=== PATIENT | male | born 1945 | race Caucasian/White ===

== ENCOUNTER 2016-04-10 15:57 | Outpatient (RCR) | payer MEDICARE | END 2016-07-09 | disposition home or self-care (01) | LOC: ONC 15:57 | PROVIDERS: ATTEND Radiology Radiation Oncology | DX: C61 Malignant neoplasm of prostate (principal) | CPT/HCPCS: 36415; 84153 ==

== ENCOUNTER → 2016-04-10 | Outpatient (CLI) | payer MEDICARE ==
[~2016-04-10] MED LIST: ASP81CT PO; ASPI-9 PO; ATEN100T88 PO; ATEN50TA PO; CLOP75TA PO; CYCL5TAB PO; DOXA2TAB2 PO; HYDR1TAB PO; LISI20TA PO; LOVA20TA2 PO; MTF500T PO; MULT1CAP27 PO; NIFE60TA74 PO; OMEG-11 PO; OMG1KC PO; QUET200T28 PO; QUET50TA21 PO; TRM50T PO
== END ==
LOC: ONC 08:24
PROVIDERS: ATTEND Radiology Radiation Oncology
DX: C61 Malignant neoplasm of prostate (principal)

== ENCOUNTER → 2016-10-09 | Outpatient (CLI) | payer MEDICARE | LOC: EDSTATUS 07-10 14:23 → ONC 14:15 | PROVIDERS: ATTEND Radiology Radiation Oncology | DX: C61 Malignant neoplasm of prostate (principal) | CPT/HCPCS: 36415; 84153 ==

== ENCOUNTER 2017-04-16 06:30 | Outpatient (CLI) | payer MEDICARE ==
[~2017-04-16] VITALS: Ht 170.2 cm; Wt 95.3 kg
[2017-04-16] MEDS ORDERED: OMEG-179 PO (10:30)
[2017-04-16] MEDS ORDERED: ATEN50TA PO (10:30)
[2017-04-16] MEDS ORDERED: DOXA2TAB2 PO (10:30)
[2017-04-16] MEDS ORDERED: METF500T4 PO (10:30)
[2017-04-16] MEDS ORDERED: NIFE60TA64 PO (10:30)
[2017-04-16] MEDS ORDERED: QUET200T57 PO (10:30)
[2017-04-16] MEDS ORDERED: MULT1TAB69 PO (10:30)
[2017-04-16] MEDS ORDERED: CLOP75TA28 PO (10:30)
[2017-04-16] MEDS ORDERED: ASPI-586 PO (10:30)
[2017-04-16] MEDS ORDERED: LOVA20TA2 PO (10:30)
[2017-04-18] MEDS ORDERED: ACHD5005 PO (12:46)
== END 2017-04-16 10:48 ==
LOC: PREOP 06:30
PROVIDERS: ATTEND Surgery
DX: Z01.818 Encounter for other preprocedural examination (principal); L72.3 Sebaceous cyst

== ENCOUNTER → 2017-06-07 | Outpatient (CLI) | payer MEDICARE ==
[~2017-06-07] MED LIST changes: +ACHD5005 PO; +ASPI-586 PO; +CATHETER FLUSH 10 ML SYR IV PRN; +CLOP75TA28 PO; +GADOBUTROL 10 MMOL/10 ML (GADAVIST) VIAL IV ONE; +METF500T5 PO; +MULT1TAB69 PO; +NIFE60TA64 PO; +OMEG-179 PO; +QUET200T57 PO
--- NOTE | 2017-06-07 16:10 | Diagnostic Imaging Report ---
INDICATION: Prostate carcinoma. TECHNIQUE: The patient was administered 26.9 mCi of technetium 99M MDP intravenously and whole-body imaging was performed after a 3 hour delay. COMPARISON: No prior studies are available for comparison. FINDINGS: There is normal uptake of activity by the axial and appendicular skeleton. There is uptake by both kidneys with excretion into the urinary bladder. No abnormal foci of tracer accumulation is seen to suggest osseous metastatic disease. There are degenerative changes of the bilateral knees. IMPRESSION: No scintigraphic evidence of osseous metastatic disease. Dictated by: Dictated on workstation # [id number]
--- NOTE | 2017-06-07 17:35 | Diagnostic Imaging Report ---
PROCEDURE: MRI pelvis with and without contrast. TECHNIQUE: Multiplanar, multisequence MRI of the pelvis was performed with and without contrast. INDICATION: Prostate cancer. There are no previous MRI pelvis examinations available for comparison. FINDINGS: The nuclear medicine bone scan performed earlier today in conjunction with this study failed to show any sign of metastatic disease. On this exam, there is no abnormal signal arising from the osseous structures to suggest a marrow replacement process such as metastatic disease. There is no sign of a fracture either. On the T1 sagittal images, there is a vague area of slightly diminished signal within the vertebral body of S2. There is no corresponding abnormality seen on the other sequences, however. There is no abnormal uptake in this region on the bone scan either. Consequently, this finding is unlikely related to a significant abnormality. There is only moderate degenerative disease of the hip joints. There is no evidence for avascular necrosis of either hip joint. There is a fairly well circumscribed 1 cm area of diminished density in the right ilium. This is of uncertain etiology although most likely a benign process. There is no pelvic mass or free fluid collection noted. IMPRESSION: There is no evidence for an acute bony abnormality and there is no sign of metastatic disease. Dictated by: Dictated on workstation # [id number]
== END ==
LOC: CARD 11:32
PROVIDERS: ATTEND Radiology Radiation Oncology
DX: C61 Malignant neoplasm of prostate (principal)
CPT/HCPCS: 72197; 78306

== ENCOUNTER 2017-06-20 14:32 | Outpatient (RCR) | payer MEDICARE ==
[2017-06-07 11:50] LABS: CREATININE SERUM 0.82 MG/DL (0.60-1.30)
[~2017-06-20 14:32] MED LIST changes: -CATHETER FLUSH 10 ML SYR IV PRN; -GADOBUTROL 10 MMOL/10 ML (GADAVIST) VIAL IV ONE
== END 2017-07-10 | disposition home or self-care (01) ==
LOC: ONC 14:32
PROVIDERS: ATTEND Radiology Radiation Oncology
DX: C61 Malignant neoplasm of prostate (principal)
CPT/HCPCS: 36415; 76873; 82565; 84153; 84520; 99212; 99213

== ENCOUNTER → 2017-07-13 | Outpatient (CLI) | payer MEDICARE ==
[~2017-07-13] VITALS: Ht 170.2 cm; Wt 97.1 kg
[~2017-07-13] MED LIST changes: +CATHETER FLUSH 10 ML SYR IV PRN; +REGADENOSON 0.4 MG/5 ML SYR (LEXISCAN) IV ONE
[2017-07-13 09:30] VITALS: BP 153/70
[2017-07-13 09:32] VITALS: BP 136/71
--- NOTE | 2017-07-20 09:54 | STRESS TEST ---
DATE OF SERVICE: 07/13/2017 RESTING AND POST REGADENOSON TECHNETIUM-99M TETROFOSMIN SPECT CT IMAGING CLINICAL DIAGNOSIS: Coronary artery disease. ORDERING PHYSICIAN: DINORAH Lucio. PRIMARY PHYSICIAN: Ross Rai DO. Baseline images were carried out after injection of 11 mCi of technetium-99m tetrofosmin. This was followed by 0.4 mg regadenoson and 29.5 mCi of technetium-99m tetrofosmin for stress imaging. The electrocardiogram showed sinus rhythm at baseline. It did not change significantly with the regadenoson infusion. There was a right bundle branch block that persisted throughout the study. 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 Review of images at rest and following stress indicates diminished count uptake in the inferior wall both at rest and following regadenoson infusion. This is likely diaphragmatic attenuation. Gated images show normal global left ventricular systolic function with normal regional wall motion, including the inferior wall. Left ventricular ejection fraction is calculated to be 58%. Left ventricular end diastolic volume is 97 mL. TID is absent (1.17). CONCLUSIONS: 1. No evidence of any significant myocardial ischemia or infarction on this study. 2. Normal regional wall motion. 3. Normal global left ventricular systolic function with a calculated ejection fraction of 58%. Job ID: [id number] DocumentID: [id number] Dictated Date: 07/20/2017 07:04:47 Plate Finisher Date: 07/20/2017 09:53:53 Dictated By: DUSTY GARCIA MD, MA, FACP, FACC,
== END ==
LOC: CARD 07:24
PROVIDERS: ATTEND Nurse Practitioner Family
DX: I25.10 Atherosclerotic heart disease of native coronary artery without angina pectoris (principal); I10 Essential (primary) hypertension; E78.5 Hyperlipidemia, unspecified; E11.9 Type 2 diabetes mellitus without complications; E66.8 Other obesity
CPT/HCPCS: 78452; 93017

== ENCOUNTER → 2017-07-26 | Outpatient (CLI) | payer MEDICARE ==
[~2017-07-26] MED LIST changes: -CATHETER FLUSH 10 ML SYR IV PRN; -REGADENOSON 0.4 MG/5 ML SYR (LEXISCAN) IV ONE
== END ==
LOC: CARD 13:25
PROVIDERS: ATTEND Nurse Practitioner Family
DX: I25.10 Atherosclerotic heart disease of native coronary artery without angina pectoris (principal); I10 Essential (primary) hypertension; E78.5 Hyperlipidemia, unspecified; E11.9 Type 2 diabetes mellitus without complications; E66.8 Other obesity; I77.89 Other specified disorders of arteries and arterioles
CPT/HCPCS: 93306

== ENCOUNTER 2017-09-12 12:04 | Outpatient (RCR) | payer MEDICARE ==
[~2017-09-12 12:04] MED LIST changes: +METF-397 PO; -METF500T5 PO
== END 2017-10-12 | disposition home or self-care (01) ==
LOC: ONC 12:04
PROVIDERS: ATTEND Radiology Radiation Oncology
DX: C61 Malignant neoplasm of prostate (principal)
CPT/HCPCS: 84153

== ENCOUNTER 2018-02-22 05:31 | Outpatient (CLI) | payer MEDICARE ==
[~2018-02-22] VITALS: Ht 170.2 cm; Wt 97.1 kg
== END 2018-02-22 11:29 | disposition home or self-care (01) ==
LOC: PREOP 05:31
PROVIDERS: ATTEND Surgery
DX: Z01.818 Encounter for other preprocedural examination (principal)

== ENCOUNTER 2018-02-27 09:33 | Day surgery (SDC) | payer MEDICARE ==
[~2018-02-27] VITALS: Ht 170.2 cm; Wt 97.1 kg
[2018-02-27 09:40] VITALS: BP 164/71
[2018-02-27] MEDS ORDERED: ceFAZolin 2 GM IV Premixed 50 ML IV ONE (09:45)
[2018-02-27] MEDS: LACTATED RINGERS 1,000 ML IV PRN ×2 (10:12→12:50)
--- NOTE | 2018-02-27 10:34 | Progress Note-Pre Operative ---
Pre-Operative Progress Note H&P Reviewed The H&P was reviewed, patient examined and no changes noted. Date Seen by Provider: Feb 13, 2018 Time Seen by Provider: 11:00 Date H&P Reviewed: Feb 27, 2018 Time H&P Reviewed: 10:33 Pre-Operative Diagnosis: Skin lesion LARRY NO MD Feb 27, 2018 10:34
[2018-02-27] MEDS ORDERED: fentaNYL INJECTION 100 MCG/2 ML AMP ONE (10:35)
[2018-02-27] MEDS ORDERED: proPOfol 200 MG/20 ML (DIPRIVAN) VIAL IV ONE (10:35)
[2018-02-27] MEDS ORDERED: ONDANSETRON 4 MG/2 ML (SDV) Z0FRAN ONE (10:35)
[2018-02-27] MEDS ORDERED: LIDOCAINE PF 2% 5 ML (XYLOCAINE) VIAL ONE (10:35)
[2018-02-27] MEDS ORDERED: SEVOFLURANE (ULTANE) 15 ML INHAL SOLN ONE ×4 (10:36→12:54)
[2018-02-27] MEDS ORDERED: MIDAZOLAM 2 MG/2 ML (VERSED) VIAL ONE (10:36)
[2018-02-27] MEDS ORDERED: BUP/EPI 0.5% 1:200,000 (SENSORCAINE) 30 ML VIAL ONE (10:54)
[2018-02-27] MEDS ORDERED: TRAM50TA2 PO (12:31)
--- NOTE | 2018-02-27 12:33 | Discharge Inst-Simple/Standard ---
Discharge Inst-Standard Discharge Medications New, Converted or Re-Newed RX: RX on Chart Patient Instructions/Follow Up Plan of Care/Instructions/FU: Band aid off in 48 hours. F/U with my nurse in 10 days for suture removal Activity as Tolerated: Yes Discharge Diet: No Restrictions LARRY NO MD Feb 27, 2018 12:33
--- NOTE | 2018-02-27 12:41 | Operative Report ---
Operative Report Date of Procedure/Surgery Feb 27, 2018 Surgeon (s) LARRY NO MD Staff Nuclear Medicine Technologist (s): N/A Post-Operative Diagnosis same Procedure Performed excision Description of Procedure Anesthesia Type: General Estimated blood loss (mL): minimal Specimen(s) collected/removed skin lesion Description of the Procedure Indication for the procedure: This gentleman presented with an ulcerated lesion with everted edges involving the left side of his neck, requiring histologic confirmation. He was therefore offered excision with frozen section to achieve this and ensure negative margins, should carcinoma be discovered. Informed consent was obtained after reviewing the operative details and complications of hematoma and wound infection. Description of the procedure: He was placed supine on the operative table and general anesthesia induced. A gram of Ancef was administered intravenously as prophylaxis against wound infection. Sequential compression devices were placed around his legs, to minimize the risk of venous thrombosis. His neck was prepared and draped in the usual sterile manner. Preemptive analgesia was established using 0.5 percent Marcaine with epinephrine. An elliptical incision about 4 cm in length by 2 cm in width was made and the lesion excised down to the subcutaneous tissue. It was oriented with silk sutures and then sent for histological examination. Hemostasis was achieved using cautery and the incision closed using a deeper layer of 3-0 Vicryl and 6-0 nylon for skin, in an interrupted fashion. A nonadherent dressing was then applied. He tolerated the procedure well, was extubated in the operating room and taken to the recovery room in a stable condition. Findings of the Procedure See op report Allergies and Home Medications Allergies Coded Allergies: No Known Drug Allergies (Unverified , 02/22/18) Home Medications Aspirin 81 Mg Tablet.dr, 81 MG PO DAILY, (Reported) Atenolol 50 Mg Tablet, 100 MG PO BID, (Reported) TAKE 2 (50MG) TABS Clopidogrel Bisulfate 75 Mg Tablet, 75 MG PO DAILY, (Reported) Doxazosin Mesylate 2 Mg Tablet, 2 MG PO HS, (Reported) Lisinopril 20 Mg Tablet, 20 MG PO BID, (Reported) Lovastatin 20 Mg Tablet, 20 MG PO HS, (Reported) Metformin HCl 500 Mg Tablet, 500 MG PO BID WITH MEALS, (Reported) Multivitamin 1 Each Tablet, 1 EACH PO DAILY, (Reported) Nifedipine 60 Mg Tab.er.24, 60 MG PO DAILY, (Reported) [place]-3S/Dha/Epa/Fish Oil 1 Each Capsule, 1,200 MG PO BID, (Reported) Quetiapine Fumarate 200 Mg Tablet, 200 MG PO HS, (Reported) Tramadol HCl 50 Mg Tablet, 50 MG PO Q12H PRN for PAIN-MILD TO MODERATE Prescribed by: LARRY NO on 02/27/18 1231 Patient Home Medication List Home Medication List Reviewed: Yes LARRY NO MD Feb 27, 2018 12:41
[2018-02-27] MEDS ORDERED: PHENYLEPHRINE 100 MCG/ML 10 ML (ANESTHESIA) SYR ONE (12:55)
[2018-02-27] MEDS ORDERED: GLYCOPYRROLATE 0.2 MG/ML (ROBINUL) 2 ML VIAL ONE (12:55)
[2018-02-27] MEDS ORDERED: ONDANSETRON 4 MG/2 ML (SDV) Z0FRAN IVP PRN (13:00)
[2018-02-27] MEDS ORDERED: HYDROmorphone 2 MG/ML VIAL (DILAUDID) IV ONE (13:00)
[2018-02-27 13:25] VITALS: BP 137/71
[2018-02-27 14:00] VITALS: BP 142/65
--- NOTE | 2018-02-27 14:23 | Anesthesia-General Post-Op ---
General Patient Condition Mental Status/LOC: Same as Preop Cardiovascular: Satisfactory Nausea/Vomiting: Absent Respiratory: Satisfactory Pain: Controlled Complications: Absent Post Op Complications Complications None Follow Up Care/Instructions Patient Instructions None needed. Anesthesia/Patient Condition Patient Condition Patient is doing well, no complaints, stable vital signs, no apparent adverse anesthesia problems. TESHA MCLAUGHLIN DO Feb 27, 2018 14:23
[2018-02-27 14:30] VITALS: BP 155/72
[2018-02-27 14:50] VITALS: BP 155/72
--- NOTE | 2018-02-27 14:50 | NUR ---
ALERT, CHEERFUL, DENIES COMPLAINTS THROUGHOUT RECOVERY. BANDAIDS REMAIN D/I TO LEFT NECK SURGICAL SITE. TAKING PO FLUIDS WELL. REQUESTING DISMISSAL.
== END 2018-02-27 14:50 | disposition home or self-care (01) ==
LOC: SDC 09:33
PROVIDERS: ATTEND Surgery
DX: L85.9 Epidermal thickening, unspecified (principal); Z11.2 Encounter for screening for other bacterial diseases; I25.10 Atherosclerotic heart disease of native coronary artery without angina pectoris; I77.9 Disorder of arteries and arterioles, unspecified; E11.9 Type 2 diabetes mellitus without complications; E78.5 Hyperlipidemia, unspecified; I10 Essential (primary) hypertension; Z79.84 Long term (current) use of oral hypoglycemic drugs; Z79.899 Other long term (current) drug therapy; Z87.891 Personal history of nicotine dependence; Z95.5 Presence of coronary angioplasty implant and graft; E66.9 Obesity, unspecified; Z79.82 Long term (current) use of aspirin; Z85.46 Personal history of malignant neoplasm of prostate; Z85.828 Personal history of other malignant neoplasm of skin; Z92.3 Personal history of irradiation; Z68.33 Body mass index [BMI] 33.0-33.9, adult
CPT/HCPCS: 82962; 87081

== ENCOUNTER 2018-04-05 12:21 | Outpatient (RCR) | payer MEDICARE ==
[~2018-04-05 12:21] MED LIST changes: +TRAM50TA2 PO
== END 2018-07-04 | disposition home or self-care (01) ==
LOC: ONC 12:21
PROVIDERS: ATTEND Radiology Radiation Oncology
DX: C61 Malignant neoplasm of prostate (principal)
CPT/HCPCS: 36415; 84153

== ENCOUNTER → 2018-09-06 | Outpatient (CLI) | payer MEDICARE ==
--- NOTE | 2018-09-06 17:00 | Diagnostic Imaging Report ---
INDICATION: Thyroid nodules, follow-up. TECHNIQUE: Grayscale sonographic images of the thyroid gland. CORRELATION STUDY: 12/30/2013. FINDINGS: RIGHT LOBE: 4.8 x 2.4 x 2.0 cm. In the mid inferior aspect is a slightly hypoechoic, solid-appearing mass measuring approximately 2.2 x 1.9 x 1.3 cm, previously 2.3 x 2.1 x 2.0 cm, generally stable. There do appear to be a few echogenic calcifications. No appreciable internal vascular blood flow. Slightly more superiorly, but immediately adjacent there is additional nodule currently 17 x 12 x 11 mm, previously 13 x 13 x 12 mm, perhaps slightly increased in size. This is iso-to slightly hyperechoic with internal vascularity and a few microcalcifications suggested. LEFT LOBE: 4.2 x 2.4 x 2.4 cm. A mixed solid and cystic mass in the central aspect measures 3.2 x 2.0 x 2.0 cm, previously 2.9 x 2.1 x 1.9 cm, generally stable. Minimal internal vascularity. Isthmus appears unremarkable. IMPRESSION: Bilateral thyroid masses again demonstrated. There has been slight interval increase in size of the smallest lesion of the right lobe. This has the most atypical features. Either very short-term follow-up imaging or perhaps fine-needle aspiration/biopsy would be recommended. (Normal gland size: 4-5 x 2 x 2 cm) Dictated by: Dictated on workstation # [id number]
== END ==
LOC: RAD 10:33
PROVIDERS: ATTEND Family Medicine
DX: E04.2 Nontoxic multinodular goiter (principal)
CPT/HCPCS: 76536

== ENCOUNTER → 2018-09-19 | Outpatient (CLI) | payer MEDICARE ==
[~2018-09-19] VITALS: Ht 172.7 cm; Wt 99.8 kg
[~2018-09-19] MED LIST changes: +LIDOCAINE 1% INJ 20 ML 20 ML VIAL INJ ONE
--- NOTE | 2018-09-19 14:36 | Diagnostic Imaging Report ---
Indication: Right thyroid nodule. Patient presents for ultrasound-guided biopsy. Correlation made with prior thyroid ultrasound from 09/06/2018. Patient was brought to the procedure room and placed on the table in the supine position. Ultrasound imaging over the right neck was performed, evaluated appropriate injury site. Right neck was prepped and draped in the usual sterile fashion. Small amount of 1% lidocaine was utilized for local anesthesia. A total of 3 passes were made into the slightly hyperechoic nodule in the right lobe of the thyroid utilizing a 25-gauge needle. Procedure was technically challenging due to the deep nature of the nodule as well as significant movement of the nodule with each each respiration. This made needle visualization extremely difficult. Fine-needle aspiration technique was utilized. Hemostasis was obtained using manual compression. Patient tolerated the procedure well. Impression: Ultrasound-guided fine-needle aspiration of the right lobe of the thyroid nodule. Procedure was significantly challenging for reasons cited above. If cytology results are inconclusive or indeterminate, a followup thyroid ultrasound in 6 months is recommended to confirm stability of the nodule in question in the right lobe. Dictated by: Dictated on workstation # [id number]
== END ==
LOC: RAD 09:20
PROVIDERS: ATTEND Family Medicine
DX: E04.1 Nontoxic single thyroid nodule (principal)

== ENCOUNTER → 2018-10-03 | Outpatient (CLI) | payer MEDICARE ==
[~2018-10-03] MED LIST changes: -LIDOCAINE 1% INJ 20 ML 20 ML VIAL INJ ONE
== END ==
LOC: LAB 08:15
PROVIDERS: ATTEND Radiology Radiation Oncology
DX: C61 Malignant neoplasm of prostate (principal)
CPT/HCPCS: 36415; 84153

== ENCOUNTER 2018-10-23 14:25 | Outpatient (RCR) | payer MEDICARE | END 2018-10-30 09:28 | disposition home or self-care (01) | LOC: ONC 14:25 | PROVIDERS: ATTEND Radiology Radiation Oncology | DX: C61 Malignant neoplasm of prostate (principal) | CPT/HCPCS: 99213 ==

== ENCOUNTER → 2018-10-31 | Outpatient (CLI) | payer MEDICARE ==
--- NOTE | 2018-10-31 16:57 | Diagnostic Imaging Report ---
INDICATION: Prostate carcinoma. TECHNIQUE: Patient was administered 26 mCi technetium 99m MDP intravenously and whole body imaging was performed after three-hour delay. COMPARISON: Correlation is made with prior whole body bone scan from 06/07/2017. FINDINGS: Normal uptake within the axial and appendicular skeleton is noted. There is uptake by the kidneys with excretion into the urinary bladder. Degenerative uptake in bilateral knees is again noted, particularly in the medial compartment of the right knee. There is some mild uptake in the upper and midlumbar spine, similar to prior exam and may be degenerative. Small foci in the [id number] thoracic spine are also seen which may be degenerative. There is mild uptake involving the left posterior rib, approximately the left eighth rib. This is similar to prior exam. No new foci are seen. IMPRESSION: Overall, stable whole body bone scan when compared with prior examination from 06/07/2017. There are some degenerative changes, as described. Left posterior approximately eighth rib uptake is similar to prior exam. Continued followup could be obtained. Dictated by: Dictated on workstation # [id number]
== END ==
LOC: CARD 11:28
PROVIDERS: ATTEND Radiology Radiation Oncology
DX: M17.0 Bilateral primary osteoarthritis of knee (principal); C61 Malignant neoplasm of prostate
CPT/HCPCS: 78306

== ENCOUNTER 2018-12-19 09:07 | Outpatient (RCR) | payer MEDICARE ==
[2018-11-28 14:46] LABS: BASOPHILS % (AUTO) 0 % (0-10); EOSINOPHILS # (AUTO) 0.2 10^3/uL (0.0-0.3); EOSINOPHILS % (AUTO) 3 % (0-10); HEMATOCRIT 37 % (40-54); HEMOGLOBIN 12.1 G/DL (13.3-17.7); LYMPHOCYTES # (AUTO) 1.4 X 10^3 (1.0-4.0); LYMPHOCYTES % (AUTO) 27 % (12-44); MEAN CORPUSCULAR HEMOGLOBIN 29 PG (25-34); MEAN CORPUSCULAR HGB CONC 33 G/DL (32-36); MEAN CORPUSCULAR VOLUME 87 FL (80-99); MEAN PLATELET VOLUME 10.6 FL (7.4-10.4); MONOCYTES # (AUTO) 0.3 X 10^3 (0.0-1.0); MONOCYTES % (AUTO) 5 % (0-12); NEUTROPHILS # (AUTO) 3.4 X 10^3 (1.8-7.8); NEUTROPHILS % (AUTO) 65 % (42-75); PLATELET COUNT 212 10^3/uL (130-400); RED CELL DISTRIBUTION WIDTH 14.2 % (10.0-14.5); WHITE BLOOD COUNT 5.3 10^3/uL (4.3-11.0)
[2018-11-28 15:05] LABS: ALANINE AMINOTRANSFERASE 21 U/L (0-55); ALBUMIN 4.2 GM/DL (3.2-4.5); ALKALINE PHOSPHATASE 68 U/L (40-136); BILIRUBIN,TOTAL 0.4 MG/DL (0.1-1.0); BUN/CREATININE RATIO 11; CALCIUM 9.1 MG/DL (8.5-10.1); CARBON DIOXIDE 28 MMOL/L (21-32); CHLORIDE 105 MMOL/L (98-107); CREATININE SERUM 1.17 MG/DL (0.60-1.30); GFR ESTIMATED > 60; GLUCOSE 204 MG/DL (70-105); SODIUM 141 MMOL/L (135-145)
== END 2019-02-13 | disposition home or self-care (01) ==
LOC: ONC 09:07
PROVIDERS: ATTEND Internal Medicine Hematology & Oncology
DX: C61 Malignant neoplasm of prostate (principal)
CPT/HCPCS: 36415; 80053; 84153; 85025; 99213; 99214

== ENCOUNTER 2019-05-20 08:26 | Emergency (ER) | payer MEDICARE ==
[~2019-05-20] VITALS: Ht 172.7 cm; Wt 113.6 kg
[~2019-05-20 08:26] MED LIST changes: +NIFE-24 PO; -NIFE60TA64 PO; +QUET200T29 PO; -QUET200T57 PO; -TRAM50TA2 PO
[2019-05-20] MEDS ORDERED: LIDOCAINE UROJET 2% GEL 10 ML PKG ONE (08:31)
[2019-05-20] MEDS ORDERED: LIDOCAINE UROJET 2% GEL 10 ML PKG TOP ONE (08:45)
[2019-05-20 08:49] LABS: CLARITY,URINE SL CLOUDY; COLOR,URINE RED; GLUCOSE, URINE (UA) TRACE (NEGATIVE); KETONES,URINE 1+ (NEGATIVE); LEUKOCYTE ESTERASE ,URINE 2+ (NEGATIVE); NITRITE,URINE POSITIVE (NEGATIVE); PH,URINE 6.5 (5-9); PROTEIN,URINE 3+ (NEGATIVE)
[2019-05-20 09:07] LABS: BASOPHILS % (AUTO) 0 % (0-10); EOSINOPHILS # (AUTO) 0.1 10^3/uL (0.0-0.3); EOSINOPHILS % (AUTO) 1 % (0-10); HEMATOCRIT 27 % (40-54); HEMOGLOBIN 8.8 G/DL (13.3-17.7); LYMPHOCYTES # (AUTO) 1.3 X 10^3 (1.0-4.0); LYMPHOCYTES % (AUTO) 14 % (12-44); MEAN CORPUSCULAR HEMOGLOBIN 28 PG (25-34); MEAN CORPUSCULAR HGB CONC 32 G/DL (32-36); MEAN CORPUSCULAR VOLUME 86 FL (80-99); MEAN PLATELET VOLUME 10.2 FL (7.4-10.4); MONOCYTES # (AUTO) 0.8 X 10^3 (0.0-1.0); MONOCYTES % (AUTO) 8 % (0-12); NEUTROPHILS # (AUTO) 7.2 X 10^3 (1.8-7.8); NEUTROPHILS % (AUTO) 76 % (42-75); PLATELET COUNT 249 10^3/uL (130-400); RED CELL DISTRIBUTION WIDTH 13.7 % (10.0-14.5); WHITE BLOOD COUNT 9.4 10^3/uL (4.3-11.0)
[2019-05-20 09:12] LABS: POTASSIUM 3.8 MMOL/L (3.6-5.0)
[2019-05-20 09:13] LABS: BACTERIA,URINE TRACE /HPF; BILIRUBIN,URINE 3+ (NEGATIVE); RBC,URINE TNTC /HPF
[2019-05-20 09:14] LABS: CALCIUM 8.9 MG/DL (8.5-10.1)
[2019-05-20 09:15] LABS: TOTAL PROTEIN 6.8 GM/DL (6.4-8.2)
[2019-05-20 09:17] LABS: BILIRUBIN,TOTAL 0.5 MG/DL (0.1-1.0)
[2019-05-20 09:18] LABS: CREATININE SERUM 1.42 MG/DL (0.60-1.30)
--- NOTE | 2019-05-20 10:15 | NUR ---
NAJERA CATH CON'T TO DRAIN URINE BLOOD WITH BLOOD.
[2019-05-20] MEDS ORDERED: cefTRIAXone FOR IV USE 1,000 MG in WATER (STERILE) FOR INJECTION 10 ML IV ONE (10:45)
[2019-05-20] MEDS ORDERED: CEFD300C3 PO (10:47)
--- NOTE | 2019-05-20 10:47 | ED GU-Female ---
General Chief Complaint: - Urinary Stated Complaint: TROUBLE URINATING Nursing Triage Note: AMB TO ED PMH OF PROSTATE CA HAS HAD TROUBLE URINATING SINCE SUNDAY Nursing Sepsis Screen: No Definite Risk Source: patient Exam Limitations: no limitations History of Present Illness Date Seen by Provider: May 20, 2019 Time Seen by Provider: 10:43 Initial Comments ER with difficulty urinating for a few days. History of prostate cancer with prostatectomy at . Timing/Duration: getting worse Severity/Quality: moderate Location: suprapubic Activities at Onset: none Prior Genitourinary Problems: none Allergies and Home Medications Allergies Coded Allergies: No Known Drug Allergies (Unverified , 02/22/18) Home Medications Aspirin 81 Mg Tablet.dr, 81 MG PO DAILY, (Reported) Atenolol 50 Mg Tablet, 100 MG PO BID, (Reported) TAKE 2 (50MG) TABS Clopidogrel Bisulfate 75 Mg Tablet, 75 MG PO DAILY, (Reported) Doxazosin Mesylate 2 Mg Tablet, 2 MG PO HS, (Reported) Lisinopril 20 Mg Tablet, 20 MG PO BID, (Reported) Lovastatin 20 Mg Tablet, 20 MG PO HS, (Reported) Metformin HCl 500 Mg Tablet, 500 MG PO BID WITH MEALS, (Reported) Multivitamin 1 Each Tablet, 1 EACH PO DAILY, (Reported) Nifedipine 60 Mg Tab.er.24, 60 MG PO DAILY, (Reported) [place]-3S/Dha/Epa/Fish Oil 1 Each Capsule, 1,200 MG PO BID, (Reported) Quetiapine Fumarate 200 Mg Tablet, 200 MG PO HS, (Reported) Tramadol HCl 50 Mg Tablet, 50 MG PO Q12H PRN for PAIN-MILD TO MODERATE Prescribed by: LARRY NO on 02/27/18 1231 Patient Home Medication List Home Medication List Reviewed: Yes Review of Systems Review of Systems Constitutional: see HPI EENTM: see HPI Respiratory: no symptoms reported Cardiovascular: no symptoms reported Genitourinary: see HPI Musculoskeletal: no symptoms reported Skin: no symptoms reported Psychiatric/Neurological: No Symptoms Reported Endocrine: No Symptoms Reported Past Ennxlcv-Fdqvzq-Rtyvhj Hx Patient Social History Alcohol Use: Denies Use Recreational Drug Use: No Smoking Status: Never a Smoker Former Smoker, Quit: Apr 16, 1976 Recent Foreign Travel: No Contact w/Someone Who Travel: No Recent Infectious Disease Expo: No Recent Hopitalizations: No Immunizations Up To Date Tetanus Booster (TDap): More than 5yrs Date of Pneumonia Vaccine: Apr 16, 2012 Date of Influenza Vaccine: Nov 19, 2017 Seasonal Allergies Seasonal Allergies: No Past Medical History Surgeries: Yes ( tongue surgery, cyst on spine tailbone, SKIN CA) Thyroidectomy Respiratory: No Cardiac: Yes (STENTS X4, LAST ONE 2013, "ABOUT 8" HEART ATTACKS PRIOR TO STENTS ) Heart Attack, High Cholesterol, Hypertension Neurological: No Sexually Transmitted Disease: No HIV/AIDS: No Genitourinary: No Gastrointestinal: No Musculoskeletal: Yes Arthritis Endocrine: Yes Diabetes, Non-Insulin dep HEENT: Yes (GLASSES) Loss of Vision: Bilateral Hearing Impairment: Denies Cancer: Yes (TONGUE) Prostate, Skin Did You Recieve Any Treatments: Yes What Type of Treatment Did You: Radiation, Surgical Intervention Psychosocial: No Sleep Difficulties Integumentary: No Blood Disorders: No Adverse Reaction/Blood Tranf: No (N/A) Physical Exam Vital Signs Vital Signs - First Documented 05/20/19 08:26 Temp 36.3 Pulse 77 Resp 18 B/P (MAP) 135/73 (93) Pulse Ox 97 O2 Delivery Room Air Capillary Refill : Less Than 3 Seconds Height, Weight, BMI Height: 5'8.00" Weight: 220lbs. 0.0oz. [id number]; 38.00 BMI Method:Stated General Appearance: WD/WN, no apparent distress HEENT: PERRL/EOMI, normal ENT inspection Neck: non-tender, full range of motion Cardiovascular: normal peripheral pulses Respiratory: no respiratory distress, no accessory muscle use Gastrointestinal: non tender, soft Neurologic/Psychiatric: alert, normal mood/affect, oriented x 3 Skin: normal color, warm/dry Progress/Results/Core Measures Suspected Sepsis Recent Fever Within 48 Hours: No Infection Criteria Present: None New/Unexplained Altered Menta: No Sepsis Screen: No Definite Risk SIRS Temperature: Pulse: 77 Respiratory Rate: 18 Laboratory Tests 05/20/19 08:56: White Blood Count 9.4 Blood Pressure 135 /73 Mean: 93 Laboratory Tests 05/20/19 08:56: Creatinine 1.42H, Platelet Count 249, Total Bilirubin 0.5 Results/Orders Lab Results Laboratory Tests Test 05/20/19 08:43 05/20/19 08:56 Range/Units Urine Color RED H Urine Clarity SL CLOUDY Urine pH 6.5 5-9 Urine Specific [place] 1.020 1.016-1.022 Urine Protein 3+ H NEGATIVE Urine Glucose (UA) TRACE H NEGATIVE Urine Ketones 1+ H NEGATIVE Urine Nitrite POSITIVE H NEGATIVE Urine Bilirubin 3+ H NEGATIVE Urine Urobilinogen >=8.0 < = 1.0 MG/DL Urine Leukocyte Esterase 2+ H NEGATIVE Urine RBC (Auto) 3+ H NEGATIVE Urine RBC TNTC H /HPF Urine WBC 10-25 H /HPF Urine Squamous Epithelial Cells NONE /HPF Urine Crystals NONE /LPF Urine Bacteria TRACE /HPF Urine Casts NONE /LPF Urine Mucus NEGATIVE /LPF Urine Culture Indicated YES White Blood Count 9.4 4.3-11.0 10^3/uL Red Blood Count 3.16 L 4.35-5.85 10^6/uL Hemoglobin 8.8 L 13.3-17.7 G/DL Hematocrit 27 L 40-54 % Mean Corpuscular Volume 86 80-99 FL Mean Corpuscular Hemoglobin 28 25-34 PG Mean Corpuscular Hemoglobin Concent 32 32-36 G/DL Red Cell Distribution Width 13.7 10.0-14.5 % Platelet Count 249 130-400 10^3/uL Mean Platelet Volume 10.2 7.4-10.4 FL Neutrophils (%) (Auto) 76 H 42-75 % Lymphocytes (%) (Auto) 14 12-44 % Monocytes (%) (Auto) 8 0-12 % Eosinophils (%) (Auto) 1 0-10 % Basophils (%) (Auto) 0 0-10 % Neutrophils # (Auto) 7.2 1.8-7.8 X 10^3 Lymphocytes # (Auto) 1.3 1.0-4.0 X 10^3 Monocytes # (Auto) 0.8 0.0-1.0 X 10^3 Eosinophils # (Auto) 0.1 0.0-0.3 10^3/uL Basophils # (Auto) 0.0 0.0-0.1 10^3/uL Sodium Level 134 L 135-145 MMOL/L Potassium Level 3.8 3.6-5.0 MMOL/L Chloride Level 100 98-107 MMOL/L Carbon Dioxide Level 22 21-32 MMOL/L Anion Gap 12 5-14 MMOL/L Blood Urea Nitrogen 28 H 7-18 MG/DL Creatinine 1.42 H 0.60-1.30 MG/DL Estimat Glomerular Filtration Rate 49 BUN/Creatinine Ratio 20 Glucose Level 142 H 70-105 MG/DL Calcium Level 8.9 8.5-10.1 MG/DL Corrected Calcium 8.9 8.5-10.1 MG/DL Total Bilirubin 0.5 0.1-1.0 MG/DL Aspartate Amino Transf (AST/SGOT) 12 5-34 U/L Alanine Aminotransferase (ALT/SGPT) 12 0-55 U/L Alkaline Phosphatase 51 40-136 U/L Total Protein 6.8 6.4-8.2 GM/DL Albumin 4.0 3.2-4.5 GM/DL My Orders Orders - THUAN CARDENAS APRN Ceftriaxone For Iv Use (Rocephin For I (05/20/19 10:45) Medications Given in ED Current Medications Medications Dose Ordered Sig/Michelle Route Start Time Stop Time Status Last Admin Dose Admin Lidocaine HCl 10 ml ONCE ONCE TOP 05/20/19 08:45 05/20/19 08:46 DC 05/20/19 08:43 10 ML Vital Signs/I&O 05/20/19 08:26 Temp 36.3 Pulse 77 Resp 18 B/P (MAP) 135/73 (93) Pulse Ox 97 O2 Delivery Room Air Capillary Refill : Less Than 3 Seconds Blood Pressure Mean: 93 Departure Communication (Admissions) Moncada catheter inserted, 800 cc of urine drained, dark red but without any clot. Discussed with the patient we should leave this in place for about a week. I'll give him Rocephin here and discharged home on Omnicef. Impression Primary Impression: Complicated UTI (urinary tract infection) Additional Impression: Urinary retention Disposition: 01 HOME, SELF-CARE Condition: Stable Departure-Patient Inst. Decision time for Depature: 10:45 Referrals: DINO BROWN DO (PCP) Primary Care Physician KATHERIN ESTES MD Patient Instructions: Urinary Retention (DC) Add. Discharge Instructions: 1. Antibiotics as directed 2. Call either Dr. Estes, urologist here in [place] or your own urologist. Ideally they would see you in about a week and remove the Moncada catheter in their office. If you're unable to get in with either of them in about 5-7 days then you can return to the emergency room to have the Moncada catheter removed. All discharge instructions reviewed with patient and/or family. Voiced understanding. Scripts Cefdinir (Cefdinir) 300 Mg Capsule 300 MG PO BID, #14 CAP Prov: THUAN CARDENAS APRN 05/20/19 THUAN CARDENAS APRN May 20, 2019 10:47
--- NOTE | 2019-05-20 11:01 | NUR ---
ON DISCHARGE PATIENT REPORTS THAT HE HAS LEG BAG'S AT HOME WILL TAKE NAJERA BAG AND CHANGE WHEN HE GET'S HOME APX 1500 URINE OUTPUT ON DISCHARGE URINE DARK BLOOD NO CLOTS
[2019-05-20 11:04] VITALS: BP 130/53
== END 2019-05-20 11:02 | disposition home or self-care (01) ==
LOC: EDUNIT# 08:26 → ER 08:28
DX: N39.0 Urinary tract infection, site not specified (principal); I10 Essential (primary) hypertension; E11.9 Type 2 diabetes mellitus without complications; I25.2 Old myocardial infarction; E78.00 Pure hypercholesterolemia, unspecified; Z85.46 Personal history of malignant neoplasm of prostate; Z79.82 Long term (current) use of aspirin; Z79.02 Long term (current) use of antithrombotics/antiplatelets; Z79.84 Long term (current) use of oral hypoglycemic drugs; Z87.891 Personal history of nicotine dependence; Z95.5 Presence of coronary angioplasty implant and graft; Z85.828 Personal history of other malignant neoplasm of skin
CPT/HCPCS: 36415; 51702; 80053; 81000; 85025; 87088; 96374

== ENCOUNTER 2019-05-22 09:00 | Emergency (ER) | payer MEDICARE ==
[~2019-05-22] VITALS: Ht 177 cm; Wt 113.6 kg
[~2019-05-22 09:00] MED LIST changes: +CEFD300C3 PO
[2019-05-22] MEDS ORDERED: LIDOCAINE UROJET 2% GEL 10 ML PKG ONE (09:10)
--- NOTE | 2019-05-22 09:27 | ED GU-Male ---
General Stated Complaint: TROUBLE URINATING History of Present Illness Date Seen by Provider: May 22, 2019 Time Seen by Provider: 09:15 Initial Comments 73 year old male, was here 2 days ago for inability to urinate. Ramirez catheter placed (16F), Rocephin given and Omnicef started. Prostatecomy at on April 16. He last drained the ramirez bag at 0100. This morning he has noted less urine output and suprapubic pain, no fever. Taking Omnicef as ordered. Timing/Duration: this morning Severity/Quality: mild Location: suprapubic Associated Symptoms: abdominal pain (suprapubic), dysuria; No fever/chills, No lower back pain, No nausea/vomiting Allergies and Home Medications Allergies Coded Allergies: No Known Drug Allergies (Unverified , 02/22/18) Home Medications Aspirin 81 Mg Tablet.dr, 81 MG PO DAILY, (Reported) Atenolol 50 Mg Tablet, 100 MG PO BID, (Reported) TAKE 2 (50MG) TABS Cefdinir 300 Mg Capsule, 300 MG PO BID Prescribed by: THUAN CARDENAS on 05/20/19 1047 Clopidogrel Bisulfate 75 Mg Tablet, 75 MG PO DAILY, (Reported) Doxazosin Mesylate 2 Mg Tablet, 2 MG PO HS, (Reported) Lisinopril 20 Mg Tablet, 20 MG PO BID, (Reported) Lovastatin 20 Mg Tablet, 20 MG PO HS, (Reported) Metformin HCl 500 Mg Tablet, 500 MG PO BID WITH MEALS, (Reported) Multivitamin 1 Each Tablet, 1 EACH PO DAILY, (Reported) Nifedipine 60 Mg Tab.er.24, 60 MG PO DAILY, (Reported) [place]-3S/Dha/Epa/Fish Oil 1 Each Capsule, 1,200 MG PO BID, (Reported) Quetiapine Fumarate 200 Mg Tablet, 200 MG PO HS, (Reported) Tramadol HCl 50 Mg Tablet, 50 MG PO Q12H PRN for PAIN-MILD TO MODERATE Prescribed by: LARRY NO on 02/27/18 1231 Patient Home Medication List Home Medication List Reviewed: Yes Review of Systems Review of Systems Constitutional: no symptoms reported, see HPI Genitourinary: see HPI; denies flank pain; hematuria, pain All Other Systemes Reviewed Negative Unless Noted: Yes Past Vkykaxa-Zcsnas-Amoqgj Hx Past Med/Social Hx: Reviewed Nursing Past Med/Soc Hx Patient Social History Former Smoker, Quit: Apr 16, 1976 Recent Foreign Travel: No Contact w/Someone Who Travel: No Recent Hopitalizations: No Immunizations Up To Date Tetanus Booster (TDap): More than 5yrs Date of Pneumonia Vaccine: Apr 16, 2012 Date of Influenza Vaccine: Nov 19, 2017 Seasonal Allergies Seasonal Allergies: No Past Medical History Surgeries: Yes ( tongue surgery, cyst on spine tailbone, SKIN CA) Thyroidectomy Respiratory: No Cardiac: Yes (STENTS X4, LAST ONE 2013, "ABOUT 8" HEART ATTACKS PRIOR TO STENTS ) Heart Attack, High Cholesterol, Hypertension Neurological: No Sexually Transmitted Disease: No HIV/AIDS: No Genitourinary: No Gastrointestinal: No Musculoskeletal: Yes Arthritis Endocrine: Yes Diabetes, Non-Insulin dep HEENT: Yes (GLASSES) Loss of Vision: Bilateral Hearing Impairment: Denies Cancer: Yes (TONGUE) Prostate, Skin Did You Recieve Any Treatments: Yes What Type of Treatment Did You: Radiation, Surgical Intervention Psychosocial: No Sleep Difficulties Integumentary: No Blood Disorders: No Adverse Reaction/Blood Tranf: No (N/A) Physical Exam Vital Signs Vital Signs - First Documented 05/22/19 09:05 Temp 36.6 Pulse 81 Resp 18 B/P (MAP) 148/77 (100) Pulse Ox 98 Capillary Refill : Height, Weight, BMI Height: 5'8.00" Weight: 220lbs. 0.0oz. 99.152182hs; 38.00 BMI Method:Stated General Appearance: WD/WN, no apparent distress Cardiovascular: normal peripheral pulses, regular rate, rhythm Respiratory: chest non-tender, lungs clear, normal breath sounds Gastrointestinal: normal bowel sounds, soft, other (bladder distended and tender to palpation) Neurologic/Psychiatric: no motor/sensory deficits, alert, normal mood/affect, oriented x 3 Progress/Results/Core Measures Suspected Sepsis SIRS Temperature: Pulse: Respiratory Rate: Blood Pressure / Mean: Results/Orders My Orders Orders - MEG BREAUX Lidocaine 2% (Urojet) (Xylocaine Urojet) (05/22/19 09:10) Phenazopyridine Tablet (Pyridium Tablet) (05/22/19 09:59) Medications Given in ED Current Medications Medications Dose Ordered Sig/Michelle Route Start Time Stop Time Status Last Admin Dose Admin Lidocaine HCl 10 ml STK-MED ONCE .ROUTE 05/22/19 09:10 05/22/19 09:16 DC 05/22/19 09:45 10 ML Vital Signs/I&O 05/22/19 09:05 Temp 36.6 Pulse 81 Resp 18 B/P (MAP) 148/77 (100) Pulse Ox 98 Capillary Refill : Progress Note : Time: 09:15 Progress Note patient seen and evaluated, ramirez removed, approximately 200 ml urine returned, tea colored. 22F catheter placed, bladder irrigated, small dark brown clots returned. When balloon inflated, no urine output, when balloon deflated, stream of urine continues. 22F removed and 20F inserted, with no resistance, balloon inflated and urine stream noted. Bladder no longer distended or tender. Patient reports relief of symptoms. Will give Pyridium. 1000 Continued urine output, no bladder distention, patient denies lower abdominal pain. 1015 Patient continues to have no problems, ramirez working. Discharge instructions and return precautions reviewed, offered Pyridium Rx, patient declined, will call PCP if needed. Departure Impression Primary Impression: Urinary retention Additional Impression: Ramirez catheter problem Qualified Codes: T83.9XXA - Unspecified complication of genitourinary prosthetic device, implant and graft, initial encounter Disposition: HOME, SELF-CARE Condition: Improved Departure-Patient Inst. Decision time for Depature: 10:00 Referrals: DINO BROWN DO (PCP/Family) Primary Care Physician Patient Instructions: How to Care for Your Ramirez Catheter, Male, Urinary Retention (DC) Add. Discharge Instructions: Continue to leave Ramirez in place, empty every 4-6 hours. Take antibiotics as prescribed. Follow up with Dr. De Paz, if complications with ramirez or further problems. Return to the Emergency Dept for new, urgent health care problems. Copy Copies To 1: DINO BROWN AMY ARNP May 22, 2019 09:27
[2019-05-22] MEDS ORDERED: PHENAZOPYRIDINE 100 MG (PYRIDIUM) TABLET PO STA (09:59)
[2019-05-22 10:11] VITALS: BP 148/77
== END 2019-05-22 10:11 | disposition home or self-care (01) ==
LOC: EDUNIT# 09:00 → ER 09:02
DX: T83.9XXA Unspecified complication of genitourinary prosthetic device, implant and graft, initial encounter (principal); R33.9 Retention of urine, unspecified; I25.2 Old myocardial infarction; E78.00 Pure hypercholesterolemia, unspecified; I10 Essential (primary) hypertension; E11.9 Type 2 diabetes mellitus without complications; Z79.84 Long term (current) use of oral hypoglycemic drugs
CPT/HCPCS: 51702

== ENCOUNTER 2019-05-22 11:56 | Emergency (ER) | payer MEDICARE ==
[~2019-05-22] VITALS: Ht 172.7 cm; Wt 97.7 kg
[2019-05-22] MEDS ORDERED: LIDOCAINE UROJET 2% GEL 10 ML PKG ONE (13:28)
--- NOTE | 2019-05-22 13:52 | ED GU-Male ---
General Chief Complaint: - Urinary Stated Complaint: TROUBLE URINATING Nursing Triage Note: Pt amb to room #6 with c/o catheter issues. Pt reports he was seen in this ED on this day, where a 20Fr ramirez catheter was placed after experiencing urinary retention. Pt reports upon returning home, urine began to leak around catheter. Pt reports he has had multiple indwelling urinary catheters placed since 05/20/19. Pt arrives with approx 200ml bloody urinary output in ramirez catheter. Pt denies penile pain or discomfort. Pt denies fever or cough. A&OX4. Source: patient Exam Limitations: no limitations History of Present Illness Date Seen by Provider: May 22, 2019 Time Seen by Provider: 12:20 Initial Comments Here with report of catheter issues. He was seen earlier this morning for the same and there was difficulty in placing that catheter to get continuous flow. They were able to achieve it finally with a 20 Italian catheter. After getting h ome he noted that when he stood up. Have urine leaking around the catheter. Denies pain. Does have history of TURP procedure last month. He is prescribed antibiotics. Severity/Quality: moderate Location: urethral Radiation: none Prior Genitourinary Problems: similar symptoms Associated Symptoms: abdominal pain (feels maybe slight suprapubic pressure); No dysuria, No fever/chills, No lower back pain, No nausea/vomiting Allergies and Home Medications Allergies Coded Allergies: No Known Drug Allergies (Unverified , 02/22/18) Home Medications Aspirin 81 Mg Tablet.dr, 81 MG PO DAILY, (Reported) Atenolol 50 Mg Tablet, 100 MG PO BID, (Reported) TAKE 2 (50MG) TABS Cefdinir 300 Mg Capsule, 300 MG PO BID Prescribed by: THUAN CARDENAS on 05/20/19 1047 Clopidogrel Bisulfate 75 Mg Tablet, 75 MG PO DAILY, (Reported) Doxazosin Mesylate 2 Mg Tablet, 2 MG PO HS, (Reported) Lisinopril 20 Mg Tablet, 20 MG PO BID, (Reported) Lovastatin 20 Mg Tablet, 20 MG PO HS, (Reported) Metformin HCl 500 Mg Tablet, 500 MG PO BID WITH MEALS, (Reported) Multivitamin 1 Each Tablet, 1 EACH PO DAILY, (Reported) Nifedipine 60 Mg Tab.er.24, 60 MG PO DAILY, (Reported) [place]-3S/Dha/Epa/Fish Oil 1 Each Capsule, 1,200 MG PO BID, (Reported) Quetiapine Fumarate 200 Mg Tablet, 200 MG PO HS, (Reported) Tramadol HCl 50 Mg Tablet, 50 MG PO Q12H PRN for PAIN-MILD TO MODERATE Prescribed by: LARRY NO on 02/27/18 1231 Patient Home Medication List Home Medication List Reviewed: Yes Review of Systems Review of Systems Constitutional: no symptoms reported Respiratory: no symptoms reported Cardiovascular: no symptoms reported Gastrointestinal: see HPI Genitourinary: see HPI Skin: no symptoms reported Past Xnnlffp-Dqajvz-Ncsngr Hx Past Med/Social Hx: Reviewed Nursing Past Med/Soc Hx Patient Social History Alcohol Use: Denies Use Recreational Drug Use: No Smoking Status: Never a Smoker Former Smoker, Quit: Apr 16, 1976 2nd Hand Smoke Exposure: No Recent Foreign Travel: No Contact w/Someone Who Travel: No Recent Infectious Disease Expo: No Recent Hopitalizations: No Immunizations Up To Date Tetanus Booster (TDap): More than 5yrs Date of Pneumonia Vaccine: Apr 16, 2012 Date of Influenza Vaccine: Nov 19, 2017 Seasonal Allergies Seasonal Allergies: No Past Medical History Surgeries: Yes ( tongue surgery, cyst on spine tailbone, SKIN CA) Thyroidectomy Respiratory: No Cardiac: Yes (STENTS X4, LAST ONE 2013, "ABOUT 8" HEART ATTACKS PRIOR TO STENTS ) Heart Attack, High Cholesterol, Hypertension Neurological: No Sexually Transmitted Disease: No HIV/AIDS: No Genitourinary: No Gastrointestinal: No Musculoskeletal: Yes Arthritis Endocrine: Yes Diabetes, Non-Insulin dep HEENT: Yes (GLASSES) Loss of Vision: Bilateral Hearing Impairment: Denies Cancer: Yes (TONGUE) Prostate, Skin Did You Recieve Any Treatments: Yes What Type of Treatment Did You: Radiation, Surgical Intervention Psychosocial: No Sleep Difficulties Integumentary: No Blood Disorders: No Adverse Reaction/Blood Tranf: No (N/A) Family Medical History Reviewed Nursing Family Hx Physical Exam Vital Signs Vital Signs - First Documented 05/22/19 12:08 Temp 36.4 Pulse 83 Resp 17 B/P (MAP) 162/80 (107) Pulse Ox 99 O2 Delivery Room Air Capillary Refill : Less Than 3 Seconds Height, Weight, BMI Height: 5'8.00" Weight: 220lbs. 0.0oz. 99.785000gh; 32.00 BMI Method:Stated General Appearance: WD/WN, no apparent distress Cardiovascular: regular rate, rhythm, no murmur Respiratory: lungs clear, normal breath sounds Gastrointestinal: non tender, soft, no organomegaly, no pulsatile mass Genital/Rectal: other (poorly draining urinary catheter with occasional clots. Unable to flush and during.) Neurologic/Psychiatric: alert, oriented x 3 Progress/Results/Core Measures Suspected Sepsis Recent Fever Within 48 Hours: No Infection Criteria Present: None New/Unexplained Altered Menta: No Sepsis Screen: No Definite Risk SIRS Temperature: Pulse: 83 Respiratory Rate: 17 Blood Pressure 162 /80 Mean: 107 Results/Orders My Orders Orders - JENNIFER HALL MD Catheter(Urinary) Insert & Ass 03,15 (05/22/19 13:22) Lidocaine 2% (Urojet) (Xylocaine Urojet) (05/22/19 13:28) Vital Signs/I&O 05/22/19 12:08 Temp 36.4 Pulse 83 Resp 17 B/P (MAP) 162/80 (107) Pulse Ox 99 O2 Delivery Room Air Capillary Refill : Less Than 3 Seconds Blood Pressure Mean: 107 Progress Note : Progress Note Seen and evaluated. Nurse attempted to flush catheter to clear clots. She is able to flush but unable to draw back. Multiple attempts at this for done and failed. Ultimately we decided to replace the catheter. We were trying for something bigger than a 20 but are unable to obtain one. We did replace the Ramirez catheter with a 20 Italian done by me. There was noted to have clot at the tip. Several clots passed. These are old. Urine is not bloody. New 20 Italian catheter placed we are able to get that flowing but does seem to be a bit positional and that may be related to previous TURP procedure. Ultimately we were able to get 350 mL of urine drainage with placement. Patient feels better. He is on antibiotics we will continue that. Discharged home with return precautions. Patient verbalize understanding instructions and agreement with plan. Departure Impression Primary Impression: Urinary retention Disposition: 01 HOME, SELF-CARE Condition: Stable Departure-Patient Inst. Decision time for Depature: 13:51 Referrals: DINO BROWN DO (PCP/Family) Primary Care Physician Patient Instructions: Ramirez Catheter, Male, Urinary Retention (DC) Add. Discharge Instructions: All discharge instructions reviewed with patient and/or family. Voiced understanding. Continue to drink an adequate amount of fluids and take medications as directed. Follow-up with your urologist for recheck and further evaluation. Keep Ramirez catheter in place. Return for worse pain, swelling, lower abdominal pain, fever, nausea, vomiting or other concerns as needed. JENNIFER HALL MD May 22, 2019 13:52
[2019-05-22 14:04] VITALS: BP 154/64
== END 2019-05-22 14:04 | disposition home or self-care (01) ==
LOC: EDUNIT# 11:56 → ER 11:58
DX: T83.83XA Hemorrhage due to genitourinary prosthetic devices, implants and grafts, initial encounter (principal); R33.9 Retention of urine, unspecified; I25.2 Old myocardial infarction; E78.00 Pure hypercholesterolemia, unspecified; I10 Essential (primary) hypertension; E11.9 Type 2 diabetes mellitus without complications; Z79.84 Long term (current) use of oral hypoglycemic drugs
CPT/HCPCS: 51702

== ENCOUNTER 2019-05-24 11:02 | Emergency (ER) | payer MEDICARE ==
[~2019-05-24] VITALS: Ht 172.7 cm; Wt 97.7 kg
[2019-05-24] MEDS ORDERED: LIDOCAINE UROJET 2% GEL 10 ML PKG ONE (11:29)
[2019-05-24] MEDS ORDERED: PHEN-639 PO (12:06)
--- NOTE | 2019-05-24 12:06 | ED GU-Male ---
General Chief Complaint: - Urinary Stated Complaint: CATH PROBLEMS Nursing Triage Note: AMB TO ED WITH NAJERA IN PLACE REPORTS STUNNER ANIMAL WAS SITTING IN CHAIR WENT TO GET UP AND URINE LEAKED AROUND SITE. URINE NOTED IN NAJERA BAG History of Present Illness Date Seen by Provider: May 24, 2019 Time Seen by Provider: 11:10 Initial Comments 73 year old male with recurrent catheter problems since TURP at . He is on Plavix. Reports catheter was draining, with no leakage through the night. He sat in his chair this morning for 1-2 hours, when he stood up, he got leakage from around the catheter. Since then, he hasn't noted any urine in bag. No abdominal pain or bladder distention. Timing/Duration: this morning Associated Symptoms: denies symptoms Allergies and Home Medications Allergies Coded Allergies: No Known Drug Allergies (Unverified , 02/22/18) Home Medications Aspirin 81 Mg Tablet.dr, 81 MG PO DAILY, (Reported) Atenolol 50 Mg Tablet, 100 MG PO BID, (Reported) TAKE 2 (50MG) TABS Cefdinir 300 Mg Capsule, 300 MG PO BID Prescribed by: THUAN CARDENAS on 05/20/19 1047 Clopidogrel Bisulfate 75 Mg Tablet, 75 MG PO DAILY, (Reported) Doxazosin Mesylate 2 Mg Tablet, 2 MG PO HS, (Reported) Lisinopril 20 Mg Tablet, 20 MG PO BID, (Reported) Lovastatin 20 Mg Tablet, 20 MG PO HS, (Reported) Metformin HCl 500 Mg Tablet, 500 MG PO BID WITH MEALS, (Reported) Multivitamin 1 Each Tablet, 1 EACH PO DAILY, (Reported) Nifedipine 60 Mg Tab.er.24, 60 MG PO DAILY, (Reported) [place]-3S/Dha/Epa/Fish Oil 1 Each Capsule, 1,200 MG PO BID, (Reported) Phenazopyridine HCl 100 Mg Tablet, 100 MG PO Q8H PRN for SPASMS Prescribed by: MEG BREAUX on 05/24/19 1206 Quetiapine Fumarate 200 Mg Tablet, 200 MG PO HS, (Reported) Tramadol HCl 50 Mg Tablet, 50 MG PO Q12H PRN for PAIN-MILD TO MODERATE Prescribed by: LARRY NO on 02/27/18 1231 Patient Home Medication List Home Medication List Reviewed: Yes Review of Systems Review of Systems Constitutional: no symptoms reported, see HPI Genitourinary: see HPI, incontinence (around catheter) All Other Systemes Reviewed Negative Unless Noted: Yes Past Wygwvrw-Rnvuys-Uzvbnj Hx Past Med/Social Hx: Reviewed Nursing Past Med/Soc Hx Patient Social History Alcohol Use: Denies Use Recreational Drug Use: No Smoking Status: Never a Smoker Former Smoker, Quit: Apr 16, 1976 2nd Hand Smoke Exposure: No Recent Foreign Travel: No Contact w/Someone Who Travel: No Recent Infectious Disease Expo: No Recent Hopitalizations: No Immunizations Up To Date Tetanus Booster (TDap): More than 5yrs Date of Pneumonia Vaccine: Apr 16, 2012 Date of Influenza Vaccine: Nov 19, 2017 Seasonal Allergies Seasonal Allergies: No Past Medical History Surgeries: Yes ( tongue surgery, cyst on spine tailbone, SKIN CA) Thyroidectomy Respiratory: No Cardiac: Yes (STENTS X4, LAST ONE 2013, "ABOUT 8" HEART ATTACKS PRIOR TO STENTS ) Heart Attack, High Cholesterol, Hypertension Neurological: No Sexually Transmitted Disease: No HIV/AIDS: No Genitourinary: No Gastrointestinal: No Musculoskeletal: Yes Arthritis Endocrine: Yes Diabetes, Non-Insulin dep HEENT: Yes (GLASSES) Loss of Vision: Bilateral Hearing Impairment: Denies Cancer: Yes (TONGUE) Prostate, Skin Did You Recieve Any Treatments: Yes What Type of Treatment Did You: Radiation, Surgical Intervention Psychosocial: No Sleep Difficulties Integumentary: No Blood Disorders: No Adverse Reaction/Blood Tranf: No (N/A) Physical Exam Vital Signs Vital Signs - First Documented 05/24/19 05/24/19 11:07 12:11 Temp 36.6 Pulse 75 Resp 18 B/P (MAP) 119/61 (80) Pulse Ox 96 O2 Delivery Room Air Capillary Refill : NONE Height, Weight, BMI Height: 5'8.00" Weight: 220lbs. 0.0oz. 99.365347ur; 32.00 BMI Method:Stated General Appearance: WD/WN, no apparent distress Cardiovascular: normal peripheral pulses, regular rate, rhythm Respiratory: chest non-tender, lungs clear, normal breath sounds Gastrointestinal: normal bowel sounds, non tender, soft; No tenderness; other (no bladder distention) Neurologic/Psychiatric: no motor/sensory deficits, alert, normal mood/affect, oriented x 3 Progress/Results/Core Measures Suspected Sepsis Recent Fever Within 48 Hours: No Infection Criteria Present: None New/Unexplained Altered Menta: No Sepsis Screen: No Definite Risk SIRS Temperature: Pulse: 75 Respiratory Rate: 18 Blood Pressure 119 /61 Mean: 80 Results/Orders My Orders Orders - MEG BREAUX Lidocaine 2% (Urojet) (Xylocaine Urojet) (05/24/19 11:29) Vital Signs/I&O 05/24/19 05/24/19 11:07 12:11 Temp 36.6 Pulse 75 72 Resp 18 18 B/P (MAP) 119/61 (80) 146/61 Pulse Ox 96 98 O2 Delivery Room Air Room Air Capillary Refill : NONE Blood Pressure Mean: 80 Progress Note : Time: 11:10 Progress Note Patient and seen and evaluated. Attempted to irrigate catheter, no return. Deflated balloon and small amount of urine return. Removed 20F catheter, clots noted at tip. Lidocaine gel, then inserted new 20F catheter, immediate return of urine, dark blood tinged. Irrigated and aspirated several small clots. Connected to bag and urine return, no further clots. No leakage at penis tip. Patient had no complaints. 1200 Najera continues to drain urine, no leakage. Discharge instructions and return precautions reviewed. All questions answered. Dr. Mckeon spoke to patient, if this continues to be a problem, may require admission for CBI. Departure Impression Primary Impression: Najera catheter problem Qualified Codes: T83.9XXD - Unspecified complication of genitourinary prosthetic device, implant and graft, subsequent encounter Disposition: 01 HOME, SELF-CARE Condition: Improved Departure-Patient Inst. Decision time for Depature: 12:00 Referrals: DINO BROWN DO (PCP/Family) Primary Care Physician Patient Instructions: How to Care for Your Najera Catheter, Male Add. Discharge Instructions: Continue to take your antibiotic. Use the pyridium for bladder spasms, the pyridium will turn your urine brown. If you notice urine leakage, monitor for 1-2 hours, if continues, then return to ER. Keep appointment with surgeon at on . Return to Emergency Dept for new, urgent health care needs. All discharge instructions reviewed with patient and/or family. Voiced understan trent. Scripts Phenazopyridine HCl (Pyridium) 100 Mg Tablet 100 MG PO Q8H PRN for SPASMS, #15 TAB 0 Refills Prov: EMG BREAUX 4/11/20 Copy Copies To 1: DINO BROWN AMY ARNP May 24, 2019 12:06
[2019-05-24 12:11] VITALS: BP 146/61
== END 2019-05-24 12:16 | disposition home or self-care (01) ==
LOC: EDUNIT# 11:02 → ER 11:03
DX: T83.89XA Other specified complication of genitourinary prosthetic devices, implants and grafts, initial encounter (principal); I10 Essential (primary) hypertension; I25.2 Old myocardial infarction; Z95.5 Presence of coronary angioplasty implant and graft; E11.9 Type 2 diabetes mellitus without complications; Z79.84 Long term (current) use of oral hypoglycemic drugs; Z85.810 Personal history of malignant neoplasm of tongue; Z85.46 Personal history of malignant neoplasm of prostate; Z87.891 Personal history of nicotine dependence; E78.00 Pure hypercholesterolemia, unspecified
CPT/HCPCS: 51702

== ENCOUNTER 2019-05-25 09:30 | Emergency (ER) | payer MEDICARE ==
[~2019-05-25] VITALS: Ht 172.7 cm; Wt 97.7 kg
[~2019-05-25 09:30] MED LIST changes: +PHEN-639 PO
[2019-05-25 09:36] VITALS: BP 140/76
--- NOTE | 2019-05-25 09:49 | ED GU-Male ---
General Stated Complaint: CATHETER PROBLEMS Source: patient Exam Limitations: no limitations History of Present Illness Date Seen by Provider: May 25, 2019 Time Seen by Provider: 09:30 Initial Comments Patient presents ER by private conveyance with chief complaint of urine flowing around the Moncada catheter starting this morning. He's having no pressure pain fever or passing of any blood clots that he has seen. He has had dark red urine. He's having no nausea vomiting diarrhea. Dr. Francois is the urologist to take care of him at . 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 He's had to have the Moncada catheter replaced twice since then. He says he hasn't appointment later this week with the urologist and wonders if he should just have the Moncada catheter taken out entirely. He is on Plavix and aspirin. Allergies and Home Medications Allergies Coded Allergies: No Known Drug Allergies (Unverified , 02/22/18) Home Medications Aspirin 81 Mg Tablet.dr, 81 MG PO DAILY, (Reported) Atenolol 50 Mg Tablet, 100 MG PO BID, (Reported) TAKE 2 (50MG) TABS Cefdinir 300 Mg Capsule, 300 MG PO BID Prescribed by: THUAN CARDENAS on 05/20/19 1047 Clopidogrel Bisulfate 75 Mg Tablet, 75 MG PO DAILY, (Reported) Doxazosin Mesylate 2 Mg Tablet, 2 MG PO HS, (Reported) Lisinopril 20 Mg Tablet, 20 MG PO BID, (Reported) Lovastatin 20 Mg Tablet, 20 MG PO HS, (Reported) Metformin HCl 500 Mg Tablet, 500 MG PO BID WITH MEALS, (Reported) Multivitamin 1 Each Tablet, 1 EACH PO DAILY, (Reported) Nifedipine 60 Mg Tab.er.24, 60 MG PO DAILY, (Reported) [place]-3S/Dha/Epa/Fish Oil 1 Each Capsule, 1,200 MG PO BID, (Reported) Phenazopyridine HCl 100 Mg Tablet, 100 MG PO Q8H PRN for SPASMS Prescribed by: MEG BREAUX on 05/24/19 1206 Quetiapine Fumarate 200 Mg Tablet, 200 MG PO HS, (Reported) Tramadol HCl 50 Mg Tablet, 50 MG PO Q12H PRN for PAIN-MILD TO MODERATE Prescribed by: LARRY NO on 02/27/18 1231 Patient Home Medication List Home Medication List Reviewed: Yes Review of Systems Review of Systems Constitutional: No chills, No diaphoresis EENTM: No ear discharge, No hearing loss Respiratory: No cough, No short of breath Cardiovascular: No edema Gastrointestinal: No abdominal pain, No constipation, No diarrhea, No nausea Genitourinary: see HPI; denies dysuria; hematuria Musculoskeletal: No back pain, No joint pain All Other Systemes Reviewed Negative Unless Noted: Yes Past Czsybwx-Ibhidl-Cnmqxj Hx Patient Social History Alcohol Use: Denies Use Recreational Drug Use: No Smoking Status: Former Smoker Former Smoker, Quit: Apr 16, 1976 2nd Hand Smoke Exposure: No Recent Foreign Travel: No Contact w/Someone Who Travel: No Recent Hopitalizations: No Immunizations Up To Date Tetanus Booster (TDap): More than 5yrs Date of Pneumonia Vaccine: Apr 16, 2012 Date of Influenza Vaccine: Nov 19, 2017 Seasonal Allergies Seasonal Allergies: No Past Medical History Surgeries: Yes ( tongue surgery, cyst on spine tailbone, SKIN CA) Thyroidectomy Respiratory: No Cardiac: Yes (STENTS X4, LAST ONE 2013, "ABOUT 8" HEART ATTACKS PRIOR TO STENTS ) Heart Attack, High Cholesterol, Hypertension Neurological: No Sexually Transmitted Disease: No HIV/AIDS: No Genitourinary: No Gastrointestinal: No Musculoskeletal: Yes Arthritis Endocrine: Yes Diabetes, Non-Insulin dep HEENT: Yes (GLASSES) Loss of Vision: Bilateral Hearing Impairment: Denies Cancer: Yes (TONGUE) Prostate, Skin Did You Recieve Any Treatments: Yes What Type of Treatment Did You: Radiation, Surgical Intervention Psychosocial: No Sleep Difficulties Integumentary: No Blood Disorders: No Adverse Reaction/Blood Tranf: No (N/A) Physical Exam Vital Signs Vital Signs - First Documented 05/25/19 09:36 Temp 36.7 Pulse 79 Resp 20 B/P (MAP) 140/76 (97) Pulse Ox 98 O2 Delivery Room Air Capillary Refill : Height, Weight, BMI Height: 5'8.00" Weight: 220lbs. 0.0oz. [id number]; 32.00 BMI Method:Stated General Appearance: WD/WN, no apparent distress HEENT: PERRL/EOMI, pharynx normal Cardiovascular: normal peripheral pulses, regular rate, rhythm Respiratory: no respiratory distress, no accessory muscle use Gastrointestinal: soft, tenderness (mild tenderness suprapubic) Neurologic/Psychiatric: alert, normal mood/affect, oriented x 3 Skin: normal color, warm/dry Progress/Results/Core Measures Suspected Sepsis SIRS Temperature: Pulse: Respiratory Rate: Blood Pressure / Mean: Results/Orders Lab Results Laboratory Tests Test 05/25/19 09:50 Range/Units My Orders Orders - MADAY BAXTER Ua Culture If Indicated (05/25/19 09:42) Vital Signs/I&O 05/25/19 09:36 Temp 36.7 Pulse 79 Resp 20 B/P (MAP) 140/76 (97) Pulse Ox 98 O2 Delivery Room Air Capillary Refill : Progress Note : Time: 09:52 Progress Note Nursing staff was able to flush about 100 cc of saline and then get about 35 cc back out. We have put a call into and see urology to see if they want to just leave the Moncada catheter out or if they would like us to replace it. Consults Consults : Consults Notes Dr Slaughter (sp?) Urology on-call for [facility] called us back and we discussed the case including the urinary retention and Moncada placement on May 19. He feels that the spasming bladder is the source of the patient's leaking around the catheter. Since we flushed it and got some urine back he does not feel it's obstructed. He recommends no anticholinergics at this time. He says leave the Moncada catheter in place use briefs and follow-up on Sunday and they will do some procedures prior to removing the Moncada catheter. Departure Impression Primary Impression: Obstruction of Moncada catheter Qualified Codes: T83.091A - Other mechanical complication of indwelling urethral catheter, initial encounter Disposition: HOME, SELF-CARE Condition: Improved Departure-Patient Inst. Decision time for Depature: 10:19 Referrals: DINO BROWN DO (PCP/Family) Primary Care Physician Patient Instructions: Urinary Retention (DC) Add. Discharge Instructions: Continue to drink plenty of fluids. Keep your follow-up appointment with the urologist. Return to the ER if you are unable to produce urine or experiencing fever, significant pain or other worrisome symptoms. Stop taking the Pyridium. MADAY BAXTER May 25, 2019 09:49
== END 2019-05-25 10:26 | disposition home or self-care (01) ==
LOC: EDUNIT# 09:30 → ER 09:31
DX: T83.091A Other mechanical complication of indwelling urethral catheter, initial encounter (principal); I10 Essential (primary) hypertension; E11.9 Type 2 diabetes mellitus without complications; I25.2 Old myocardial infarction; E78.00 Pure hypercholesterolemia, unspecified; Z85.828 Personal history of other malignant neoplasm of skin; Z85.46 Personal history of malignant neoplasm of prostate; Z79.82 Long term (current) use of aspirin; Z79.02 Long term (current) use of antithrombotics/antiplatelets; Z79.84 Long term (current) use of oral hypoglycemic drugs; Z87.891 Personal history of nicotine dependence
CPT/HCPCS: 99282

== ENCOUNTER 2019-05-26 12:02 | Emergency (ER) | payer MEDICARE ==
[~2019-05-26] VITALS: Ht 172.7 cm; Wt 97.5 kg
--- NOTE | 2019-05-26 13:09 | ED GU-Male ---
General Chief Complaint: Catheter/Drain/Tube Problems Stated Complaint: TROUBLE URINATING Nursing Triage Note: Pt reports being sent to ED by urologist to have urinary catheter replaced. Pt reports very little ouput in urinary catheter, but pt reports leakeage around penis with urination. Pt denies pain. History of Present Illness Date Seen by Provider: May 26, 2019 Time Seen by Provider: 12:15 Initial Comments 73 year old male presents for continued urinary obstruction of his catheter. It was irrigated and changed yesterday, this is his 6th visit with multiple irrigations and catheter changes. He reports emptying approximately 150 ml of urine this morning, but continued leakage of urine around catheter. He is wearing a Depends brief. He spoke to the surgeon this am at , they recommended to return to ED for catheter change. Patient denies abdominal pain. He is requesting to try and leave the catheter out. He has an appt tomorrow at . Timing/Duration: this morning Severity/Quality: mild Radiation: none Associated Symptoms: denies symptoms Allergies and Home Medications Allergies Coded Allergies: No Known Drug Allergies (Unverified , 02/22/18) Home Medications Aspirin 81 Mg Tablet.dr, 81 MG PO DAILY, (Reported) Atenolol 50 Mg Tablet, 100 MG PO BID, (Reported) TAKE 2 (50MG) TABS Cefdinir 300 Mg Capsule, 300 MG PO BID Prescribed by: THUAN CARDENAS on 05/20/19 1047 Clopidogrel Bisulfate 75 Mg Tablet, 75 MG PO DAILY, (Reported) Doxazosin Mesylate 2 Mg Tablet, 2 MG PO HS, (Reported) Lisinopril 20 Mg Tablet, 20 MG PO BID, (Reported) Lovastatin 20 Mg Tablet, 20 MG PO HS, (Reported) Metformin HCl 500 Mg Tablet, 500 MG PO BID WITH MEALS, (Reported) Multivitamin 1 Each Tablet, 1 EACH PO DAILY, (Reported) Nifedipine 60 Mg Tab.er.24, 60 MG PO DAILY, (Reported) [place]-3S/Dha/Epa/Fish Oil 1 Each Capsule, 1,200 MG PO BID, (Reported) Phenazopyridine HCl 100 Mg Tablet, 100 MG PO Q8H PRN for SPASMS Prescribed by: MEG BREAUX on 05/24/19 1206 Quetiapine Fumarate 200 Mg Tablet, 200 MG PO HS, (Reported) Tramadol HCl 50 Mg Tablet, 50 MG PO Q12H PRN for PAIN-MILD TO MODERATE Prescribed by: LARRY NO on 02/27/18 1231 Patient Home Medication List Home Medication List Reviewed: Yes Review of Systems Review of Systems Constitutional: no symptoms reported, see HPI Genitourinary: see HPI, other (catheter obstruction) All Other Systemes Reviewed Negative Unless Noted: Yes Past Najvukj-Ijuwnb-Afgcct Hx Past Med/Social Hx: Reviewed Nursing Past Med/Soc Hx Patient Social History Alcohol Use: Occasionally Uses Recreational Drug Use: No Smoking Status: Former Smoker Former Smoker, Quit: Apr 16, 1976 2nd Hand Smoke Exposure: No Recent Foreign Travel: No Contact w/Someone Who Travel: No Recent Infectious Disease Expo: No Recent Hopitalizations: No Immunizations Up To Date Tetanus Booster (TDap): More than 5yrs PED Vaccines UTD: Yes Date of Pneumonia Vaccine: Apr 16, 2012 Date of Influenza Vaccine: Nov 19, 2017 Seasonal Allergies Seasonal Allergies: No Past Medical History Surgeries: Yes ( tongue surgery, cyst on spine tailbone, SKIN CA) Thyroidectomy Respiratory: No Cardiac: Yes (STENTS X4, LAST ONE 2013, "ABOUT 8" HEART ATTACKS PRIOR TO STENTS ) Heart Attack, High Cholesterol, Hypertension Neurological: No Sexually Transmitted Disease: No HIV/AIDS: No Genitourinary: No Gastrointestinal: No Musculoskeletal: Yes Arthritis Endocrine: Yes Diabetes, Non-Insulin dep HEENT: Yes (GLASSES) Loss of Vision: Bilateral Hearing Impairment: Denies Cancer: Yes (TONGUE) Prostate, Skin Did You Recieve Any Treatments: Yes What Type of Treatment Did You: Radiation, Surgical Intervention Psychosocial: No Sleep Difficulties Integumentary: No Blood Disorders: No Adverse Reaction/Blood Tranf: No (N/A) Physical Exam Vital Signs Vital Signs - First Documented 05/26/19 12:15 Temp 36.4 Pulse 85 Resp 16 B/P (MAP) 189/86 (120) Pulse Ox 99 O2 Delivery Room Air Capillary Refill : Less Than 3 Seconds Height, Weight, BMI Height: 5'8.00" Weight: 220lbs. 0.0oz. [id number]; 32.00 BMI Method:Stated General Appearance: WD/WN, no apparent distress Cardiovascular: normal peripheral pulses, regular rate, rhythm Respiratory: chest non-tender, lungs clear, normal breath sounds Neurologic/Psychiatric: no motor/sensory deficits, alert, normal mood/affect, oriented x 3 Progress/Results/Core Measures Suspected Sepsis Recent Fever Within 48 Hours: No Infection Criteria Present: None New/Unexplained Altered Menta: No Sepsis Screen: No Definite Risk SIRS Temperature: Pulse: 85 Respiratory Rate: 16 Blood Pressure 189 /86 Mean: 120 Results/Orders Vital Signs/I&O 05/26/19 12:15 Temp 36.4 Pulse 85 Resp 16 B/P (MAP) 189/86 (120) Pulse Ox 99 O2 Delivery Room Air Capillary Refill : Less Than 3 Seconds Blood Pressure Mean: 120 Progress Note : Time: 12:15 Progress Note Patient seen and evaluated. When catheter balloon deflated, good urine flow. Irrigated bladder with 50 ml of sterile saline, aspirated 10 ml dark yellow to red urine, no clots. Catheter removed, large clot passed at tip. Patient have urine leakage, he is able to stop the flow. Will monitor depend and see how patient does without catheter in place. Call placed to Dr. Sahni at . Awaiting return call. Will wait 15-20 min and get bladder scan. 1300 Bladder scan shows 0 urine. 1330 Patient having urine output, can start and stop stream. Depends in place. 1345 [address]oke to Nurse at Dr. Sahni's office, she will reach out the urology residents for plan of care. Expressed that patient would prefer to have catheter left out 1415 Spoke to Urology Resident, ok to leave catheter out. Discharge instructions and return precautions reviewed with the patient. All questions answered. Departure Impression Primary Impression: Urinary obstruction Disposition: HOME, SELF-CARE Condition: Improved Departure-Patient Inst. Referrals: DINO BROWN DO (PCP/Family) Primary Care Physician Patient Instructions: Urinary Retention (DC) Add. Discharge Instructions: Continue to use Depends. Increase water intake. Keep your appt with surgeon at on . Return to ER for new, urgent health care needs. All discharge instructions reviewed with patient and/or family. Voiced understanding. MEG BREAUX May 26, 2019 13:09
--- NOTE | 2019-05-26 13:45 | NUR ---
Pt resting and watching television. Pt denies needs at this time. Will continue to monitor.
[2019-05-26 14:15] VITALS: BP 189/86
== END 2019-05-26 14:18 | disposition home or self-care (01) ==
LOC: EDUNIT# 12:02 → ER 12:04
DX: T83.89XA Other specified complication of genitourinary prosthetic devices, implants and grafts, initial encounter (principal); N13.9 Obstructive and reflux uropathy, unspecified; I10 Essential (primary) hypertension; E11.9 Type 2 diabetes mellitus without complications; E78.00 Pure hypercholesterolemia, unspecified; I25.2 Old myocardial infarction; Z79.84 Long term (current) use of oral hypoglycemic drugs; Z85.810 Personal history of malignant neoplasm of tongue; Z95.5 Presence of coronary angioplasty implant and graft; Z85.46 Personal history of malignant neoplasm of prostate; Z87.891 Personal history of nicotine dependence
CPT/HCPCS: 99281

== ENCOUNTER 2019-06-05 13:36 | Emergency (ER) | payer MEDICARE ==
[~2019-06-05] VITALS: Ht 175.3 cm; Wt 97.5 kg
[2019-06-05] MEDS ORDERED: LIDOCAINE UROJET 2% GEL 10 ML PKG ONE (13:38)
--- NOTE | 2019-06-05 14:14 | ED GU-Female ---
General Chief Complaint: - Urinary Stated Complaint: TROUBLE URINATING Source: patient Exam Limitations: no limitations History of Present Illness Date Seen by Provider: Jun 05, 2019 Time Seen by Provider: 13:45 Initial Comments To ER with inability to urinate and sensation of a full bladder. Recently had Moncada catheter removed, had TURP at [facility] in April. Timing/Duration: constant, getting worse Severity/Quality: moderate Location: suprapubic Radiation: none Activities at Onset: none Prior Genitourinary Problems: none Associated Symptoms: abdominal pain Allergies and Home Medications Allergies Coded Allergies: No Known Drug Allergies (Unverified , 02/22/18) Home Medications Aspirin 81 Mg Tablet.dr, 81 MG PO DAILY, (Reported) Atenolol 50 Mg Tablet, 100 MG PO BID, (Reported) TAKE 2 (50MG) TABS Cefdinir 300 Mg Capsule, 300 MG PO BID Prescribed by: THUAN CARDENAS on 05/20/19 1047 Clopidogrel Bisulfate 75 Mg Tablet, 75 MG PO DAILY, (Reported) Doxazosin Mesylate 2 Mg Tablet, 2 MG PO HS, (Reported) Lisinopril 20 Mg Tablet, 20 MG PO BID, (Reported) Lovastatin 20 Mg Tablet, 20 MG PO HS, (Reported) Metformin HCl 500 Mg Tablet, 500 MG PO BID WITH MEALS, (Reported) Multivitamin 1 Each Tablet, 1 EACH PO DAILY, (Reported) Nifedipine 60 Mg Tab.er.24, 60 MG PO DAILY, (Reported) [place]-3S/Dha/Epa/Fish Oil 1 Each Capsule, 1,200 MG PO BID, (Reported) Phenazopyridine HCl 100 Mg Tablet, 100 MG PO Q8H PRN for SPASMS Prescribed by: MEG BREAUX on 05/24/19 1206 Quetiapine Fumarate 200 Mg Tablet, 200 MG PO HS, (Reported) Tramadol HCl 50 Mg Tablet, 50 MG PO Q12H PRN for PAIN-MILD TO MODERATE Prescribed by: LARRY NO on 02/27/18 1231 Patient Home Medication List Home Medication List Reviewed: Yes Review of Systems Review of Systems Constitutional: see HPI EENTM: see HPI Respiratory: no symptoms reported Cardiovascular: no symptoms reported Genitourinary: see HPI Musculoskeletal: no symptoms reported Skin: no symptoms reported Psychiatric/Neurological: No Symptoms Reported Endocrine: No Symptoms Reported Past Keirruq-Jcpnhx-Qkgcea Hx Patient Social History Former Smoker, Quit: Apr 16, 1976 2nd Hand Smoke Exposure: No Recent Foreign Travel: No Contact w/Someone Who Travel: No Recent Hopitalizations: No Immunizations Up To Date Tetanus Booster (TDap): More than 5yrs PED Vaccines UTD: Yes Date of Pneumonia Vaccine: Apr 16, 2012 Date of Influenza Vaccine: Nov 19, 2017 Seasonal Allergies Seasonal Allergies: No Past Medical History Surgeries: Yes ( tongue surgery, cyst on spine tailbone, SKIN CA) Thyroidectomy Respiratory: No Cardiac: Yes (STENTS X4, LAST ONE 2013, "ABOUT 8" HEART ATTACKS PRIOR TO STENTS ) Heart Attack, High Cholesterol, Hypertension Neurological: No Sexually Transmitted Disease: No HIV/AIDS: No Genitourinary: No Gastrointestinal: No Musculoskeletal: Yes Arthritis Endocrine: Yes Diabetes, Non-Insulin dep HEENT: Yes (GLASSES) Loss of Vision: Bilateral Hearing Impairment: Denies Cancer: Yes (TONGUE) Prostate, Skin Did You Recieve Any Treatments: Yes What Type of Treatment Did You: Radiation, Surgical Intervention Psychosocial: No Sleep Difficulties Integumentary: No Blood Disorders: No Adverse Reaction/Blood Tranf: No (N/A) Physical Exam Vital Signs Vital Signs - First Documented 06/05/19 13:41 Temp 36.5 Pulse 102 Resp 20 B/P (MAP) 128/72 (90) Pulse Ox 99 O2 Delivery Room Air Capillary Refill : Height, Weight, BMI Height: 5'8.00" Weight: 220lbs. 0.0oz. 99.330361cx; 32.00 BMI Method:Stated General Appearance: WD/WN, no apparent distress Neck: non-tender, full range of motion Respiratory: no respiratory distress, no accessory muscle use Gastrointestinal: normal bowel sounds, soft, tenderness (suprapubic tenderness and fullness) Neurologic/Psychiatric: alert, normal mood/affect, oriented x 3 Skin: normal color, warm/dry Progress/Results/Core Measures Suspected Sepsis SIRS Temperature: Pulse: Respiratory Rate: Laboratory Tests 06/05/19 15:00: White Blood Count 10.2 Blood Pressure / Mean: Laboratory Tests 06/05/19 15:00: Creatinine 0.99, Platelet Count 288 Results/Orders Lab Results Laboratory Tests Test 06/05/19 15:00 Range/Units White Blood Count 10.2 4.3-11.0 10^3/uL Red Blood Count 2.97 L 4.35-5.85 10^6/uL Hemoglobin 8.3 L 13.3-17.7 G/DL Hematocrit 26 L 40-54 % Mean Corpuscular Volume 87 80-99 FL Mean Corpuscular Hemoglobin 28 25-34 PG Mean Corpuscular Hemoglobin Concent 32 32-36 G/DL Red Cell Distribution Width 13.9 10.0-14.5 % Platelet Count 288 130-400 10^3/uL Mean Platelet Volume 9.7 7.4-10.4 FL Neutrophils (%) (Auto) 83 H 42-75 % Lymphocytes (%) (Auto) 9 L 12-44 % Monocytes (%) (Auto) 8 0-12 % Eosinophils (%) (Auto) 0 0-10 % Basophils (%) (Auto) 0 0-10 % Neutrophils # (Auto) 8.4 H 1.8-7.8 X 10^3 Lymphocytes # (Auto) 0.9 L 1.0-4.0 X 10^3 Monocytes # (Auto) 0.8 0.0-1.0 X 10^3 Eosinophils # (Auto) 0.0 0.0-0.3 10^3/uL Basophils # (Auto) 0.0 0.0-0.1 10^3/uL Sodium Level 137 135-145 MMOL/L Potassium Level 4.5 3.6-5.0 MMOL/L Chloride Level 105 98-107 MMOL/L Carbon Dioxide Level 21 21-32 MMOL/L Anion Gap 11 5-14 MMOL/L Blood Urea Nitrogen 12 7-18 MG/DL Creatinine 0.99 0.60-1.30 MG/DL Estimat Glomerular Filtration Rate > 60 BUN/Creatinine Ratio 12 Glucose Level 130 H 70-105 MG/DL Calcium Level 8.8 8.5-10.1 MG/DL My Orders Orders - THUAN CARDENAS APRN Lidocaine 2% (Urojet) (Xylocaine Urojet) (06/05/19 13:38) Continuous Bladder Irrigation (06/05/19 14:11) Levofloxacin Tablet (Levaquin Tablet) (06/05/19 14:15) Cbc With Automated Diff (06/05/19 14:51) Basic Metabolic Panel (06/05/19 14:51) Vital Signs/I&O 06/05/19 13:41 Temp 36.5 Pulse 102 Resp 20 B/P (MAP) 128/72 (90) Pulse Ox 99 O2 Delivery Room Air Capillary Refill : Departure Communication (Admissions) 10 cc of Urojet lidocaine gel was instilled into the urethra, after instillation of this a large finger size clots came out of the urethra. He was then able to urinate a bit on his own. 18 Iranian Moncada catheter was inserted. We were able to aspirate several small clots, this was in exchange for a 22 Iranian 3-way Moncada catheter. This was hooked up to a 3 L bag of sterile water for continuous bladder irrigation. 1525-ran a 3 L bag of sterile water for continuous bladder irrigation through here in the ER, urine color lightened and was without clots. The 3-way Moncada catheter [address] attached to a leg bag. Will be sent home. He needs to call his urologist at for follow-up. I discussed with Dr. De Paz and he agrees with plan of care. Impression Primary Impression: Hematuria Additional Impression: Acute urinary retention Disposition: HOME, SELF-CARE Condition: Stable Departure-Patient Inst. Decision time for Depature: 15:26 Referrals: DINO BROWN DO (PCP/Family) Primary Care Physician Patient Instructions: Urinary Retention (DC) Add. Discharge Instructions: 1. Call your urologist at to make an appointment to be seen for follow-up. Antibiotics as directed. Return to ER for any concerns such as if you're unable to pee and feel sensation of a full bladder. Stop your aspirin for 3-5 days Scripts Cefuroxime Axetil (Cefuroxime) 250 Mg Tablet 250 MG PO BID, #10 TAB Prov: THUAN CARDENAS APRN 06/05/19 THUAN CARDENAS APRN Jun 05, 2019 14:13
[2019-06-05] MEDS ORDERED: LEVOFLOXACIN 500 MG TAB (LEVAQUIN) PO ONE (14:15)
[2019-06-05 15:12] LABS: BASOPHILS % (AUTO) 0 % (0-10); EOSINOPHILS % (AUTO) 0 % (0-10); HEMATOCRIT 26 % (40-54); HEMOGLOBIN 8.3 G/DL (13.3-17.7); LYMPHOCYTES # (AUTO) 0.9 X 10^3 (1.0-4.0); LYMPHOCYTES % (AUTO) 9 % (12-44); MEAN CORPUSCULAR HEMOGLOBIN 28 PG (25-34); MEAN CORPUSCULAR HGB CONC 32 G/DL (32-36); MEAN CORPUSCULAR VOLUME 87 FL (80-99); MEAN PLATELET VOLUME 9.7 FL (7.4-10.4); MONOCYTES # (AUTO) 0.8 X 10^3 (0.0-1.0); MONOCYTES % (AUTO) 8 % (0-12); NEUTROPHILS # (AUTO) 8.4 X 10^3 (1.8-7.8); NEUTROPHILS % (AUTO) 83 % (42-75); PLATELET COUNT 288 10^3/uL (130-400); RED CELL DISTRIBUTION WIDTH 13.9 % (10.0-14.5); WHITE BLOOD COUNT 10.2 10^3/uL (4.3-11.0)
[2019-06-05 15:20] LABS: CHLORIDE 105 MMOL/L (98-107); POTASSIUM 4.5 MMOL/L (3.6-5.0); SODIUM 137 MMOL/L (135-145)
[2019-06-05 15:22] LABS: CALCIUM 8.8 MG/DL (8.5-10.1); GLUCOSE 130 MG/DL (70-105)
[2019-06-05 15:24] LABS: CARBON DIOXIDE 21 MMOL/L (21-32)
[2019-06-05 15:26] LABS: CREATININE SERUM 0.99 MG/DL (0.60-1.30); GFR ESTIMATED > 60
[2019-06-05 15:27] LABS: BUN/CREATININE RATIO 12
[2019-06-05] MEDS ORDERED: CEFU250T80 PO (15:31)
[2019-06-05 16:19] VITALS: BP 143/67
== END 2019-06-05 16:19 | disposition home or self-care (01) ==
LOC: EDUNIT# 13:36 → ER 13:37
DX: R33.9 Retention of urine, unspecified (principal); R31.9 Hematuria, unspecified; I10 Essential (primary) hypertension; E78.00 Pure hypercholesterolemia, unspecified; Z95.5 Presence of coronary angioplasty implant and graft; I25.2 Old myocardial infarction; Z85.828 Personal history of other malignant neoplasm of skin; M19.91 Primary osteoarthritis, unspecified site; E11.9 Type 2 diabetes mellitus without complications; Z85.46 Personal history of malignant neoplasm of prostate; Z92.3 Personal history of irradiation
CPT/HCPCS: 36415; 51702; 80048; 85025

== ENCOUNTER 2019-06-09 08:38 | Emergency (ER) | payer MEDICARE ==
[~2019-06-09] VITALS: Ht 172 cm; Wt 99.7 kg
[~2019-06-09 08:38] MED LIST changes: +CEFU250T80 PO
--- NOTE | 2019-06-09 09:02 | ED GU-Male ---
General Chief Complaint: Catheter/Drain/Tube Problems Stated Complaint: CATHETER REMOVAL Nursing Triage Note: pt presents to ed for urinary cath removal Source: patient History of Present Illness Date Seen by Provider: Jun 09, 2019 Time Seen by Provider: 08:45 Initial Comments PT ARRIVES VIA POV FROM HOME HERE FOR NAJERA CATHETER REMOVAL PT HAD PROSTATECTOMY AT 04/17/[address] OFF AND ON SINCE SURGERY--WAS SEEN HERE 06/05/19 FOR URINARY RETENTION WITH HEMATURIA AND BLOOD CLOTS HAD BLADDER IRRIGATION DONE HERE IN ER ON 06/05/19 AND SENT HOME WITH CATHETER IN PLACE PT STATES HE HAS NOT HAD ANY FURTHER BLEEDING AND CATHETER HAS BEEN WORKING FINE STATES HE HAS NOT FOLLOWED UP WITH [facility] SINCE THIS CATHETER WAS PLACED--STATES HE WAS RELEASED BY [facility] SOME TIME AGO, AND TOLD HE DOES NOT HAVE TO COME BACK HAS NOT FOLLOWED UP WITH DR. ESTES EITHER NO FEVER NO ABDOMINAL PAIN NO NAUSEA/VOMITING STATES HE FEELS FINE. HAS 2 DAYS LEFT OF ANTIBIOTICS PCP: DR. BROWN UROLOGIST: DR ESTES AND [facility] Allergies and Home Medications Allergies Coded Allergies: No Known Drug Allergies (Unverified , 02/22/18) Home Medications Aspirin 81 Mg Tablet.dr, 81 MG PO DAILY, (Reported) Atenolol 50 Mg Tablet, 100 MG PO BID, (Reported) TAKE 2 (50MG) TABS Cefdinir 300 Mg Capsule, 300 MG PO BID Prescribed by: THUAN CARDENAS on 05/20/19 1047 Cefuroxime Axetil 250 Mg Tablet, 250 MG PO BID Prescribed by: THUAN CARDENAS on 06/05/19 1531 Clopidogrel Bisulfate 75 Mg Tablet, 75 MG PO DAILY, (Reported) Doxazosin Mesylate 2 Mg Tablet, 2 MG PO HS, (Reported) Lisinopril 20 Mg Tablet, 20 MG PO BID, (Reported) Lovastatin 20 Mg Tablet, 20 MG PO HS, (Reported) Metformin HCl 500 Mg Tablet, 500 MG PO BID WITH MEALS, (Reported) Multivitamin 1 Each Tablet, 1 EACH PO DAILY, (Reported) Nifedipine 60 Mg Tab.er.24, 60 MG PO DAILY, (Reported) [place]-3S/Dha/Epa/Fish Oil 1 Each Capsule, 1,200 MG PO BID, (Reported) Phenazopyridine HCl 100 Mg Tablet, 100 MG PO Q8H PRN for SPASMS Prescribed by: MEG BREAUX on 05/24/19 1206 Quetiapine Fumarate 200 Mg Tablet, 200 MG PO HS, (Reported) Tramadol HCl 50 Mg Tablet, 50 MG PO Q12H PRN for PAIN-MILD TO MODERATE Prescribed by: LARRY NO on 02/27/18 1231 Patient Home Medication List Home Medication List Reviewed: Yes Review of Systems Review of Systems Constitutional: no symptoms reported Respiratory: no symptoms reported Cardiovascular: no symptoms reported Gastrointestinal: no symptoms reported Genitourinary: see HPI Musculoskeletal: no symptoms reported Skin: no symptoms reported Psychiatric/Neurological: No Symptoms Reported Past Uxqjsdj-Zkugzv-Bzltoh Hx Past Med/Social Hx: Reviewed and Corrections made Patient Social History Alcohol Use: Occasionally Uses Recreational Drug Use: No Smoking Status: Former Smoker Former Smoker, Quit: Apr 16, 1976 2nd Hand Smoke Exposure: No Recent Foreign Travel: No Contact w/Someone Who Travel: No Recent Infectious Disease Expo: No Recent Hopitalizations: No Physical Abuse: No Sexual Abuse: No Mistreated: No Fear: No Immunizations Up To Date Tetanus Booster (TDap): More than 5yrs PED Vaccines UTD: Yes Date of Pneumonia Vaccine: Apr 16, 2012 Date of Influenza Vaccine: Nov 19, 2017 Seasonal Allergies Seasonal Allergies: No Past Medical History Surgeries: Yes ( tongue surgery;cyst on spine tailbone;SKIN CA;TURP;PROSTATECTOMY 04/17/19 ) Cardiac, Coronary Stent, Prostatectomy, Thyroidectomy Respiratory: No Cardiac: Yes (STENTS X4, LAST ONE 2013, "ABOUT 8" HEART ATTACKS PRIOR TO STENTS ) Heart Attack, High Cholesterol, Hypertension Neurological: No Sexually Transmitted Disease: No HIV/AIDS: No Genitourinary: Yes (TURP; PROSTATECTOMY 04/17/19 AT ) Prostate Problems Gastrointestinal: No Musculoskeletal: Yes Arthritis Endocrine: Yes Diabetes, Non-Insulin dep HEENT: Yes (GLASSES) Loss of Vision: Bilateral Hearing Impairment: Denies Cancer: Yes (TONGUE) Prostate, Skin Did You Recieve Any Treatments: Yes What Type of Treatment Did You: Radiation, Surgical Intervention Psychosocial: Yes Sleep Difficulties Integumentary: No Blood Disorders: No Adverse Reaction/Blood Tranf: No (N/A) Physical Exam Vital Signs Vital Signs - First Documented 06/09/19 08:46 Temp 36.8 Pulse 85 Resp 18 B/P (MAP) 156/73 (100) Pulse Ox 99 Capillary Refill : Less Than 3 Seconds Height, Weight, BMI Height: 5'8.00" Weight: 220lbs. 0.0oz. 99.930754vm; 33.00 BMI Method:Stated General Appearance: WD/WN, no apparent distress Respiratory: normal breath sounds Gastrointestinal: non tender, soft, no organomegaly Genital/Rectal: other (NAJERA CATHETER WITH 300 ML CLEAR URINE. ) Back: no CVA tenderness Extremities: normal inspection Neurologic/Psychiatric: no motor/sensory deficits, alert, normal mood/affect, oriented x 3 Skin: normal color, warm/dry Progress/Results/Core Measures Suspected Sepsis Recent Fever Within 48 Hours: No Infection Criteria Present: None New/Unexplained Altered Menta: No Sepsis Screen: No Definite Risk SIRS Temperature: Pulse: 85 Respiratory Rate: 18 Blood Pressure 156 /73 Mean: 100 Results/Orders Vital Signs/I&O 06/09/19 08:46 Temp 36.8 Pulse 85 Resp 18 B/P (MAP) 156/73 (100) Pulse Ox 99 Capillary Refill : Less Than 3 Seconds Blood Pressure Mean: 100 Progress Note : Progress Note CATHETER REMOVED AT PT'S REQUEST ADVISES TO FOLLOW UP WITH DR. ESTES OR [facility] IF PROBLEMS Departure Impression Primary Impression: Encounter for Najera catheter removal Disposition: HOME, SELF-CARE Condition: Stable Departure-Patient Inst. Referrals: DINO BROWN DO (PCP/Family) Primary Care Physician KATHERIN ESTES MD Patient Instructions: NO INSTRUCTIONS GIVEN Add. Discharge Instructions: FOLLOW UP WITH DR. ESTES OR YOUR DR AT [facility] IF YOU HAVE ANY PROBLEMS FINISH ANTIBIOTICS All discharge instructions reviewed with patient and/or family. Voiced understanding. FER ALBERTO DO Jun 09, 2019 09:02
[2019-06-09 09:08] VITALS: BP 145/72
== END 2019-06-09 09:10 | disposition home or self-care (01) ==
LOC: EDUNIT# 08:38 → ER 08:39
DX: Z43.6 Encounter for attention to other artificial openings of urinary tract (principal); I10 Essential (primary) hypertension; E11.9 Type 2 diabetes mellitus without complications; I25.2 Old myocardial infarction; E78.00 Pure hypercholesterolemia, unspecified; Z79.82 Long term (current) use of aspirin; Z79.02 Long term (current) use of antithrombotics/antiplatelets; Z87.891 Personal history of nicotine dependence; Z95.5 Presence of coronary angioplasty implant and graft; Z79.84 Long term (current) use of oral hypoglycemic drugs; Z85.828 Personal history of other malignant neoplasm of skin; Z85.46 Personal history of malignant neoplasm of prostate
CPT/HCPCS: 99281

== ENCOUNTER → 2019-06-25 | Outpatient (CLI) | payer MEDICARE ==
--- NOTE | 2019-06-25 15:04 | Diagnostic Imaging Report ---
PROCEDURE: CT abdomen and pelvis without contrast. TECHNIQUE: Multiple contiguous axial images were obtained through the abdomen and pelvis without the use of intravenous contrast. Auto Exposure Controls were utilized during the CT exam to meet ALARA standards for radiation dose reduction. INDICATION: Prostate cancer, prostatectomy two months ago with urinary retention. COMPARISON: Study interpreted in correlation with an outside Axumin PET/CT of 05/14/2017. FINDINGS: There has been interval prostatectomy. There is a small amount of nonloculated dependent pelvic free fluid, probably in total 5 mL or less. This showed no obvious CT complexity. There is no hydroureteronephrosis. No radiodense urinary tract stone. The urinary bladder was nearly completely empty. This along with its lack of opacification severely limit its evaluation. No appreciable adenopathy or abnormal tissue along the pelvic sidewalls. There are largely fatty lymph nodes in the bilateral groins with no suspicious-appearing jumana mass. No periaortic retroperitoneal adenopathy. There is no mesenteric mass. This patient's lung bases were unremarkable. There are degenerative changes to the spine, resulting in severe canal stenosis at L2-L3 as well as substantial stenosis at L5-S1. These are stable and chronic. An acute bony abnormality or suspicious sclerotic focus are not identified. Bone island in the right iliac bone is stable from prior and previously was PET negative. IMPRESSION: Nearly empty urinary bladder without hydroureteronephrosis. There is a small-volume pelvic free fluid without findings of intra or extraperitoneal hemorrhage. No ileus or bowel obstruction. No suspicious bony finding. Dictated by: Dictated on workstation # [id number]
== END ==
LOC: RAD 13:39
PROVIDERS: ATTEND Urology
DX: C61 Malignant neoplasm of prostate (principal)
CPT/HCPCS: 74176

== ENCOUNTER → 2019-08-05 | Outpatient (CLI) | payer MEDICARE ==
[~2019-08-05] VITALS: Ht 171 cm; Wt 102.0 kg
[~2019-08-05] MED LIST changes: +CATHETER FLUSH 10 ML SYR IV PRN; +MULT-567 PO; -MULT1TAB69 PO; +REGADENOSON 0.4 MG/5 ML SYR (LEXISCAN) IV ONE
--- NOTE | 2019-08-05 15:11 | STRESS TEST ---
DATE OF SERVICE: 08/05/2019 RESTING AND POST REGADENOSON TECHNETIUM-99M TETROFOSMIN SPECT CT IMAGING ORDERING PHYSICIAN: Dr. Arias. PRIMARY PHYSICIAN: Dr. Rai. CLINICAL DIAGNOSES: Coronary artery disease. Baseline images were carried out after injection of 10.85 mCi of technetium-99m Tetrofosmin. This was followed by 0.4 mg regadenoson and 30.5 mCi of technetium-99m Tetrofosmin for stress imaging. The electrocardiogram showed sinus rhythm with right bundle branch block at baseline. This did not change significantly with the regadenoson infusion. The patient tolerated the procedure well. Review of images at rest and following stress does not indicate any distinct perfusion defects consistent with significant myocardial ischemia or infarction. Gated images show normal global left ventricular systolic function with normal regional wall motion. Left ventricular ejection fraction is calculated to be 64%. CONCLUSIONS: 1. No evidence of any significant myocardial ischemia or infarction on this study. 2. Normal regional wall motion. 3. Normal global left ventricular systolic function with a calculated ejection fraction of 64%. Job ID: [id number] DocumentID: [id number] Dictated Date: 08/05/2019 14:57:09 Moth Exterminator Date: 08/05/2019 15:09:28 Dictated By: DUSTY ARIAS MD, MA, FACP, FACC, MTDD
== END ==
LOC: CARD 08:06
PROVIDERS: ATTEND Internal Medicine Cardiovascular Disease
DX: I25.10 Atherosclerotic heart disease of native coronary artery without angina pectoris (principal); I65.23 Occlusion and stenosis of bilateral carotid arteries; E11.9 Type 2 diabetes mellitus without complications; E78.5 Hyperlipidemia, unspecified; I10 Essential (primary) hypertension; I45.2 Bifascicular block; Z87.891 Personal history of nicotine dependence
CPT/HCPCS: 78452; 93017; A9502

== ENCOUNTER 2020-02-08 10:43 | Emergency (ER) | payer MEDICARE ==
[~2020-02-08] VITALS: Ht 172.7 cm; Wt 99.7 kg
[~2020-02-08 10:43] MED LIST changes: -CATHETER FLUSH 10 ML SYR IV PRN; -REGADENOSON 0.4 MG/5 ML SYR (LEXISCAN) IV ONE
[2020-02-08] MEDS ORDERED: fentaNYL INJECTION 100 MCG/2 ML AMP IVP STA ×2 (11:09→12:33)
--- NOTE | 2020-02-08 11:26 | ED Fall/Injury ---
General Chief Complaint: Trauma-Non Activation Stated Complaint: FALL/RIGHT HIP PAIN Nursing Triage Note: PT TO RM 7 BY WHEELCHAIR WITH COMPLAINT OF RIGHT HIP PAIN. STATES TRIPPED ON TREE ROOT IN YARD AND LANDED ON RIGHT HIP. Source: patient Exam Limitations: no limitations History of Present Illness Date Seen by Provider: Feb 08, 2020 Time Seen by Provider: 11:09 Initial Comments Here with report of right hip and low back pain after fall today. He apparently tripped in the yard. He was able to walk with significant assistance and came here by private vehicle which his drove. Arrives to the emergency department in wheelchair. Denies head injury but does admit to being on Plavix and aspirin. Denies other injury. No contact with Covid. Occurred: this morning (Proximately 45 minutes ago) Severity: moderate Injuries/Pain Location: back Context: tripped Loss of Consciousness: no loss of consciousness Modifying Factors: Improves With Immobilization; Worse With Movement; Improves With Rest Associated Symptoms (Fall): No Chest Pain, No Headache, No Nausea/Vomiting, No Neck Pain, No Shortness of Air Allergies and Home Medications Allergies Coded Allergies: No Known Drug Allergies (Unverified , 02/22/18) Home Medications Aspirin 81 Mg Tablet.dr, 81 MG PO DAILY, (Reported) Atenolol 50 Mg Tablet, 100 MG PO BID, (Reported) TAKE 2 (50MG) TABS Cefdinir 300 Mg Capsule, 300 MG PO BID Prescribed by: THUAN CARDENAS on 05/20/19 1047 Cefuroxime Axetil 250 Mg Tablet, 250 MG PO BID Prescribed by: THUAN CARDENAS on 06/05/19 1531 Clopidogrel Bisulfate 75 Mg Tablet, 75 MG PO DAILY, (Reported) Doxazosin Mesylate 2 Mg Tablet, 2 MG PO HS, (Reported) Lisinopril 20 Mg Tablet, 20 MG PO BID, (Reported) Lovastatin 20 Mg Tablet, 20 MG PO HS, (Reported) Metformin HCl 500 Mg Tablet, 500 MG PO BID WITH MEALS, (Reported) Multivitamin 1 Each Tablet, 1 EACH PO DAILY, (Reported) Nifedipine 60 Mg Tab.er.24, 60 MG PO DAILY, (Reported) [place]-3S/Dha/Epa/Fish Oil 1 Each Capsule, 1,200 MG PO BID, (Reported) Phenazopyridine HCl 100 Mg Tablet, 100 MG PO Q8H PRN for SPASMS Prescribed by: MEG BREAUX on 05/24/19 1206 Quetiapine Fumarate 200 Mg Tablet, 200 MG PO HS, (Reported) Tramadol HCl 50 Mg Tablet, 50 MG PO Q12H PRN for PAIN-MILD TO MODERATE Prescribed by: LARRY NO on 02/27/18 1231 Patient Home Medication List Home Medication List Reviewed: Yes Review of Systems Review of Systems Constitutional: see HPI; No chills, No fever Eyes: No Symptoms Reported Ears, Nose, Mouth, Throat: no symptoms reported Respiratory: No cough, No short of breath Cardiovascular: No chest pain, No edema Gastrointestinal: No abdominal pain, No nausea, No vomiting Genitourinary: no symptoms reported Musculoskeletal: see HPI, back pain, joint pain, muscle stiffness; No muscle weakness Skin: No change in color, No lesions Psychiatric/Neurological: Denies Headache, Denies Paresthesia, Denies Weakness All Other Systems Reviewed Negative Unless Noted: Yes Past Mwjxfcw-Xnawmt-Rsphjd Hx Past Med/Social Hx: Reviewed Nursing Past Med/Soc Hx Patient Social History Alcohol Use: Occasionally Uses Recreational Drug Use: No Smoking Status: Former Smoker Former Smoker, Quit: Apr 16, 1976 2nd Hand Smoke Exposure: No Recent Foreign Travel: No Contact w/Someone Who Travel: No Recent Infectious Disease Expo: No Recent Hopitalizations: No Immunizations Up To Date Tetanus Booster (TDap): More than 5yrs PED Vaccines UTD: Yes Date of Pneumonia Vaccine: Apr 16, 2012 Date of Influenza Vaccine: Nov 19, 2017 Seasonal Allergies Seasonal Allergies: No Past Medical History Surgeries: Yes ( tongue surgery;cyst on spine tailbone;SKIN CA;TURP;PROST ATECTOMY 04/17/19 ) Cardiac, Coronary Stent, Prostatectomy, Thyroidectomy Respiratory: No Cardiac: Yes (STENTS X4, LAST ONE 2013, "ABOUT 8" HEART ATTACKS PRIOR TO STENTS ) Heart Attack, High Cholesterol, Hypertension Neurological: No Sexually Transmitted Disease: No HIV/AIDS: No Genitourinary: Yes (TURP; PROSTATECTOMY 04/17/19 AT ) Prostate Problems Gastrointestinal: No Musculoskeletal: Yes Arthritis Endocrine: Yes Diabetes, Non-Insulin dep HEENT: Yes (GLASSES) Loss of Vision: Bilateral Hearing Impairment: Denies Cancer: Yes (TONGUE) Prostate, Skin Did You Recieve Any Treatments: Yes What Type of Treatment Did You: Radiation, Surgical Intervention Psychosocial: Yes Sleep Difficulties Integumentary: No Blood Disorders: No Adverse Reaction/Blood Tranf: No (N/A) Family Medical History Reviewed Nursing Family Hx Physical Exam Vital Signs Vital Signs - First Documented 02/08/20 10:49 Temp 35.3 Pulse 74 Resp 20 B/P (MAP) 143/78 (99) Pulse Ox 98 O2 Delivery Room Air Capillary Refill : Less Than 3 Seconds Height, Weight, BMI Height: 5'8.00" Weight: 220lbs. 0.0oz. 99.517492be; 33.00 BMI Method:Stated General Appearance: WD/WN, no apparent distress HEENT: PERRL/EOMI, pharynx normal Neck: full range of motion, supple Cardiovascular: regular rate, rhythm, no murmur Respiratory: lungs clear, normal breath sounds Gastrointestinal: non tender, soft Back: no vertebral tenderness, muscle spasm, other (Tender to the area of the right low back) Extremities: no calf tenderness, pelvis stable, other (Tender right superior pelvis posterior) Neurologic/Psychiatric: alert, oriented x 3 Skin: normal color, warm/dry Jarek Coma Score Best Eye Response: (4) Open Spontaneously Best Verbal Response: (5) Oriented Best Motor Response: (6) Obeys Commands Progress/Results/Core Measures Results/Orders My Orders Orders - JENNIFER HALL MD Pelvis With Right Hip 2-3views (02/08/20 11:03) Ct Head Wo (02/08/20 11:09) Ct Lumbar Spine Wo (02/08/20 11:09) Ed Iv/Invasive Line Start (02/08/20 11:09) Fentanyl Injection (Sublimaze Injection (02/08/20 11:09) Ketorolac Injection (Toradol Injection) (02/08/20 12:28) Tramadol Tablet (Ultram Tablet) (02/08/20 12:29) Orphenadrine Inj (Ed Only) (Norflex Inje (02/08/20 12:31) Fentanyl Injection (Sublimaze Injection (02/08/20 12:33) Vital Signs/I&O 02/08/20 10:49 Temp 35.3 Pulse 74 Resp 20 B/P (MAP) 143/78 (99) Pulse Ox 98 O2 Delivery Room Air Blood Pressure Mean: 99 Progress Progress Note : Progress Note Seen and evaluated. X-ray pelvis and right hip ordered. CT head and lumbar spine ordered. IV and fentanyl 50 mcg IV ordered for pain. Monitor patient. 1233: X-rays are negative. Anticipated discharge. We gave Toradol 30 mg IV and tramadol 50 mg p.o. Patient had more significant pain on movement so we did add Norflex 60 mg IV and fentanyl 50 mcg IV and we will see if that helps. Monitor patient. Does appear that he has more spasm-like pain from the low back on the right side. Diagnostic Imaging Diagonstic Imaging: CT Plain Films/CT/US/NM/MRI: head Comments [facility] [place], [place] NAME: AMBER LAINEZ [facility] REC#: [id number] PT STATUS: REG ER : 1945 PHYSICIAN: JENNIFER HALL MD ADMIT DATE: 02/08/20/ER Draft Date of Exam:02/08/20 CT HEAD WO PROCEDURE: CT head without contrast. TECHNIQUE: Multiple contiguous axial images were obtained through the brain without the use of intravenous contrast. Auto Exposure Controls were utilized during the CT exam to meet ALARA standards for radiation dose reduction. INDICATION: Fall. Anticoagulation therapy. COMPARISON: None FINDINGS: Moderate generalized cerebral and cerebellar parenchymal volume loss. No intracranial hemorrhage, mass effect, hydrocephalus or extra-axial fluid collections. No CT evidence of a territorial infarction. Osseous structures are intact. Mild mucosal thickening in the sphenoid and ethmoid sinuses. Mastoids are clear. IMPRESSION: No acute intracranial CT findings. Dictated on workstation # [id number] Dict: 02/08/20 1133 Trans: 02/08/20 1141 BANNER [id number] Interpreted by: JOSE ALFREDO FRANCO MD Electronically signed by: Diagonstic Imaging: CT Plain Films/CT/US/NM/MRI: other Comments [facility] [place], [place] NAME: AMBER LAINEZ [facility] REC#: [id number] PT STATUS: REG ER : 1945 PHYSICIAN: JENNIFER HALL MD ADMIT DATE: 02/08/20/ER Draft Date of Exam:02/08/20 CT LUMBAR SPINE WO PROCEDURE: CT lumbar spine without contrast. TECHNIQUE: Multiple contiguous axial images were obtained through the lumbar spine without the use of intravenous contrast. Sagittal and coronal reformations were then performed. Auto Exposure Controls were utilized during the CT exam to meet ALARA standards for radiation dose reduction. INDICATION: Fall. Anticoagulation therapy. COMPARISON: CT abdomen pelvis without contrast 06/25/2019. FINDINGS: There are 5 lumbar-type vertebral bodies. Normal alignment. Vertebral body heights preserved. No fractures. Postoperative findings laminectomies at L3 and L4. Disc osteophyte complexes L2-L3 results in at least moderate spinal canal stenosis. These are similar to 06/25/2019. Moderate to severe neural foraminal narrowing bilaterally at L2-L3, L4-L5 and L5-S1. IMPRESSION: 1. No acute CT findings in the lumbar spine. 2. Spondylotic changes result in multilevel high-grade neural foraminal narrowing as above. There may also be high-grade spinal canal stenosis at L2-L3. This could be further evaluated with MRI if clinically warranted. Dictated on workstation # [id number] Dict: 02/08/20 1138 Trans: 02/08/20 1150 BANNER [id number] Interpreted by: JOSE ALFREDO FRANCO MD Electronically signed by: Diagonstic Imaging: Xray Plain Films/CT/US/NM/MRI: pelvis, hip Comments [facility] [place] NAME: AMBER LAINEZ [facility] REC#: [id number] PT STATUS: REG ER : 1945 PHYSICIAN: JENNIFER HALL MD ADMIT DATE: 02/08/20/ER Draft Date of Exam:02/08/20 PELVIS WITH RIGHT HIP 2-3VIEWS EXAMINATION: Pelvis, single view. Right hip, 2 additional views. COMPARISON: CT abdomen pelvis without contrast June 25, 2019. HISTORY: 74-year-old male, fall. Pelvic and right hip pain. FINDINGS: The pubic symphysis and sacroiliac joints are normally aligned. The left hip is not obviously dislocated. The right hip is not dislocated. There is no identified acute fracture. There are degenerative changes of the lower lumbar spine. There is a sclerotic lesion overlying the right iliac bone measuring 1.6 cm in size. IMPRESSION: 1. No identified acute bony abnormality at the level of the pelvis or right hip. 2. Sclerotic lesion in the right iliac bone stable since at least June 25, 2019. This most likely reflects a benign bone island although is difficult to definitively characterize. Dictated on workstation # [id number] Dict: 02/08/20 1143 Trans: 02/08/20 1152 BANNER [id number] Interpreted by: GENIA MAHER MD Electronically signed by: Departure Impression Primary Impression: Contusion of right hip Qualified Codes: S70.01XA - Contusion of right hip, initial encounter Additional Impression: Lumbar radiculopathy, right Disposition: HOME, SELF-CARE Condition: Stable Departure-Patient Inst. Decision time for Depature: 12:35 Referrals: DINO BROWN DO (PCP/Family) Primary Care Physician Patient Instructions: Contusion (DC), Radiculopathy (DC) Add. Discharge Instructions: All discharge instructions reviewed with patient and/or family. Voiced understanding. Take medication as directed. Follow-up with your doctor early this week for recheck and further evaluation. Return for worse pain, weakness, numbness, difficulties with walking or going to the bathroom or other concerns as needed. Scripts Cyclobenzaprine HCl (Cyclobenzaprine HCl) 5 Mg Tablet 5 MG PO TID PRN for SPASMS, #14 TAB 0 Refills Prov: JENNIFER HALL MD 02/08/20 Hydrocodone/Acetaminophen (Hydrocodone/Acetaminophen 5 MG/325 MG TAB) 1 Each Tablet 1 TAB PO Q6H PRN for PAIN-MODERATE (5-7) MDD 10 TABS for 7 Days, #12 TAB 0 Refil ls Prov: JENNIFER HALL MD 02/08/20 Copy Copies To 1: DINO BROWN TIMOTHY D MD Feb 08, 2020 11:26
--- NOTE | 2020-02-08 11:41 | Diagnostic Imaging Report ---
PROCEDURE: CT head without contrast. TECHNIQUE: Multiple contiguous axial images were obtained through the brain without the use of intravenous contrast. Auto Exposure Controls were utilized during the CT exam to meet ALARA standards for radiation dose reduction. INDICATION: Fall. Anticoagulation therapy. COMPARISON: None FINDINGS: Moderate generalized cerebral and cerebellar parenchymal volume loss. No intracranial hemorrhage, mass effect, hydrocephalus or extra-axial fluid collections. No CT evidence of a territorial infarction. Osseous structures are intact. Mild mucosal thickening in the sphenoid and ethmoid sinuses. Mastoids are clear. IMPRESSION: No acute intracranial CT findings. Dictated by: Dictated on workstation # [id number]
--- NOTE | 2020-02-08 11:50 | Diagnostic Imaging Report ---
PROCEDURE: CT lumbar spine without contrast. TECHNIQUE: Multiple contiguous axial images were obtained through the lumbar spine without the use of intravenous contrast. Sagittal and coronal reformations were then performed. Auto Exposure Controls were utilized during the CT exam to meet ALARA standards for radiation dose reduction. INDICATION: Fall. Anticoagulation therapy. COMPARISON: CT abdomen pelvis without contrast 06/25/2019. FINDINGS: There are 5 lumbar-type vertebral bodies. Normal alignment. Vertebral body heights preserved. No fractures. Postoperative findings laminectomies at L3 and L4. Disc osteophyte complexes L2-L3 results in at least moderate spinal canal stenosis. These are similar to 06/25/2019. Moderate to severe neural foraminal narrowing bilaterally at L2-L3, L4-L5 and L5-S1. IMPRESSION: 1. No acute CT findings in the lumbar spine. 2. Spondylotic changes result in multilevel high-grade neural foraminal narrowing as above. There may also be high-grade spinal canal stenosis at L2-L3. This could be further evaluated with MRI if clinically warranted. Dictated by: Dictated on workstation # [id number]
--- NOTE | 2020-02-08 11:52 | Diagnostic Imaging Report ---
EXAMINATION: Pelvis, single view. Right hip, 2 additional views. COMPARISON: CT abdomen pelvis without contrast June 25, 2019. HISTORY: 74-year-old male, fall. Pelvic and right hip pain. FINDINGS: The pubic symphysis and sacroiliac joints are normally aligned. The left hip is not obviously dislocated. The right hip is not dislocated. There is no identified acute fracture. There are degenerative changes of the lower lumbar spine. There is a sclerotic lesion overlying the right iliac bone measuring 1.6 cm in size. IMPRESSION: 1. No identified acute bony abnormality at the level of the pelvis or right hip. 2. Sclerotic lesion in the right iliac bone stable since at least June 25, 2019. This most likely reflects a benign bone island although is difficult to definitively characterize. Dictated by: Dictated on workstation # [id number]
[2020-02-08] MEDS ORDERED: KETOROLAC 30 MG/ML VIAL IVP STA (12:28)
[2020-02-08] MEDS ORDERED: ORPHENADRINE 60 MG/2 ML (NORFLEX) AMP (ED ONLY) ONE (12:29)
[2020-02-08] MEDS ORDERED: ORPHENADRINE 60 MG/2 ML (NORFLEX) AMP (ED ONLY) IV STA (12:31)
[2020-02-08] MEDS ORDERED: CYCL5TAB PO (12:41)
[2020-02-08] MEDS ORDERED: HYDR-4226 PO (12:41)
[2020-02-08 13:25] VITALS: BP 162/79
== END 2020-02-08 13:25 | disposition home or self-care (01) ==
LOC: EDUNIT# 10:43 → ER 10:45
DX: S70.01XA Contusion of right hip, initial encounter (principal); M54.16 Radiculopathy, lumbar region; I25.2 Old myocardial infarction; E78.00 Pure hypercholesterolemia, unspecified; I10 Essential (primary) hypertension; E11.9 Type 2 diabetes mellitus without complications; Z85.46 Personal history of malignant neoplasm of prostate; Z85.828 Personal history of other malignant neoplasm of skin; Z87.891 Personal history of nicotine dependence; Z95.5 Presence of coronary angioplasty implant and graft; Z79.82 Long term (current) use of aspirin; Z79.84 Long term (current) use of oral hypoglycemic drugs; W01.0XXA Fall on same level from slipping, tripping and stumbling without subsequent striking against object, initial encounter
CPT/HCPCS: 70450; 72131

== ENCOUNTER 2020-03-23 16:00 | Inpatient (IN) | payer MEDICARE ==
[~2020-03-23] VITALS: Ht 133 cm; Wt 95.4 kg
[~2020-03-23 16:00] MED LIST changes: +HYDR-4226 PO
[2020-03-23] MEDS ORDERED: FAMOTIDINE 20MG/2ML IV (PEPCID) IV STA (16:15)
[2020-03-23] MEDS ORDERED: NS IV 1000 ML 1,000 ML IV SCH (16:15)
[2020-03-23] MEDS ORDERED: ONDANSETRON 4 MG/2 ML (SDV) Z0FRAN IVP ONE (16:15)
--- NOTE | 2020-03-23 16:15 | ED Abdominal Pain ---
General Stated Complaint: N/V,WEAKNESS,FEVER History of Present Illness Date Seen by Provider: Mar 23, 2020 Time Seen by Provider: 16:13 Initial Comments 74-year-old male presents with abdominal pain, nausea, vomiting, fever, generalized weakness and a weight loss of about 13 pounds over the last couple days. Patient is a inability to keep kneeling down. Patient was tested 3 days ago for Covid and found to be negative. He denies cough, shortness of breath, diarrhea. He is passing a bit of gas. He complains of diffuse abdominal pain. (KING CARDONA DO) Allergies and Home Medications Allergies Coded Allergies: No Known Drug Allergies (Unverified , 02/22/18) Home Medications Aspirin 81 Mg Tablet.dr, 81 MG PO DAILY, (Reported) Atenolol 50 Mg Tablet, 100 MG PO BID, (Reported) TAKE 2 (50MG) TABS Cefdinir 300 Mg Capsule, 300 MG PO BID Prescribed by: THUAN CARDENAS on 05/20/19 1047 Cefuroxime Axetil 250 Mg Tablet, 250 MG PO BID Prescribed by: THUAN CARDENAS on 06/05/19 1531 Clopidogrel Bisulfate 75 Mg Tablet, 75 MG PO DAILY, (Reported) Cyclobenzaprine HCl 5 Mg Tablet, 5 MG PO TID PRN for SPASMS Prescribed by: JENNIFER HALL on 02/08/20 1241 Doxazosin Mesylate 2 Mg Tablet, 2 MG PO HS, (Reported) Hydrocodone/Acetaminophen 1 Each Tablet, 1 TAB PO Q6H PRN for PAIN-MODERATE (5- 7) Prescribed by: JENNIFER HALL on 02/08/20 1242 Lisinopril 20 Mg Tablet, 20 MG PO BID, (Reported) Lovastatin 20 Mg Tablet, 20 MG PO HS, (Reported) Metformin HCl 500 Mg Tablet, 500 MG PO BID WITH MEALS, (Reported) Multivitamin 1 Each Tablet, 1 EACH PO DAILY, (Reported) Nifedipine 60 Mg Tab.er.24, 60 MG PO DAILY, (Reported) [place]-3S/Dha/Epa/Fish Oil 1 Each Capsule, 1,200 MG PO BID, (Reported) Phenazopyridine HCl 100 Mg Tablet, 100 MG PO Q8H PRN for SPASMS Prescribed by: MEG BREAUX on 05/24/19 1206 Quetiapine Fumarate 200 Mg Tablet, 200 MG PO HS, (Reported) Tramadol HCl 50 Mg Tablet, 50 MG PO Q12H PRN for PAIN-MILD TO MODERATE Prescribed by: LARRY NO on 02/27/18 1231 Patient Home Medication List Home Medication List Reviewed: Yes (KING CARDONA DO) Review of Systems Review of Systems Constitutional: chills, fever, malaise, weakness Respiratory: Denies Cough, Denies Shortness of Air Cardiovascular: Denies Chest Pain, Denies Irregular Heart Rate Gastrointestinal: Abdominal Pain; Denies Constipated, Denies Diarrhea; Nausea, Vomiting Genitourinary: No Symptoms Reported Musculoskeletal: no symptoms reported Skin: no symptoms reported Psychiatric/Neurological: No Symptoms Reported Endocrine: No Symptoms Reported Hematologic/Lymphatic: No Symptoms Reported (KING CARDONA DO) Past Kihxdyn-Jknfzp-Ujdpjf Hx Past Med/Social Hx: Reviewed Nursing Past Med/Soc Hx (KING CARDONA DO) Patient Social History Former Smoker, Quit: Apr 16, 1976 2nd Hand Smoke Exposure: No Recent Hopitalizations: No (KING CARDONA DO) Immunizations Up To Date Tetanus Booster (TDap): More than 5yrs PED Vaccines UTD: Yes Date of Pneumonia Vaccine: Apr 16, 2012 Date of Influenza Vaccine: Nov 19, 2017 (KING CARDONA DO) Seasonal Allergies Seasonal Allergies: No (KING CARDONA DO) Past Medical History Surgeries: Yes ( tongue surgery;cyst on spine tailbone;SKIN CA;TURP;PROSTATECTOMY 04/17/19 ) Cardiac, Coronary Stent, Prostatectomy, Thyroidectomy Respiratory: No Cardiac: Yes (STENTS X4, LAST ONE 2013, "ABOUT 8" HEART ATTACKS PRIOR TO STENTS ) Heart Attack, High Cholesterol, Hypertension Neurological: No Sexually Transmitted Disease: No HIV/AIDS: No Genitourinary: Yes (TURP; PROSTATECTOMY 04/17/19 AT ) Prostate Problems Gastrointestinal: No Musculoskeletal: Yes Arthritis Endocrine: Yes Diabetes, Non-Insulin dep HEENT: Yes (GLASSES) Loss of Vision: Bilateral Hearing Impairment: Denies Cancer: Yes (TONGUE) Prostate, Skin Did You Recieve Any Treatments: Yes What Type of Treatment Did You: Radiation, Surgical Intervention Psychosocial: Yes Sleep Difficulties Integumentary: No Blood Disorders: No Adverse Reaction/Blood Tranf: No (N/A) (CARDONA,KING L DO) Physical Exam Vital Signs Vital Signs - First Documented 03/23/20 03/23/20 16:12 16:15 Temp 38.2 Pulse 106 Resp 16 B/P (MAP) 160/69 (99) Pulse Ox 94 O2 Delivery Room Air O2 Flow Rate 2.00 (JENNIFER HALL MD) Vital Signs Capillary Refill : (KING CARDONA DO) Height/Weight/BMI Height: 5'8.00" Weight: 220lbs. 0.0oz. 99.960456sq; 33.00 BMI Method:Stated General Appearance: mild distress, other (Febrile) HEENT: PERRL/EOMI Respiratory: lungs clear, normal breath sounds Gastrointestinal: soft, tenderness (Diffuse) Back: no CVA tenderness Neurologic/Psychiatric: alert, normal mood/affect, oriented x 3 Skin: normal color, warm/dry (KING CARDONA DO) Focused Exam Lactate Level 03/23/20 16:25: Lactic Acid Level 3.08*H (JENNIFER HALL MD) Lactic Acid Level Laboratory Tests Test 03/23/20 16:25 Lactic Acid Level 3.08 MMOL/L (0.50-2.00) *H (JENNIFER HALL MD) Progress/Results/Core Measures Results/Orders Lab Results Laboratory Tests Test 03/23/20 16:20 03/23/20 16:25 03/23/20 16:30 03/23/20 18:25 Range/Units White Blood Count 2.4 L 4.3-11.0 10^3/uL Red Blood Count 4.33 4.30-5.52 10^6/uL Hemoglobin 12.0 L 13.3-17.7 g/dL Hematocrit 37 L 40-54 % Mean Corpuscular Volume 85 80-99 fL Mean Corpuscular Hemoglobin 28 25-34 pg Mean Corpuscular Hemoglobin Concent 33 32-36 g/dL Red Cell Distribution Width 13.9 10.0-14.5 % Platelet Count 184 130-400 10^3/uL Mean Platelet Volume 9.9 9.0-12.2 fL Immature Granulocyte % (Auto) 0 % Neutrophils (%) (Auto) 91 H 42-75 % Lymphocytes (%) (Auto) 7 L 12-44 % Monocytes (%) (Auto) 0 0-12 % Eosinophils (%) (Auto) 0 0-10 % Basophils (%) (Auto) 0 0-10 % Neutrophils # (Auto) 2.2 1.8-7.8 10^3/uL Lymphocytes # (Auto) 0.2 L 1.0-4.0 10^3/uL Monocytes # (Auto) 0.0 0.0-1.0 10^3/uL Eosinophils # (Auto) 0.0 0.0-0.3 10^3/uL Basophils # (Auto) 0.0 0.0-0.1 10^3/uL Immature Granulocyte # (Auto) 0.0 0.0-0.1 10^3/uL Neutrophils % (Manual) 86 % Lymphocytes % (Manual) 12 % Eosinophils % (Manual) 2 % Toxic Granulation 3+ [place] Cells SLIGHT Prothrombin Time 15.3 H 12.2-14.7 SEC INR Comment 1.2 0.8-1.4 Activated Partial Thromboplast Time 29 24-35 SEC Sodium Level 137 135-145 MMOL/L Potassium Level 3.7 3.6-5.0 MMOL/L Chloride Level 98 98-107 MMOL/L Carbon Dioxide Level 24 21-32 MMOL/L Anion Gap 15 H 5-14 MMOL/L Blood Urea Nitrogen 14 7-18 MG/DL Creatinine 1.07 0.60-1.30 MG/DL Estimat Glomerular Filtration Rate > 60 BUN/Creatinine Ratio 13 Glucose Level 136 H 70-105 MG/DL Calcium Level 9.3 8.5-10.1 MG/DL Corrected Calcium 9.2 8.5-10.1 MG/DL Total Bilirubin 1.1 H 0.1-1.0 MG/DL Aspartate Amino Transf (AST/SGOT) 25 5-34 U/L Alanine Aminotransferase (ALT/SGPT) 45 0-55 U/L Alkaline Phosphatase 91 40-136 U/L C-Reactive Protein High Sensitivity 23.83 H 0.00-0.50 MG/DL Total Protein 7.6 6.4-8.2 GM/DL Albumin 4.1 3.2-4.5 GM/DL Lipase 19 8-78 U/L Procalcitonin 1.25 H <0.10 NG/ML Lactic Acid Level 3.08 *H 0.50-2.00 MMOL/L Coronavirus 2019 (BRENDA) Positive H Negative Urine Color YELLOW Urine Clarity CLEAR Urine pH 5.0 5-9 Urine Specific [place] <=1.005 1.016-1.022 Urine Protein NEGATIVE NEGATIVE Urine Glucose (UA) NEGATIVE NEGATIVE Urine Ketones NEGATIVE NEGATIVE Urine Nitrite NEGATIVE NEGATIVE Urine Bilirubin NEGATIVE NEGATIVE Urine Urobilinogen 0.2 < = 1.0 MG/DL Urine Leukocyte Esterase NEGATIVE NEGATIVE Urine RBC (Auto) TRACE-I NEGATIVE Urine RBC NONE /HPF Urine WBC RARE /HPF Urine Squamous Epithelial Cells RARE /HPF Urine Crystals PRESENT H /LPF Urine Amorphous Sediment MOD VICENTE URATES H /LPF Urine Bacteria TRACE /HPF Urine Casts NONE /LPF Urine Mucus NEGATIVE /LPF Urine Culture Indicated CULTURE PENDING (JENNIFER HALL MD) Micro Results Microbiology 03/23/20 Influenza Types A,B Antigen ([facility]) - Final, Complete (JENNIFER HALL MD) My Orders Orders - JENNIFER HALL MD Acetaminophen Tablet (Tylenol Tablet) (03/23/20 18:29) Acetaminophen Tablet (Tylenol Tablet) (03/23/20 18:27) Ceftriaxone For Iv Use (Rocephin For I (03/23/20 18:57) (JENNIFER HALL MD) Medications Given in ED Current Medications Medications Dose Ordered Sig/Michelle Route Start Time Stop Time Status Last Admin Dose Admin Dexamethasone Sodium Phosphate 10 mg ONCE ONCE IV 03/23/20 17:30 03/23/20 17:31 DC 03/23/20 18:08 10 MG Iohexol 100 ml ONCE ONCE IV 03/23/20 17:45 03/23/20 17:52 DC 03/23/20 17:52 100 ML Ondansetron HCl 4 mg ONCE ONCE IVP 03/23/20 16:15 03/23/20 16:19 DC 03/23/20 16:31 4 MG Sodium Chloride 100 ml ONCE ONCE IV 03/23/20 17:45 03/23/20 17:52 DC 03/23/20 17:52 80 ML (JENNIFER HALL MD) Vital Signs/I&O 03/23/20 03/23/20 16:12 16:15 Temp 38.2 Pulse 106 Resp 16 B/P (MAP) 160/69 (99) Pulse Ox 94 95 O2 Delivery Room Air Nasal Cannula O2 Flow Rate 2.00 (JENNIFER HALL MD) Progress Progress Note : Progress Note 1800: Assumed care of the patient pending CT results. 1810: Unable to obtain UA. Patient too weak to stand and will likely be admitted due to elevated lactic acid, CRP and procalcitonin in the setting of COVID-19. [place] catheter ordered to obtain UA. 1830: Patient's temperature 102.5 F. Tylenol [address] concerning for possible pyelonephritis. Pending UA. 1856: UA shows rare whites and rare bacteria on cath sample. CT concerning for possible bilateral pyelonephritis and cystitis. We will go ahead and initiate Rocephin 1 g IV. Patient is really too weak to stand currently but blood pressure, heart rate and oxygen saturations are in normal range. Lactic acid elevation likely related to diarrhea and not severe sepsis or septic shock. All of this likely secondary to underlying COVID-19 infection. Patient to be admitted. We will continue IV antibiotics till cultures are noted and we will continue gentle IV fluid currently. Patient agrees to plan. (JENNIFER HALL MD) Diagnostic Imaging Diagonstic Imaging: Xray Plain Films/CT/US/NM/MRI: chest Comments [facility]. [place], [place] NAME: AMBER LAINEZ [facility] REC#: [id number] PT STATUS: REG ER : 1945 PHYSICIAN: KING CARDONA DO ADMIT DATE: 03/23/20/ER Draft Date of Exam:03/23/20 ACUTE ABD SERIES EXAMINATION: Abdominal series and chest radiograph HISTORY: Abdominal pain. COMPARISON: None available. FINDINGS: Bowel gas pattern is normal. No free air is seen. The lungs are clear. No edema. No pneumonia. No pleural effusion. No pneumothorax. Heart is normal in size. Right pelvic sclerotic lesion is unchanged from recent pelvic radiograph dated 02/08/2020. IMPRESSION: 1. Clear lungs. 2. Normal bowel gas pattern. Dictated on workstation # [id number] Dict: 03/23/20 1733 Trans: 03/23/20 1735 [id number] Interpreted by: SINDY LUCIO MD Electronically signed by: Reviewed: Reviewed by Me, Reviewed/Discussed (CARDONA,KING L DO) Diagonstic Imaging: CT Plain Films/CT/US/NM/MRI: abdomen, pelvis Comments [facility]. [place], [place] NAME: AMBER LAINEZ [facility] REC#: [id number] PT STATUS: REG ER : 1945 PHYSICIAN: KING CARDONA DO ADMIT DATE: 03/23/20/ER Draft Date of Exam:03/23/20 CT ABDOMEN/PELVIS W PROCEDURE: CT abdomen and pelvis with contrast. TECHNIQUE: Multiple contiguous axial images were obtained through the abdomen and pelvis after administration of intravenous contrast. Auto Exposure Controls were utilized during the CT exam to meet ALARA standards for radiation dose reduction. All CT scans use one or more of the following dose optimizing techniques: automated exposure control, MA and/or KvP adjustment based on patient size and exam type or iterative reconstruction. INDICATION: COVID positive. Weakness, fever, history of prostate cancer. EXAMINATION: CT abdomen and pelvis with contrast from 03/23/2020 FINDINGS: There is diffuse wall thickening and loss of normal haustra throughout the distal colon suggesting diffuse colitis. Appendix is normal. No obstructive process is seen. The liver demonstrate fatty infiltration with a few areas of calcified granulomata. The gallbladder is normal. The spleen unremarkable. There is fat stranding about both kidneys with tiny hypodensities in the kidneys too small for characterization but others in a distribution suggestive of pyelonephritis. Clinical follow-up recommended to exclude a process such as lymphoma which can have a similar appearance. There is a small nodule subcentimeter in nature within the left adrenal gland which could be followed to assure stability. Right adrenal gland is unremarkable. There is a small hiatal hernia. Pancreas is atrophied. Urinary bladder wall is thickened which could be due to incomplete distention versus cystitis. The lung bases appear unremarkable. There are chronic changes throughout the osseous structures. There is a sclerotic lesion within the right ilium which is nonspecific and could represent a bone island. Given the history of prostate carcinoma, metastatic process is difficult to exclude. IMPRESSION: 1. Findings of diffuse colitis 2. Possible cystitis and bilateral pyelonephritis. See above discussion. 3. Sclerotic lesion right ilium which is indeterminate; see above description. Other findings as above. Dictated on workstation # [id number] Dict: 03/23/20 1756 Trans: 03/23/20 1805 [id number] [id number] Interpreted by: GIL ANAYA MD Electronically signed by: (JENNIFER HALL MD) Departure Communication (Admissions) Time/Spoke to Admitting Phy: 18:56 (JENNIFER HALL MD) Impression Primary Impression: COVID-19 Additional Impression: Urinary tract infection Qualified Codes: N30.00 - Acute cystitis without hematuria Disposition: ADMITTED INPATIENT Condition: Stable Admissions Decision to Admit Reason: Admit from ER (General) Decision to Admit/Date: Mar 23, 2020 Time/Decision to Admit Time: 18:56 (JENNIFER HALL MD) Departure-Patient Inst. Referrals: DINO BROWN DO (PCP/Family) Primary Care Physician KING CARDONA DO Mar 23, 2020 16:15 JENNIFER HALL MD Mar 23, 2020 18:32
[2020-03-23 16:27] LABS: BASOPHILS % (AUTO) 0 % (0-10); EOSINOPHILS % (AUTO) 0 % (0-10); HEMATOCRIT 37 % (40-54); LYMPHOCYTES # (AUTO) 0.2 10^3/uL (1.0-4.0); LYMPHOCYTES % (AUTO) 7 % (12-44); MEAN CORPUSCULAR HEMOGLOBIN 28 pg (25-34); MEAN CORPUSCULAR HGB CONC 33 g/dL (32-36); MEAN CORPUSCULAR VOLUME 85 fL (80-99); MEAN PLATELET VOLUME 9.9 fL (9.0-12.2); MONOCYTES % (AUTO) 0 % (0-12); NEUTROPHILS # (AUTO) 2.2 10^3/uL (1.8-7.8); NEUTROPHILS % (AUTO) 91 % (42-75); PLATELET COUNT 184 10^3/uL (130-400); WHITE BLOOD COUNT 2.4 10^3/uL (4.3-11.0)
[2020-03-23 16:38] LABS: ALBUMIN 4.1 GM/DL (3.2-4.5); CHLORIDE 98 MMOL/L (98-107); POTASSIUM 3.7 MMOL/L (3.6-5.0); SODIUM 137 MMOL/L (135-145)
[2020-03-23 16:39] LABS: INR 1.2 (0.8-1.4); PROTHROMBIN TIME PATIENT 15.3 SEC (12.2-14.7)
[2020-03-23 16:40] LABS: CALCIUM 9.3 MG/DL (8.5-10.1)
[2020-03-23 16:41] LABS: GLUCOSE 136 MG/DL (70-105); TOTAL PROTEIN 7.6 GM/DL (6.4-8.2)
[2020-03-23 16:42] LABS: BILIRUBIN,TOTAL 1.1 MG/DL (0.1-1.0); CARBON DIOXIDE 24 MMOL/L (21-32)
[2020-03-23 16:44] LABS: ALKALINE PHOSPHATASE 91 U/L (40-136); CREATININE SERUM 1.07 MG/DL (0.60-1.30); GFR ESTIMATED > 60
[2020-03-23 16:45] LABS: BUN/CREATININE RATIO 13
[2020-03-23 16:47] LABS: ALANINE AMINOTRANSFERASE 45 U/L (0-55)
[2020-03-23 16:48] LABS: LIPASE 19 U/L (8-78)
[2020-03-23 16:56] LABS: BURR CELLS SLIGHT; EOSINOPHILS % (MANUAL) 2 %; LYMPHOCYTES % (MANUAL) 12 %; NEUTROPHILS % (MANUAL) 86 %; TOXIC GRANULATION/VACUOLAZATIO 3+
--- NOTE | 2020-03-23 17:35 | Diagnostic Imaging Report ---
EXAMINATION: Abdominal series and chest radiograph HISTORY: Abdominal pain. COMPARISON: None available. FINDINGS: Bowel gas pattern is normal. No free air is seen. The lungs are clear. No edema. No pneumonia. No pleural effusion. No pneumothorax. Heart is normal in size. Right pelvic sclerotic lesion is unchanged from recent pelvic radiograph dated 02/08/2020. IMPRESSION: 1. Clear lungs. 2. Normal bowel gas pattern. Dictated by: Dictated on workstation # [id number]
[2020-03-23] MEDS ORDERED: HOLD METFORMIN - RECEIVED CONTRAST 20 ML VIAL IV SCH (17:45)
[2020-03-23] MEDS ORDERED: NS 100 ML (IVPB) BAG IV ONE (17:45)
[2020-03-23] MEDS ORDERED: IOHEXOL 350 MG/ML 100 ML (OMNIPAQUE 350) VIAL IV ONE (17:45)
--- NOTE | 2020-03-23 18:06 | Diagnostic Imaging Report ---
PROCEDURE: CT abdomen and pelvis with contrast. TECHNIQUE: Multiple contiguous axial images were obtained through the abdomen and pelvis after administration of intravenous contrast. Auto Exposure Controls were utilized during the CT exam to meet ALARA standards for radiation dose reduction. All CT scans use one or more of the following dose optimizing techniques: automated exposure control, MA and/or KvP adjustment based on patient size and exam type or iterative reconstruction. INDICATION: COVID positive. Weakness, fever, history of prostate cancer. EXAMINATION: CT abdomen and pelvis with contrast from 03/23/2020 FINDINGS: There is diffuse wall thickening and loss of normal haustra throughout the distal colon suggesting diffuse colitis. Appendix is normal. No obstructive process is seen. The liver demonstrate fatty infiltration with a few areas of calcified granulomata. The gallbladder is normal. The spleen unremarkable. There is fat stranding about both kidneys with tiny hypodensities in the kidneys too small for characterization but others in a distribution suggestive of pyelonephritis. Clinical follow-up recommended to exclude a process such as lymphoma which can have a similar appearance. There is a small nodule subcentimeter in nature within the left adrenal gland which could be followed to assure stability. Right adrenal gland is unremarkable. There is a small hiatal hernia. Pancreas is atrophied. Urinary bladder wall is thickened which could be due to incomplete distention versus cystitis. The lung bases appear unremarkable. There are chronic changes throughout the osseous structures. There is a sclerotic lesion within the right ilium which is nonspecific and could represent a bone island. Given the history of prostate carcinoma, metastatic process is difficult to exclude. IMPRESSION: 1. Findings of diffuse colitis 2. Possible cystitis and bilateral pyelonephritis. See above discussion. 3. Sclerotic lesion right ilium which is indeterminate; see above description. Other findings as above. Dictated by: Dictated on workstation # [id number]
[2020-03-23] MEDS ORDERED: ACETAMINOPHEN 500 MG TAB (TYLENOL) ONE (18:27)
[2020-03-23] MEDS ORDERED: ACETAMINOPHEN 500 MG TAB (TYLENOL) PO STA (18:29)
[2020-03-23 18:34] LABS: BILIRUBIN,URINE NEGATIVE (NEGATIVE); CLARITY,URINE CLEAR; COLOR,URINE YELLOW; GLUCOSE, URINE (UA) NEGATIVE (NEGATIVE); KETONES,URINE NEGATIVE (NEGATIVE); LEUKOCYTE ESTERASE ,URINE NEGATIVE (NEGATIVE); NITRITE,URINE NEGATIVE (NEGATIVE); PROTEIN,URINE NEGATIVE (NEGATIVE)
[2020-03-23 18:41] LABS: WBC,URINE RARE /HPF
[2020-03-23 18:42] LABS: AMORPHOUS SEDIMENT,UR MOD AMOR URATES /LPF; BACTERIA,URINE TRACE /HPF; SQUAMOUS EPITHELIAL CELL,UR RARE /HPF
[2020-03-23] MEDS ORDERED: cefTRIAXone FOR IV USE 1,000 MG in WATER (STERILE) FOR INJECTION 10 ML IV STA (18:57)
[2020-03-23] MEDS ORDERED: cefTRIAXone 1,000 MG IV (ROCEPHIN) VIAL ONE (19:30)
[2020-03-23] MEDS ORDERED: WATER (STERILE) FOR INJECTION 10 ML ONE (19:30)
[2020-03-23] MEDS ORDERED: LACTATED RINGERS 1,000 ML IV ONE (20:26)
[2020-03-23 20:37] VITALS: BP 129/75
[2020-03-23] MEDS ORDERED: ONDANSETRON 4 MG/2 ML (SDV) Z0FRAN IV PRN (21:45)
[2020-03-23] MEDS ORDERED: IBUPROFEN 600 MG (MOTRIN) TAB PO PRN (21:45)
[2020-03-23] MEDS: LACTATED RINGERS 1,000 ML IV SCH (22:29)
[2020-03-23 23:52] VITALS: BP 88/54
[2020-03-24 02:34] LABS: BASOPHILS % (AUTO) 0 % (0-10); EOSINOPHILS % (AUTO) 0 % (0-10); HEMATOCRIT 29 % (40-54); HEMOGLOBIN 9.7 g/dL (13.3-17.7); LYMPHOCYTES # (AUTO) 0.3 10^3/uL (1.0-4.0); LYMPHOCYTES % (AUTO) 2 % (12-44); MEAN CORPUSCULAR HEMOGLOBIN 28 pg (25-34); MEAN CORPUSCULAR HGB CONC 33 g/dL (32-36); MEAN CORPUSCULAR VOLUME 85 fL (80-99); MEAN PLATELET VOLUME 10.7 fL (9.0-12.2); MONOCYTES # (AUTO) 0.4 10^3/uL (0.0-1.0); MONOCYTES % (AUTO) 3 % (0-12); NEUTROPHILS # (AUTO) 13.3 10^3/uL (1.8-7.8); NEUTROPHILS % (AUTO) 93 % (42-75); PLATELET COUNT 188 10^3/uL (130-400); WHITE BLOOD COUNT 14.3 10^3/uL (4.3-11.0)
[2020-03-24 02:47] LABS: ALBUMIN 3.3 GM/DL (3.2-4.5); POTASSIUM 3.5 MMOL/L (3.6-5.0)
[2020-03-24 02:48] LABS: CALCIUM 8.1 MG/DL (8.5-10.1)
[2020-03-24 02:49] LABS: TOTAL PROTEIN 5.9 GM/DL (6.4-8.2)
[2020-03-24 02:51] LABS: BILIRUBIN,TOTAL 0.9 MG/DL (0.1-1.0)
[2020-03-24 02:53] LABS: CREATININE SERUM 1.23 MG/DL (0.60-1.30)
[2020-03-24 03:08] LABS: BAND NEUTROPHILS 19 %; LYMPHOCYTES % (MANUAL) 1 %; MONOCYTES % (MANUAL) 3 %; NEUTROPHILS % (MANUAL) 77 %
[2020-03-24 03:09] LABS: RBC MORPH NORMAL; TOXIC GRANULATION/VACUOLAZATIO 4+
[2020-03-24 04:00] VITALS: BP 102/61
[2020-03-24 05:27] VITALS: BP 102/61
[2020-03-24] MEDS: LACTATED RINGERS 1,000 ML IV SCH ×3 (05:32→20:26)
[2020-03-24] MEDS ORDERED: LACTATED RINGERS 1,000 ML IV SCH (06:00)
[2020-03-24] MEDS ORDERED: CATHETER FLUSH 10 ML SYR IV PRN (06:45)
[2020-03-24 08:00] VITALS: BP 123/59
[2020-03-24] MEDS ORDERED: IMIP25TA4 PO (10:46)
[2020-03-24] MEDS ORDERED: ASPI-1238 PO (10:46)
--- NOTE | 2020-03-24 11:02 | Physical Therapy Evaluation ---
PT Evaluation-General Medical Diagnosis Admission Date Mar 23, 2020 at 19:00 Medical Diagnosis: UTI, covid 19 Onset Date: Mar 23, 2020 Therapy Diagnosis Therapy Diagnosis: normal functional mobility Height/Weight Height (Feet): 5 Height (Inches): 8.00 Weight (Pounds): 220 Weight (Ounces): 0.0 Precautions Precautions/Isolations: Contact Isolation, Droplet Isolation, Fall Prevention Referral Physician: Rios Reason for Referral: Evaluation/Treatment Medical History Additional Medical History Past Medical History Surgeries: Yes ( tongue surgery;cyst on spine tailbone;SKIN CA;TURP;PROSTATECTOMY 04/17/19 ) Cardiac, Coronary Stent, Prostatectomy, Thyroidectomy Respiratory: No Cardiac: Yes (STENTS X4, LAST ONE 2013, "ABOUT 8" HEART ATTACKS PRIOR TO STENTS ) Heart Attack, High Cholesterol, Hypertension Neurological: No Sexually Transmitted Disease: No HIV/AIDS: No Genitourinary: Yes (TURP; PROSTATECTOMY 04/17/19 AT ) Prostate Problems Gastrointestinal: No Musculoskeletal: Yes Arthritis Endocrine: Yes Diabetes, Non-Insulin dep HEENT: Yes (GLASSES) Loss of Vision: Bilateral Hearing Impairment: Denies Cancer: Yes (TONGUE) Prostate, Skin Did You Recieve Any Treatments: Yes What Type of Treatment Did You: Radiation, Surgical Intervention Psychosocial: Yes Sleep Difficulties Integumentary: No Blood Disorders: No Reviewed History: Yes Social History Home: Single Level Current Living Status: Spouse Entry Into Home: Stairs With Railing PT Steps Into Home: 2 2 steps from the garage, 5 in the front Prior Prior Level of Function SCALE: Activities may be completed with or without assistive devices. 3-Mmxvyvbwvj-kogoqfv completes the activity by him/herself with no assistance from a helper. 5-Set-up or Clean-up Assistance-helper sets up or cleans up; patient completes activity. [place] assists only prior to or following the activity. 4-Supervision or Touching Assistance-helper provides verbal cues and/or touching/steadying and/or contact guard assistance as patient completes activity. Assistance may be provided throughout the activity or intermittently. 3-Partial/Moderate Assistance-helper does LESS THAN HALF the effort. [place] lifts, holds or supports trunk or limbs, but provides less than half the effort. 2-Substantial/Maximal Assistance-helper does MORE THAN HALF the effort. [place] lifts or holds trunk or limbs and provides more than half the effort. 0-Qdbcpgimx-qjnzpo does ALL the effort. Patient does none of the effort to complete the activity. Or, the assistance of 2 or more helpers is required for the patient to complete the activity. If activity was not attempted, code reason: 7-Patient Refused. 9-Not Applicable-not attempted and the patient did not perform the activity before the current illness, exacerbation or injury. 10-Not Attempted due to Environmental Limitations-(lack of equipment, weather restraints, etc.). 88-Not Attempted due to Medical Conditions or Safety Concerns. Bed Mobility: 6 Transfers (B,C,W/C): 6 Gait: 6 Stairs: 6 Indoor Mobility (Ambulation): Independent Stairs: Independent PT Evaluation-Current Subjective Patient in recliner pre tx, agrees to PT, has no complaints of pain. Pt/Family Goals "to go home" Objective Patient Orientation: Person, Place, Situation Attachments: IV ROM/Strength ROM Lower Extremities WNL Strength Lower Extremities LLE (hip flexion 4+/5, knee flexion 5/5, knee extension 5/5, dorsiflexion 5/5), RLE (hip flexion 4+/5, knee flexion 5/5, knee extension 5/5, dorsiflexion 5/5) Sensory Hearing: Functional Sensation Right Lower Extremit: Intact Sensation Left Lower Extremity: Intact Transfers Sit to Stand (QC): 6 Chair/Csj-cp-Hosfj Xfer(QC): 6 Gait Does the Patient Walk?: Yes Mode of Locomotion: Walk Anticipated Mode of Locomotion: Walk Walk 10 feet (QC): 6 Walk 50 ft with 2 Turns(QC): 6 Gait Assistive Device: None Comments/Gait Description Patient ambulates to the doorway and back to recliner twice in his room, no difficulty or unsteadiness with ambulation, no AD Balance Sitting Static: Normal Sitting Dynamic: Normal Standing Static: Normal Standing Dynamic: Normal Assessment/Needs Patient has normal functional mobility. Patient states he doesn't feel unsteady with ambulation and is getting around well in his room. Patient will be discharged at this time. Instructed patient if he gets weak or starts having difficulty getting around his room to let his nurse know and we can perform another eval. Rehab Potential: Good PT Plan Treatment/Plan Treatment Plan: Discontinue PT Treatment Plan: Other Treatment Duration: Mar 24, 2020 Frequency: Estimated Hrs Per Day: Other Patient and/or Family Agrees t: Yes Safety Risks/Education Patient Education: Gait Training, Transfer Techniques, Correct Positioning, Safety Issues Teaching Recipient: Patient Teaching Methods: Demonstration, Discussion Response to Teaching: Reinforcement Needed Discharge Recommendations Plan DC Therapy Discharge Recommendati: Home & Family Time/GCodes Time In: 1032 Time Out: 1041 Total Billed Treatment Time: 9 Total Billed Treatment 1 visit EVL 9' JULIET ALANIZ PT Mar 24, 2020 11:02
[2020-03-24 12:00] VITALS: BP 125/58
--- NOTE | 2020-03-24 12:31 | History & Physical-Hospitalist ---
History of Present Illness HPI/Chief Complaint Pt is a 74yoCM with a PMH of NIDDMII, HTN, HLD who presented to the ER due to abdominal pain and weakness. He states that his symptoms started 6 days ago and he was tested for COVID 4 days ago. That test was negative but he continued to feel very tired and weak and was unable to get out of bed for the next few days. His eventually called the ambulance to bring him in for evaluation because he could not even stand. He states he's had nausea and vomiting along with his abdominal pain. He has lost 13 pounds in this timeframe. He denies loss of taste but does have loss of appetite. He denies diarrhea. He was tested for COVID and was positive. A CT scan was of his abdominal was done as well and revealed pyelonephritis. This morning he reports feeling much better. He was able to eat some breakfast. He would like his catheter out. Source: patient Exam Limitations: no limitations Date Seen 03/24/20 Time Seen by a Provider: 08:45 Attending Physician Mounika Nation MD PCP Dino Brown DO Referring Physician Date of Admission Mar 23, 2020 at 19:00 Home Medications & Allergies Home Medications Reviewed patient Home Medication Reconciliation performed by pharmacy medication reconciliations investment recovery technician and/or nursing. Patients Allergies have been reviewed. Allergies Allergies Coded Allergies No Known Drug Allergies (Unverified02/22/18) Past Tjsbhxs-Gtfznu-Rvltaw Hx Past Med/Social Hx: Reviewed Nursing Past Med/Soc Hx Patient Social History Alcohol Use: Denies Use Recreational Drug Use: No Smoking Status: Former Smoker Former Smoker, Quit: Apr 16, 1976 2nd Hand Smoke Exposure: No Recent Foreign Travel: No Contact w/other who traveled: No Recent Hopitalizations: No Recent Infectious Disease Expo: No Immunizations Up To Date Tetanus Booster (TDap): More than 5yrs Pediatric: Yes Date of Pneumonia Vaccine: Apr 16, 2012 Date of Influenza Vaccine: Nov 19, 2017 Seasonal Allergies Seasonal Allergies: No Past Medical History Surgeries: Cardiac, Coronary Stent, Prostatectomy, Thyroidectomy Cardiac: Heart Attack, High Cholesterol, Hypertension Sexually Transmitted Disease: No HIV/AIDS: No Genitourinary: Prostate Problems Musculoskeletal: Arthritis Endocrine: Diabetes, Non-Insulin dep Loss of Vision: Bilateral Hearing Impairment: Denies Cancer: Prostate, Skin Did You Recieve Any Treatments: Yes What Type of Treatment Did You: Radiation, Surgical Intervention Psychosocial: Sleep Difficulties History of Blood Disorders: No Adverse Reaction to Blood Wiley: No (N/A) Review of Systems Constitutional: fever, malaise, weakness EENTM: no symptoms reported Respiratory: No cough, No dyspnea on exertion, No phlegm, No short of breath Cardiovascular: No chest pain, No edema Gastrointestinal: see HPI, abdominal pain; No constipation, No diarrhea; loss of appetite, nausea, vomiting Genitourinary: no symptoms reported Musculoskeletal: muscle weakness Skin: no symptoms reported Psychiatric/Neurological: No Symptoms Reported Physical Exam Physical Exam Vital Signs Vital Signs - First Documented 03/23/20 03/23/20 16:12 16:15 Temp 38.2 Pulse 106 Resp 16 B/P (MAP) 160/69 (99) Pulse Ox 94 O2 Delivery Room Air O2 Flow Rate 2.00 Capillary Refill : Less Than 3 SecondsLess Than 3 Seconds Height, Weight, BMI Height: 5'8.00" Weight: 220lbs. 0.0oz. 99.686279yt; 53.93 BMI Method:Stated General Appearance: No Apparent Distress, WD/WN HEENT: PERRL/EOMI, Moist Mucous Membranes; No Scleral Icterus (L), No Scleral Icterus (R) Neck: Normal Inspection, Supple Respiratory: Lungs Clear, No Accessory Muscle Use, No Respiratory Distress Cardiovascular: Regular Rate, Rhythm, No Edema, No Murmur Gastrointestinal: Normal Bowel Sounds, Non Tender, Soft Genital/Rectal: Other (ramirez in place) Extremity: Normal Capillary Refill, No Calf Tenderness, No Pedal Edema Neurologic/Psychiatric: Alert, Oriented x3, Normal Mood/Affect Skin: Normal Color, Warm/Dry Results Results/Procedures Labs Laboratory Tests 03/23/20 16:20 03/24/20 02:20 Patient resulted labs reviewed. Imaging: Reviewed Imaging Report Imaging [facility], [place] NAME: AMBER LAINEZ MED REC#: [id number] PT STATUS: ADM IN : 1945 PHYSICIAN: KING CARDONA DO ADMIT DATE: 03/23/20/ Signed Date of Exam:03/23/20 CT ABDOMEN/PELVIS W PROCEDURE: CT abdomen and pelvis with contrast. TECHNIQUE: Multiple contiguous axial images were obtained through the abdomen and pelvis after administration of intravenous contrast. Auto Exposure Controls were utilized during the CT exam to meet ALARA standards for radiation dose reduction. All CT scans use one or more of the following dose optimizing techniques: automated exposure control, MA and/or KvP adjustment based on patient size and exam type or iterative reconstruction. INDICATION: COVID positive. Weakness, fever, history of prostate cancer. EXAMINATION: CT abdomen and pelvis with contrast from 03/23/2020 FINDINGS: There is diffuse wall thickening and loss of normal haustra throughout the distal colon suggesting diffuse colitis. Appendix is normal. No obstructive process is seen. The liver demonstrate fatty infiltration with a few areas of calcified granulomata. The gallbladder is normal. The spleen unremarkable. There is fat stranding about both kidneys with tiny hypodensities in the kidneys too small for characterization but others in a distribution suggestive of pyelonephritis. Clinical follow-up recommended to exclude a process such as lymphoma which can have a similar appearance. There is a small nodule subcentimeter in nature within the left adrenal gland which could be followed to assure stability. Right adrenal gland is unremarkable. There is a small hiatal hernia. Pancreas is atrophied. Urinary bladder wall is thickened which could be due to incomplete distention versus cystitis. The lung bases appear unremarkable. There are chronic changes throughout the osseous structures. There is a sclerotic lesion within the right ilium which is nonspecific and could represent a bone island. Given the history of prostate carcinoma, metastatic process is difficult to exclude. IMPRESSION: 1. Findings of diffuse colitis 2. Possible cystitis and bilateral pyelonephritis. See above discussion. 3. Sclerotic lesion right ilium which is indeterminate; see above description. Other findings as above. Dictated by: Dictated on workstation # [id number] Dict: 03/23/20 1756 Trans: 03/23/20 2144 ARTURO [id number] Interpreted by: GIL ANAYA MD Electronically signed by: GIL ANAYA MD 03/23/209 Assessment/Plan Admission Diagnosis Sepsis due to UTI Admission Status: Inpatient Order (span 2 midnights) Reason for Inpatient Admission: see below Assessment and Plan Severe Sepsis due to UTI gram negative suze bacteremia CT consistent with pyelonephritis Continue on Rocephin Cultures growing gram negative rods in all bottles persistent lactic acidosis likely due to Metformin COVID19 Not hypoxic so no indication for decadron, remdesivir, or convalescent plasma Monitor for progression closely as is on day 6 of symptoms HTN HLD Blood pressure well controlled to even somewhat soft overnight, trend Resume home meds NIDDMII Hold metformin DVT ppx: Lovenox Diagnosis/Problems Diagnosis/Problems (1) Severe sepsis (2) Gram-negative bacteremia (3) COVID-19 Status: Acute (4) Urinary tract infection Status: Acute Qualifiers: Urinary tract infection type: acute cystitis Hematuria presence: without hematuria Qualified Codes: N30.00 - Acute cystitis without hematuria (5) Hypertension (6) HLD (hyperlipidemia) (7) Non-insulin dependent type 2 diabetes mellitus (8) CAD (coronary artery disease) Copy Copies To 1: DINO BROWN KATELYN M MD Mar 24, 2020 12:31
[2020-03-24] MEDS ORDERED: IMIPRAMINE 25 MG (TOFRANIL) TAB PO SCH (13:00)
[2020-03-24] MEDS ORDERED: NS IV 1000 ML 1,000 ML IV SCH (14:15)
[2020-03-24 16:01] VITALS: BP 122/60
[2020-03-24] MEDS: QUEtiapine 200 MG (SEROquel) TAB IMMEDIATE RELEASE PO SCH (20:26)
[2020-03-24] MEDS: SIMvastatin 10 MG (ZOCOR) TAB PO SCH (20:26)
[2020-03-24] MEDS: OMEGA 3 (FISH OIL) 1000 MG CAP PO SCH (20:26)
[2020-03-24] MEDS ORDERED: NON-FORMULARY MEDICATION 1 EA EA (Lovastatin 20 MG) PO SCH (21:00)
[2020-03-24] MEDS ORDERED: ATENOLOL 50 MG (TENORMIN) TAB PO SCH (21:00)
[2020-03-24] MEDS ORDERED: lisINopril 20 MG (PRINIVIL) TABLET PO SCH (21:00)
[2020-03-24 21:05] VITALS: BP 105/61
[2020-03-25] VITALS (7 sets, daily range): BP systolic 103–168; BP diastolic 58–72
[2020-03-25] MEDS: LACTATED RINGERS 1,000 ML IV SCH ×4 (05:00→22:20)
[2020-03-25] MEDS: CLOPIDOGREL 75 MG (PLAVIX) TABLET PO SCH (08:32)
[2020-03-25] MEDS: NIFEdipine ER 60 MG (PROCARDIA XL) TAB PO SCH (08:32)
[2020-03-25] MEDS: ASPIRIN E.C. 81 MG (ECOTRIN) TAB PO SCH (08:32)
[2020-03-25] MEDS: OMEGA 3 (FISH OIL) 1000 MG CAP PO SCH ×2 (08:56→20:51)
[2020-03-25] MEDS ORDERED: NON-FORMULARY MEDICATION 1 EA EA (Nifedipine (Nifedipine ER) 60 MG) PO SCH (09:00)
[2020-03-25 09:45] LABS: HEMOGLOBIN 10.8 g/dL (13.3-17.7); MEAN PLATELET VOLUME 10.6 fL (9.0-12.2); WHITE BLOOD COUNT 11.2 10^3/uL (4.3-11.0)
[2020-03-25 09:50] LABS: CHLORIDE 103 MMOL/L (98-107); POTASSIUM 3.5 MMOL/L (3.6-5.0); SODIUM 138 MMOL/L (135-145)
[2020-03-25 09:51] LABS: CALCIUM 8.5 MG/DL (8.5-10.1); GLUCOSE 175 MG/DL (70-105)
[2020-03-25 09:53] LABS: CARBON DIOXIDE 25 MMOL/L (21-32)
[2020-03-25 09:55] LABS: CREATININE SERUM 0.88 MG/DL (0.60-1.30); GFR ESTIMATED > 60
[2020-03-25 09:56] LABS: BUN/CREATININE RATIO 19
[2020-03-25] MEDS: cefTRIAXone FOR IV USE 1,000 MG in WATER (STERILE) FOR INJECTION 10 ML IV SCH (12:04)
[2020-03-25] MEDS ORDERED: CEPH500T PO (13:56)
--- NOTE | 2020-03-25 14:00 | Discharge Inst-Simple/Standard ---
Discharge Inst-Standard Discharge Medications New, Converted or Re-Newed RX: Transmitted to Pharmacy Patient Instructions/Follow Up Plan of Care/Instructions/FU: Please continue to take your medications as written. Please follow up with your primary care doctor to follow up this hospital stay. Activity as Tolerated: Yes Discharge Diet: Cardiac Diet Return to The Hospital For: Chest pain, shortness of breath, fever, confusion, weakness, if you feel you are getting worse. NADIA VAZQUEZ MD Mar 25, 2020 14:00
--- NOTE | 2020-03-25 14:00 | Discharge Summary ---
Diagnosis/Chief Complaint Date of Admission Mar 23, 2020 at 19:00 Date of Discharge Discharge Date: Mar 25, 2020 Admission Diagnosis Sepsis due to UTI Primary Care Ross Rai DO Discharge Diagnosis (1) Severe sepsis (2) Gram-negative bacteremia (3) COVID-19 Status: Acute (4) Urinary tract infection Status: Acute (5) Hypertension (6) HLD (hyperlipidemia) (7) Non-insulin dependent type 2 diabetes mellitus (8) CAD (coronary artery disease) Discharge Summary Discharge Physical Exam Allergies: Coded Allergies: No Known Drug Allergies (Unverified , 02/22/18) Vitals & I&Os Vital Signs Date Time Temp Pulse Resp B/P (MAP) Pulse Ox O2 Delivery O2 Flow Rate FiO2 03/26/20 13:19 36.3 86 18 152/72 97 Room Air 03/23/20 21:45 2.00 General Appearance: No Apparent Distress, WD/WN Respiratory: Lungs Clear, No Respiratory Distress Cardiovascular: Regular Rate, Rhythm, No Murmur Neurologic/Psychiatric: Alert, Oriented x3 Hospital Course Pt was admitted due to weakness and fever. He was tested for COVID and was positive but was also found to have pyelonephritis. He was admitted for IV abx. He needed no oxygen and had no cough or shortness of breath. His symptoms were deemed to be due to his pyelonephritis. He was also found to be bacteremic. He was treated with IV abx for his klebsiella bacteremia and discharged home on oral antibiotics for this. He was scheduled for outpatient BAM infusion as he was still in the window for it. He is to follow up with Dr Rai to follow up this hospital stay. Labs (last 24 hrs) Microbiology 03/23/20 Urine Culture - Final, Complete Klebsiella pneumoniae 03/23/20 Blood Culture - Final, Complete Klebsiella pneumoniae See Comments 03/23/20 Influenza Types A,B Antigen ([facility]) - Final, Complete Patient resulted labs reviewed. Pending Labs Imaging: Reviewed Imaging Report Discussion & Recommendations Discharge Planning: >30 minutes discharge planning Discharge Home Medications: Active Scripts Active Cephalexin 500 Mg Tablet 500 Mg PO BID Reported Aspirin EC (Aspirin) 81 Mg Tablet. 81 Mg PO DAILY Imipramine HCl 25 Mg Tablet 25 Mg PO TID Metformin HCl 500 Mg Tablet 500 Mg PO BIDAC Quetiapine Fumarate 200 Mg Tablet 200 Mg PO HS Fish Oil 1,200 mg Softgel ([place]-3S/Dha/Epa/Fish Oil) 1 Each Capsule 1,200 Mg PO BID Atenolol 50 Mg Tablet 100 Mg PO BID TAKE 2 (50MG) TABS Clopidogrel (Clopidogrel Bisulfate) 75 Mg Tablet 75 Mg PO DAILY Lovastatin 20 Mg Tablet 20 Mg PO HS Nifedipine ER (Nifedipine) 60 Mg Tab.er.24 60 Mg PO DAILY Prinivil (Lisinopril) 20 Mg Tablet 20 Mg PO BID Instructions to patient/family Please see electronic discharge instructions given to patient. Problem Qualifiers (1) Urinary tract infection: Urinary tract infection type: acute cystitis Hematuria presence: without hematuria Qualified Codes: N30.00 - Acute cystitis without hematuria NADIA VAZQUEZ MD Mar 25, 2020 14:00
[2020-03-25] MEDS: ACETAMINOPHEN 500 MG TAB (TYLENOL) PO PRN (15:50)
[2020-03-25] MEDS: SIMvastatin 10 MG (ZOCOR) TAB PO SCH (20:51)
[2020-03-25] MEDS: QUEtiapine 200 MG (SEROquel) TAB IMMEDIATE RELEASE PO SCH (20:51)
[2020-03-26] MEDS: ACETAMINOPHEN 500 MG TAB (TYLENOL) PO PRN (01:15)
[2020-03-26] MEDS: LACTATED RINGERS 1,000 ML IV SCH ×2 (01:23→08:18)
[2020-03-26 06:03] VITALS: BP 137/64
[2020-03-26] MEDS: NIFEdipine ER 60 MG (PROCARDIA XL) TAB PO SCH (08:18)
[2020-03-26] MEDS: OMEGA 3 (FISH OIL) 1000 MG CAP PO SCH (08:18)
[2020-03-26] MEDS: CLOPIDOGREL 75 MG (PLAVIX) TABLET PO SCH (08:18)
[2020-03-26] MEDS: ASPIRIN E.C. 81 MG (ECOTRIN) TAB PO SCH (08:18)
[2020-03-26 08:20] VITALS: BP 170/77
[2020-03-26 08:22] VITALS: BP 165/75
[2020-03-26] MEDS: cefTRIAXone FOR IV USE 1,000 MG in WATER (STERILE) FOR INJECTION 10 ML IV SCH (09:59)
[2020-03-26 13:19] VITALS: BP 152/72
== END 2020-03-26 12:45 | disposition home or self-care (01) | DRG 871 ==
LOC: EDUNIT# 16:00 → ER 16:01 → 4TH 19:00
PROVIDERS: ADMIT Family Medicine; ATTEND Family Medicine
DX: A41.9 Sepsis, unspecified organism (principal); U07.1 COVID-19; N12 Tubulo-interstitial nephritis, not specified as acute or chronic; I10 Essential (primary) hypertension; E78.5 Hyperlipidemia, unspecified; E11.9 Type 2 diabetes mellitus without complications; I25.10 Atherosclerotic heart disease of native coronary artery without angina pectoris; Z87.891 Personal history of nicotine dependence; Z95.5 Presence of coronary angioplasty implant and graft; I25.2 Old myocardial infarction; E78.00 Pure hypercholesterolemia, unspecified; M19.90 Unspecified osteoarthritis, unspecified site; R65.20 Severe sepsis without septic shock; Z79.82 Long term (current) use of aspirin
CPT/HCPCS: 36415; 51702; 74022; 74177; 80048; 80053; 81000; 83605; 83690; 84145; 85007; 85027; 85610; 85730; 86141; 87040; 87077; 87088; 87186; 87635; 87804; 94760

== ENCOUNTER 2020-03-26 12:54 | Outpatient (CLI) | payer MEDICARE ==
[~2020-03-26] VITALS: Ht 172 cm; Wt 91.0 kg
[2020-03-26 12:53] VITALS: BP 134/60
[~2020-03-26 12:54] MED LIST changes: +ASPI-1238 PO; +CEPH500T PO; +IMIP25TA4 PO
[2020-03-26] MEDS ORDERED: EPINEPHrine INJECTION 1 MG/ML AMP IM PRN (13:00)
[2020-03-26] MEDS ORDERED: diphenhydrAMINE 50 MG/ML INJ (BENADRYL) IV PRN (13:00)
[2020-03-26] MEDS ORDERED: BAMLANIVIMAB (NON FORM) 700 MG in NS (IVPB) 100 ML IV ONE (13:00)
[2020-03-26 14:00] VITALS: BP 143/61
== END 2020-03-26 15:05 | disposition home or self-care (01) ==
LOC: INFUSION 12:54
PROVIDERS: ATTEND Family Medicine
DX: U07.1 COVID-19 (principal)

== ENCOUNTER → 2021-05-30 | Outpatient (CLI) | payer MEDICARE | LOC: CARD 09:17 | PROVIDERS: ATTEND Nurse Practitioner Family | DX: I35.8 Other nonrheumatic aortic valve disorders (principal); I51.7 Cardiomegaly; I25.10 Atherosclerotic heart disease of native coronary artery without angina pectoris | CPT/HCPCS: 93306 ==

== ENCOUNTER → 2021-06-07 | Outpatient (CLI) | payer MEDICARE ==
[~2021-06-07] MED LIST changes: +CATHETER FLUSH 10 ML SYR IVP PRN; +REGADENOSON 0.4 MG/5 ML SYR (LEXISCAN) IV ONE
[2021-06-07 09:02] VITALS: BP 211/94
--- NOTE | 2021-06-08 13:05 | STRESS TEST ---
DATE OF SERVICE: 06/07/2021 RESTING AND POST REGADENOSON TECHNETIUM-99M TETROFOSMIN SPECT CT IMAGING ORDERING PHYSICIAN: DINORAH Lucio. PRIMARY PHYSICIAN: Dr. Rai. CLINICAL DIAGNOSIS: Coronary artery disease. Baseline images were carried out after injection of 10.92 mCi of technetium-99m Tetrofosmin. This was followed by 0.4 mg regadenoson and 29.7 mCi of technetium-99m Tetrofosmin for stress imaging. The electrocardiogram showed sinus rhythm with right bundle branch block and with left anterior fascicular block. The electrocardiogram did not change significantly with the regadenoson infusion. He noted mild shortness of breath, which resolved in a few minutes. Review of images at rest and following stress indicates a transient basal anterior perfusion defect. Gated images show normal regional wall motion with normal global left ventricular systolic function. Left ventricular ejection fraction is calculated to be 62%. CONCLUSIONS: 1. Moderate amount of basal inferior ischemia (SDS 7). 2. Normal regional wall motion. 4. Normal global left ventricular systolic function with ejection fraction of 62%. Job ID: [id number] DocumentID: [id number] Dictated Date: 06/08/2021 12:45:04 Coal Loader Date: 06/08/2021 13:04:32 Dictated By: DUSTY GARCIA MD, MA, FACP, FACC, MTDD
== END ==
LOC: CARD 07:30
PROVIDERS: ATTEND Nurse Practitioner Family
DX: I67.82 Cerebral ischemia (principal); I25.10 Atherosclerotic heart disease of native coronary artery without angina pectoris
CPT/HCPCS: 78452; 93017; A9502

== ENCOUNTER 2021-06-14 15:00 | Day surgery (SDC) | payer MEDICARE ==
[2021-06-14] VITALS (11 sets, daily range): BP systolic 137–152; BP diastolic 61–74
[~2021-06-14] VITALS: Ht 172 cm; Wt 98.6 kg
[2021-06-14 13:40] LABS: HEMATOCRIT 38 % (40-54); HEMOGLOBIN 12.3 g/dL (13.3-17.7); MEAN CORPUSCULAR HEMOGLOBIN 28 pg (25-34); MEAN CORPUSCULAR HGB CONC 33 g/dL (32-36); MEAN CORPUSCULAR VOLUME 86 fL (80-99); MEAN PLATELET VOLUME 10.3 fL (9.0-12.2); PLATELET COUNT 252 10^3/uL (130-400); WHITE BLOOD COUNT 7.1 10^3/uL (4.3-11.0)
[2021-06-14 14:08] LABS: ALBUMIN 4.3 GM/DL (3.2-4.5); BILIRUBIN,TOTAL 0.7 MG/DL (0.1-1.0); CALCIUM 9.3 MG/DL (8.5-10.1); CREATININE SERUM 0.9 MG/DL (0.60-1.30); POTASSIUM 4.2 MMOL/L (3.6-5.0); TOTAL PROTEIN 7.5 GM/DL (6.4-8.2)
[~2021-06-14 15:00] MED LIST changes: -CATHETER FLUSH 10 ML SYR IVP PRN; +HEParin (CATH LAB) 2,000 ML IV ONE; +LIDOCAINE 1% INJ 20 ML VIAL ONE; +MULT-1136 PO; +NS IV 1000 ML 1,000 ML IV SCH; +NS IV 1000 ML 1,000 ML ONE; -REGADENOSON 0.4 MG/5 ML SYR (LEXISCAN) IV ONE
[2021-06-14] MEDS ORDERED: MIDAZOLAM 5 MG/5 ML (VERSED) VIAL ONE (15:41)
[2021-06-14] MEDS ORDERED: fentaNYL INJ 100 MCG/2 ML AMP ONE (15:42)
--- NOTE | 2021-06-14 16:17 | Cardiac Procedure Note-CS/ASA ---
Pre-Procedure Note Pre-Op Procedure Note H&P Reviewed The H&P was reviewed, patient examined and no changes noted. Date H&P Reviewed: June 14, 2021 Time H&P Reviewed: 15:45 Conscious Sedation Pre-Proced Time 15:45 ASA Score 3 For ASA 3 and 4: Consider anesthesia and medical clearance. Also, for patients with a history of failed moderate sedation consider anesthesia. Airway Lungs Heart ASA score ASA 1: a normal healthy patient ASA 2: a patient with a mild systemic disease (mid diabetes, controlled hypertension, obesity ASA 3: a patient with a severe systemic disease that limits activity (angina, COPD, prior Myocardial infarction) ASA 4: a patient with an incapacitating disease that is a constant threat to life (CHF, renal failure) ASA 5: a moribund patient not expected to survive 24 hrs. (ruptured aneurysm) ASA 6: a declared brain- patient whose organs are being harvested. For emergent operations, add the letter E after the classification Mallampati Classification Grade 1 Sedation Plan Analgesia, Amnesia, Plan communicated to team members, Discussed options with patient/fam, Discussed risks with patient/fam The patient is an appropriate candidate to undergo the planned procedure, sedation, and anesthesia. The patient immediately re-assessed prior to indication. DUSTY GARCIA MD FACP FAC CCDS June 14, 2021 16:16
--- NOTE | 2021-06-14 16:22 | Discharge Inst-Post CATH ---
Discharge Inst-CATH/EP Post Cardiac Cath/EP D/C Inst Follow Up/Plan F/u with Dr Arias in 2 weeks ACTIVITY * Go Home directly and rest. * Limit activity of the leg (or wrist if it was used) for 7 days including aerobics, swimming, jogging, bicycling, etc. * Restrict stair-climbing for 7 days if possible, if not, climb up with your non -cath leg, then bring together on the same step. * Avoid lifting, pushing, pulling or excessive movement of the affected extr emity for 7 days. * Customary sexual activity may be resumed after 2 days-use caution not to use a position that strains or causes pain to the affected extremity. * No driving for 24 hours. * NO SMOKING. * Avoid straining for bowel movements for 7 days. * Gentle walking on level ground is allowed. * Returning to work will depend on the type of procedure and the results. Your doctor will discuss this with you. CALL YOUR DOCTOR FOR ANY OF THE FOLLOWING: *If bleeding from the puncture site occurs- Apply gentle pressure to site with clean cloth and call your doctor or EMS. * If a knot or lump forms under the skin, increases in size, or causes pain. * If bruising appears to be worsening or moving further down your leg instead of disappearing. * Temperature above 101 F. CARE OF YOUR GROIN INCISION; * Bruising or purple discoloration of the skin near the puncture site is common. * You may shower only, no bathtub bathing for 5 days. Be careful to avoid slipping as your leg may feel stiff. * If a closure device was used on your femoral artery, please see the attached guide regarding care of the device and your leg. * Leave dressing on FOR 24 hours. CARE OF YOUR WRIST INCISION; * Bruising or purple discoloration of the skin near the puncture site is common. * You may shower. * DO NOT submerge wrist. * Leave dressing on FOR 24 hours. DUSTY ARIAS MD FACP FAC CCDS June 14, 2021 16:22
--- NOTE | 2021-06-14 16:22 | Discharge Inst-Cardiology ---
Discharge Inst-Cardiac Discharge Medications Continued Medications: Aspirin (Aspirin EC) 81 Mg Tablet.dr 81 MG PO DAILY, TAB Atenolol (Atenolol) 50 Mg Tablet 100 MG PO BID, TAB TAKE 2 (50MG) TABS Clopidogrel Bisulfate (Clopidogrel) 75 Mg Tablet 75 MG PO DAILY, TAB Doxazosin Mesylate (Doxazosin Mesylate) 2 Mg Tablet 2 MG PO HS, TAB Lisinopril (Prinivil) 20 Mg Tablet 20 MG PO BID Lovastatin (Lovastatin) 20 Mg Tablet 20 MG PO HS, TAB Multivitamin (Multivitamin) 1 Each Tablet 1 EACH PO DAILY, TAB Nifedipine (Nifedipine ER) 60 Mg Tab.er.24 60 MG PO DAILY, TAB [place]-3S/Dha/Epa/Fish Oil (Fish Oil 1,200 mg Softgel) 1 Each Capsule 1200 MG PO BID, CAP Quetiapine Fumarate (Quetiapine Fumarate) 200 Mg Tablet 200 MG PO HS, TAB Quetiapine Fumarate (Quetiapine Fumarate) 200 Mg Tablet 200 MG PO HS, TAB Discontinued Medications: Metformin HCl (Metformin HCl) 500 Mg Tablet 500 MG PO BIDAC, TAB Patient Instructions Patient Instructions: Resume METFORMIN in previous home dose beginning on the mornin of 06/17/21. Hold until then DUSTY GARCIA MD FACP FAC CCDS June 14, 2021 16:22
[2021-06-14] MEDS ORDERED: PATIENT MAY USE OWN MEDS, ALL PO SCH (16:30)
[2021-06-14] MEDS ORDERED: NS IV 1000 ML 1,000 ML IV SCH (16:30)
[2021-06-14] MEDS ORDERED: ACETAMINOPHEN 325 MG TABLET PO PRN (18:00)
[2021-06-14] MEDS ORDERED: oxyCODONE/APAP 5/325MG (PERCOCET 5) TABLET PO PRN (18:00)
--- NOTE | 2021-06-14 20:46 | CARDIAC CATHETERIZATION ---
DATE OF SERVICE: 06/14/2021 CARDIAC CATHETERIZATION REPORT The patient is a 75-year-old gentleman who is known to have coronary artery disease and has had multiple stents to the right coronary angiography. A recent myocardial perfusion imaging study was indicative of basal anterior ischemia. Cardiac catheterization was carried out after having obtained an informed consent. DESCRIPTION OF PROCEDURE: He was brought to the cardiac catheterization laboratory in a fasting state. Right groin was prepared and draped in the usual sterile fashion. Lidocaine 1% was used for local anesthesia. Modified Seldinger technique was used to advance a 5-Gabonese sheath into the right femoral artery, 5-Gabonese JL4 catheter for left coronary angiography, 5-Gabonese JR4 catheter was used for right coronary angiography, 5-Gabonese pigtail catheter was used for left heart catheterization and left ventricular angiography. Angiography of the right femoral artery was carried out through the sheath at the end of the procedure and Mynx was used to achieve hemostasis. HEMODYNAMICS: Left ventricular end-diastolic pressure following coronary angiography was 10 mmHg. There was no significant pressure gradient on pullback across the aortic valve. CORONARY ANGIOGRAPHY: Left main coronary artery is free of significant disease. Left anterior descending and left circumflex arteries have mild plaques. Right coronary artery is dominant and is extensively stented. There are up to approximately 50% stenoses within the stented segment. The distal right coronary artery has mild to moderate plaque. LEFT VENTRICULAR ANGIOGRAPHY: Left ventricular angiography was carried out in the right anterior oblique projection. Global left ventricular systolic function is well preserved. Left ventricular ejection fraction is 50% to 55%. CONCLUSIONS: 1. Coronary artery disease, mild to moderate. The right coronary artery is extensively stented and there are moderate in-stent restenosis at a few spots. 2. Normal left ventricular end-diastolic pressure. 3. Well preserved global left ventricular systolic function with ejection fraction of 50% to 55%. DISCUSSION AND RECOMMENDATIONS: Based on results of the study, it appears appropriate to continue a conservative approach. Risk factor modification has been reviewed. Current regimen is being continued. Outpatient followup is advised Job ID: [id number] DocumentID: [id number] Dictated Date: 06/14/2021 16:31:51 Utilities Service Investigator Date: 06/14/2021 20:45:33 Dictated By: DUSTY GARCIA MD, MA, FACP, FACC, MTDD
== END 2021-06-14 20:15 | disposition home or self-care (01) ==
LOC: CATH 15:00 → CSD 16:38 → CATH 20:15
PROVIDERS: ATTEND Internal Medicine Cardiovascular Disease
DX: I25.10 Atherosclerotic heart disease of native coronary artery without angina pectoris (principal); I10 Essential (primary) hypertension; I65.23 Occlusion and stenosis of bilateral carotid arteries; E78.2 Mixed hyperlipidemia; E66.9 Obesity, unspecified; E04.1 Nontoxic single thyroid nodule; E11.9 Type 2 diabetes mellitus without complications; R94.39 Abnormal result of other cardiovascular function study; R42 Dizziness and giddiness; Z86.16 Personal history of COVID-19; Z79.84 Long term (current) use of oral hypoglycemic drugs; Z79.899 Other long term (current) drug therapy
CPT/HCPCS: 80053; 80061; 85027; 85610; 85730; 87081; 93005; 93458; C1760; C1894; 36415

== ENCOUNTER → 2022-06-29 | Outpatient (CLI) | payer MEDICARE ==
[~2022-06-29] MED LIST changes: -HEParin (CATH LAB) 2,000 ML IV ONE; -LIDOCAINE 1% INJ 20 ML VIAL ONE; -NS IV 1000 ML 1,000 ML IV SCH; -NS IV 1000 ML 1,000 ML ONE
--- NOTE | 2022-06-29 16:02 | Diagnostic Imaging Report ---
INDICATION: Shortness of breath, smoking history. PA and lateral chest obtained at 09:28 a.m. Heart and mediastinal silhouette are normal in appearance. The lungs are clear. There is no pneumothorax or pleural fluid. There are diffuse degenerative changes throughout the thoracic spine. IMPRESSION: No acute process in the chest. Dictated by: Dictated on workstation # [id number]
== END ==
LOC: RAD 09:10
PROVIDERS: ATTEND Family Medicine
DX: R06.02 Shortness of breath (principal); Z87.891 Personal history of nicotine dependence
CPT/HCPCS: 71046

== ENCOUNTER 2022-08-16 08:00 | Day surgery (SDC) | payer MEDICARE ==
[~2022-08-16] VITALS: Ht 170 cm; Wt 105.6 kg
[2022-08-16] VITALS (21 sets, daily range): BP systolic 109–146; BP diastolic 55–70
[2022-08-16 07:19] LABS: HEMATOCRIT 38 % (40-54); HEMOGLOBIN 12.7 g/dL (13.3-17.7); MEAN CORPUSCULAR HEMOGLOBIN 28 pg (25-34); MEAN CORPUSCULAR HGB CONC 33 g/dL (32-36); MEAN CORPUSCULAR VOLUME 85 fL (80-99); MEAN PLATELET VOLUME 10.5 fL (9.0-12.2); PLATELET COUNT 253 10^3/uL (130-400); WHITE BLOOD COUNT 8.3 10^3/uL (4.3-11.0)
[2022-08-16 07:29] LABS: PROTHROMBIN TIME PATIENT 13.1 SEC (12.2-14.7)
[2022-08-16 07:39] LABS: ALBUMIN 4.1 GM/DL (3.2-4.5); BILIRUBIN,TOTAL 0.4 MG/DL (0.1-1.0); CALCIUM 9.2 MG/DL (8.5-10.1); CREATININE SERUM 1.04 MG/DL (0.60-1.30); POTASSIUM 4.6 MMOL/L (3.6-5.0); TOTAL PROTEIN 7.4 GM/DL (6.4-8.2)
[~2022-08-16 08:00] MED LIST changes: +HEParin (CATH LAB) 2,000 ML IV ONE; +HEParin 1000 UNIT/ML (10ML VIAL) FOR BOLUS ONE; +LIDOCAINE 1% INJ 20 ML VIAL ONE; +MIDAZOLAM 5 MG/5 ML (VERSED) VIAL ONE; +NITRO DRIP 25000 MCG/D5W 250 ML IV ONE; +NS IV 1000 ML 1,000 ML IV SCH; +NS IV 1000 ML 1,000 ML ONE; +VERAPAMIL 5 MG/2 ML (CALAN) VIAL IV ONE; +fentaNYL INJ 100 MCG/2 ML AMP ONE
[2022-08-16] MEDS ORDERED: EPTIFIBATIDE BOLUS 20 ML IV ONE (08:55)
[2022-08-16] MEDS ORDERED: ASPIRIN 81 MG CHEW (CHILDREN'S ASA) ONE (09:31)
[2022-08-16] MEDS ORDERED: CLOPIDOGREL 75 MG (PLAVIX) TABLET ONE (09:31)
--- NOTE | 2022-08-16 09:35 | Cardiac Procedure Note-CS/ASA ---
Pre-Procedure Note Pre-Op Procedure Note Date of Available H&P: Aug 16, 2022 Date H&P Reviewed: Aug 16, 2022 Time H&P Reviewed: 08:15 History & Physical: H&P Reviewed, No changes noted Moderate Sedation PreProcedure ASA Score 3 Airway Lungs Heart ASA score ASA 1: a normal healthy patient ASA 2: a patient with a mild systemic disease (mid diabetes, controlled hypertension, obesity ASA 3: a patient with a severe systemic disease that limits activity (angina, COPD, prior Myocardial infarction) ASA 4: a patient with an incapacitating disease that is a constant threat to life (CHF, renal failure) ASA 5: a moribund patient not expected to survive 24 hrs. (ruptured aneurysm) ASA 6: a declared brain- patient whose organs are being harvested. For emergent operations, add the letter E after the classification Mallampati Classification Grade 2 Sedation Plan Analgesia, Amnesia, Plan communicated to team members The patient is an appropriate candidate to undergo the planned procedure, sedation, and anesthesia. The patient immediately re-assessed prior to indication. DUSTY GARCIA MD FACP FAC CCDS Aug 16, 2022 09:35
--- NOTE | 2022-08-16 09:49 | Cardiac Cath Report ---
CARDIAC CATHETERIZATION DATE OF PROCEDURE: 08-16-22 INDICATION: Chest pain, CAD HISTORY: The patient is a 77 year old male with known CAD (h/o multiple RCA stents) and recent angina unrelieved the medical therapy (including beta-halley and calcium channel halley) PROCEDURES PERFORMED: 1. Cor angio 2. LHC 3. PCI to LAD PROCEDURE DESCRIPTION: After informed consent and in the fasting state, left heart catheterization was performed through the R radial artery utilizing a 6 Yi system by percutaneous approach. 6F TIG for diagnostic cath. All catheters were exchanged over a guidewire. HEMODYNAMICS: LVEDP, no significant pressure gradient on pullback across the aortic valve CORONARY ANGIOGRAPHY: Left main coronary artery: Ok Left anterior descending coronary artery: Occluded in mid-vessel Left circumflex coronary artery: mild plaques Right coronary artery: dominant; diffuse, mild to mod disease of the vessel; previously stented and all patent w/o significant disease (prox stent known to be 3.5 x 12 Promus [place] that was placed in 2014, mid vessel stent place in 2008 and known to be a EZEKIEL, distal stent placed in 2006 and known to be BMS) PERCUTANEOUS CORONARY INTERVENTION: Guide: 6F Q3.5 Wire: Choice Floppy Balloon: 2.0 x 20 Pre-intervention: 100% mid LAD with CAROL 0 flow Post-intervention: less than 10% residual with CAROL 3 flow IMPRESSION: 1. CAD. LMCA Ok; LAD occluded mid-vessel to which successful balloon-only angioplasty resulted in improvement of stenosis to less than 10% residual and normal antegrade flow; LCx mild plaques; RCA dominant with mild to mod disease and patent stents present in its prox, mid, and distal portions 2. LVEDP: 15 mmHg 3. LV angiography not performed DUSTY GARCIA MD FACP [facility] CCDS Aug 16, 2022 09:49
[2022-08-16] MEDS ORDERED: PATIENT MAY USE OWN MEDS, ALL PO SCH (10:00)
[2022-08-16] MEDS: NS IV 1000 ML 1,000 ML IV SCH ×2 (10:21→18:10)
[2022-08-16] MEDS: inSUlin ASPART (NovoLOG) 1 UNIT/0.01 ML (CHARGE PER UNIT) SC SCH ×3 (11:01→20:04)
[2022-08-16] MEDS ORDERED: LISI20TA26 PO (16:37)
[2022-08-16] MEDS ORDERED: ASPI-999 PO (16:37)
[2022-08-16] MEDS ORDERED: FISH1CAP15 PO (16:38)
[2022-08-16] MEDS ORDERED: NITR0.4T39 SL (16:38)
[2022-08-16] MEDS ORDERED: lisINopril 20 MG (PRINIVIL) TABLET PO SCH (21:00)
[2022-08-16] MEDS ORDERED: doxAzosin 2 MG (CARDURA) TAB PO SCH (21:00)
[2022-08-16] MEDS ORDERED: QUEtiapine 200 MG (SEROquel) TAB IMMEDIATE RELEASE PO SCH (21:00)
[2022-08-16] MEDS ORDERED: NON-FORMULARY MEDICATION 1 EA EA (Lovastatin 20 MG) PO SCH (21:00)
[2022-08-16] MEDS ORDERED: NON-FORMULARY MEDICATION 1 EA EA (Atenolol 100 MG) PO SCH (21:00)
[2022-08-16] MEDS: OMEGA 3 (FISH OIL) 1000 MG CAP PO SCH (21:08)
[2022-08-16] MEDS: ATENOLOL 25 MG (TENORMIN) TAB PO SCH (21:09)
[2022-08-17] VITALS (7 sets, daily range): BP systolic 101–138; BP diastolic 34–69
[2022-08-17 04:52] LABS: BASOPHILS % (AUTO) 0 % (0-10); EOSINOPHILS # (AUTO) 0.3 10^3/uL (0.0-0.3); EOSINOPHILS % (AUTO) 4 % (0-10); HEMATOCRIT 33 % (40-54); LYMPHOCYTES # (AUTO) 1.7 10^3/uL (1.0-4.0); LYMPHOCYTES % (AUTO) 25 % (12-44); MEAN CORPUSCULAR HEMOGLOBIN 28 pg (25-34); MEAN CORPUSCULAR HGB CONC 33 g/dL (32-36); MEAN CORPUSCULAR VOLUME 85 fL (80-99); MEAN PLATELET VOLUME 10.8 fL (9.0-12.2); MONOCYTES # (AUTO) 0.5 10^3/uL (0.0-1.0); MONOCYTES % (AUTO) 8 % (0-12); NEUTROPHILS # (AUTO) 4.2 10^3/uL (1.8-7.8); NEUTROPHILS % (AUTO) 62 % (42-75); PLATELET COUNT 217 10^3/uL (130-400); WHITE BLOOD COUNT 6.8 10^3/uL (4.3-11.0)
[2022-08-17 05:14] LABS: POTASSIUM 3.9 MMOL/L (3.6-5.0)
[2022-08-17 05:15] LABS: CALCIUM 8.6 MG/DL (8.5-10.1)
[2022-08-17 05:19] LABS: CREATININE SERUM 0.9 MG/DL (0.60-1.30)
[2022-08-17 05:21] LABS: MAGNESIUM 1.7 MG/DL (1.6-2.4)
[2022-08-17] MEDS: inSUlin ASPART (NovoLOG) 1 UNIT/0.01 ML (CHARGE PER UNIT) SC SCH ×2 (05:42→12:19)
--- NOTE | 2022-08-17 07:47 | Progress Note - Cardiology ---
Cardiology SOAP Progress Note Objective: I&O/Vital Signs 08/16/22 08/16/22 08/16/22 08/16/22 20:00 20:00 21:00 22:00 Pulse 65 58 Resp 15 B/P (MAP) 141/70 (99) 134/66 (91) 128/68 (92) Pulse Ox 95 96 O2 Delivery Room Air Room Air Room Air Room Air 08/16/22 08/17/22 08/17/22 08/17/22 23:00 00:11 01:00 01:00 Temp 36.5 Pulse 59 59 63 64 Resp 26 17 16 B/P (MAP) 122/63 (91) 117/34 (65) 127/40 (89) Pulse Ox 96 91 95 O2 Delivery Room Air Room Air Room Air 08/17/22 08/17/22 02:00 03:00 Pulse 60 Resp 8 B/P (MAP) 101/40 (59) 121/53 (87) Pulse Ox 91 O2 Delivery Room Air 08/17/22 00:00 Intake Total 100 ml Output Total 350 ml Balance -250 ml Weight (Pounds): 220 Weight (Ounces): 0.0 Weight (Calculated Kilograms): 99.479495 Results/Procedures: Labs Laboratory Tests 08/16/22 11:01: Glucometer 117H 08/16/22 15:01: Glucometer 120H 08/16/22 20:01: Glucometer 146H 08/17/22 04:10: White Blood Count 6.8, Red Blood Count 3.87L, Hemoglobin 11.0L, Hematocrit 33L, Mean Corpuscular Volume 85, Mean Corpuscular Hemoglobin 28, Mean Corpuscular Hemoglobin Concent 33, Red Cell Distribution Width 13.5, Platelet Count 217, Mean Platelet Volume 10.8, Immature Granulocyte % (Auto) 0, Neutrophils (%) (Auto) 62, Lymphocytes (%) (Auto) 25, Monocytes (%) (Auto) 8, Eosinophils (%) (Auto) 4, Basophils (%) (Auto) 0, Neutrophils # (Auto) 4.2, Lymphocytes # (Auto) 1.7, Monocytes # (Auto) 0.5, Eosinophils # (Auto) 0.3, Basophils # (Auto) 0.0, Immature Granulocyte # (Auto) 0.0, Sodium Level 138, Potassium Level 3.9, Chloride Level 108H, Carbon Dioxide Level 23, Anion Gap 7, Blood Urea Nitrogen 14, Creatinine 0.90, Estimat Glomerular Filtration Rate 89, BUN/Creatinine Ratio 16, Glucose Level 126H, Calcium Level 8.6, Magnesium Level 1.7 Laboratory Tests 08/16/22 07:13 08/17/22 04:10 A/P: Assessment: CAD: - Cardiac cath of August 25, 2014 showed 80 to 90% proximal right coronary artery stenosis, to which successful stenting was carried out with Promus Premier 3.5 x 12 mm stent deployed at 20 atmospheres. Patent mid and distal right coronary artery stents (known to be EZEKIEL placed in 2008). The distal right coronary artery stent (known to be a bare metal stent placed [id number]) has approximately 40% in- stent restenosis. The left anterior descending artery has 30 to 40% proximal and approximately 50% mid vessel stenosis. Well preserved global left ventricular systolic function with an ejection fraction of 50 to 55%. Normal left ventricular end diastolic pressure. No significant mitral regurgitation. - Myocardial perfusion imaging from 06-07-2021 showed mod amt of basal inferior ishcmia (SDS 7). LVEF 62% - Echocardiogram of showed LVEF 60-65%. Grade 1 diastolic dysfunction. AoV thickening - Cardiac cath of 06-14-21: Coronary artery disease, mild to moderate. The right coronary artery is extensively stented and there are moderate in-stent restenosis at a few spots. Normal left ventricular end-diastolic pressure. Well preserved global left ventricular systolic function with ejection fraction of 50% to 55% - Cardiac cath of 08-16-22: CAD. LMCA Ok; LAD occluded mid-vessel to which successful balloon-only angioplasty resulted in improvement of stenosis to less than 10% residual and normal antegrade flow; LCx mild plaques; RCA dominant with mild to mod disease and patent stents present in its prox, mid, and distal portions. LVEDP: 15 mmHg. LV angiography not performed Hypertension, labile: - BP normal on 24 hr amb bp monitoring of 03/02-03/03/16 Hyperlipidemia - being treated with lovastatin, followed by NILA SAMSON (+) in Mar 2020 Diabetes mellitus - which is followed by Dr. Rai Obesity - Elevated body mass index of approximately 35 Carotid dz - Mild carotid art disease on carotid u/s of 11-25-20 Thyroid nodules - Incidental note of bilat thyroid nodules: 2.4x1.3x1.5 on R and 3.1x2x2 cm on the left - following with Dr. Rai (per carotid u/s of July 2018) Occ postural dizziness - No evidence of orthostasis on the office visit of 10/04/15 - no c/o at this time No evidence of AAA on an abd ao screening scan of 08/08/16 Oncology - Prostatectomy for prostate CA at [facility] in April 2019 - subsequent loss of micturition control treat with AMS 800 Urinary Control System implanted by Dr Gotti at [facility] YAS PAYTON Aug 17, 2022 07:47
--- NOTE | 2022-08-17 07:49 | Discharge Inst-Cardiology ---
Discharge Inst-Cardiac Discharge Medications Continued Medications: Aspirin (Aspirin) 81 Mg Tab.chew 81 MG PO DAILY, TAB Atenolol (Atenolol) 50 Mg Tablet 100 MG PO BID, TAB TAKE 2 (50MG) TABS Clopidogrel Bisulfate (Clopidogrel) 75 Mg Tablet 75 MG PO DAILY, TAB Fish Oil/Dha/Epa (Fish Oil 1,200 mg Fish Oil) 1,200 Mg-144 Mg-216 Mg Capsule 1 EACH PO BID, CAP Lisinopril (Lisinopril) 20 Mg Tablet 20 MG PO DAILY, TAB Lovastatin (Lovastatin) 20 Mg Tablet 20 MG PO HS, TAB Metformin HCl (Metformin HCl) 500 Mg Tablet 500 MG PO BID, TAB Multivitamin (Multivitamin) 1 Each Tablet 1 EACH PO DAILY, TAB Nifedipine (Nifedipine ER) 60 Mg Tab.er.24 60 MG PO DAILY, TAB Nitroglycerin (Nitroglycerin) 0.4 Mg Tab.subl 0.4 MG SL UD PRN for CHEST PAIN, TAB Quetiapine Fumarate (Quetiapine Fumarate) 200 Mg Tablet 200 MG PO HS, TAB Patient Instructions Patient Instructions: Please schedule a follow up appointment to see Dr. Arias in 4-6 weeks Do not restart Metformin until Sunday, August 19, 2022 YAS PAYTON Aug 17, 2022 07:49
[2022-08-17] MEDS ORDERED: CLOPIDOGREL 75 MG (PLAVIX) TABLET PO SCH (09:00)
[2022-08-17] MEDS ORDERED: lisINopril 20 MG (PRINIVIL) TABLET PO SCH (09:00)
[2022-08-17] MEDS ORDERED: MULTIVIT W/MINERALS TAB (THERAGRAN M) PO SCH (09:00)
[2022-08-17] MEDS ORDERED: NIFEdipine ER 30 MG (PROCARDIA XL) TAB PO SCH (09:00)
--- NOTE | 2022-08-17 09:58 | Progress Note - Cardiology ---
Cardiology SOAP Progress Note Subjective: Feels well No shortness of breath No n/v/d No focal weakness No palp or syncope No cp No wrist or arm discomfort Objective: I&O/Vital Signs 08/16/22 08/16/22 08/17/22 08/17/22 22:00 23:00 00:11 01:00 Temp 36.5 Pulse 58 59 59 63 Resp 15 26 17 B/P (MAP) 128/68 (92) 122/63 (91) 117/34 (65) Pulse Ox 96 91 O2 Delivery Room Air Room Air Room Air 08/17/22 08/17/22 08/17/22 08/17/22 01:00 02:00 03:00 07:00 Pulse 64 60 61 Resp 16 8 B/P (MAP) 127/40 (89) 101/40 (59) 121/53 (87) Pulse Ox 95 91 O2 Delivery Room Air Room Air 08/17/22 07:51 Temp 36.3 Pulse 60 Resp 18 B/P (MAP) 138/68 (91) Pulse Ox 99 O2 Delivery Room Air 08/17/22 00:00 Intake Total 100 ml Output Total 350 ml Balance -250 ml Weight (Pounds): 220 Weight (Ounces): 0.0 Weight (Calculated Kilograms): 99.421836 Constitutional: AAO x 3, well-developed, well-nourished Respiratory: No accessory muscle use; chest expansion is symmetric, chest is bilaterally symmetric, other (good, bilat air entry) Cardiovascular: regular rate-rhythm, S1 and S2, systolic murmur (soft GUILLERMO at card basee) Gastrointestional: No tender; soft; No guarding, No rebound; audible bowel sounds Extremities: No clubbing, No cyanosis, No significant edema Neurologic/Psychiatric: oriented x 3, other (moves all limbs) Results/Procedures: Labs Laboratory Tests 08/16/22 11:01: Glucometer 117H 08/16/22 15:01: Glucometer 120H 08/16/22 20:01: Glucometer 146H 08/17/22 04:10: White Blood Count 6.8, Red Blood Count 3.87L, Hemoglobin 11.0L, Hematocrit 33L, Mean Corpuscular Volume 85, Mean Corpuscular Hemoglobin 28, Mean Corpuscular Hemoglobin Concent 33, Red Cell Distribution Width 13.5, Platelet Count 217, Mean Platelet Volume 10.8, Immature Granulocyte % (Auto) 0, Neutrophils (%) (A uto) 62, Lymphocytes (%) (Auto) 25, Monocytes (%) (Auto) 8, Eosinophils (%) (Auto) 4, Basophils (%) (Auto) 0, Neutrophils # (Auto) 4.2, Lymphocytes # (Auto) 1.7, Monocytes # (Auto) 0.5, Eosinophils # (Auto) 0.3, Basophils # (Auto) 0.0, Immature Granulocyte # (Auto) 0.0, Sodium Level 138, Potassium Level 3.9, Chloride Level 108H, Carbon Dioxide Level 23, Anion Gap 7, Blood Urea Nitrogen 14, Creatinine 0.90, Estimat Glomerular Filtration Rate 89, BUN/Creatinine Ratio 16, Glucose Level 126H, Calcium Level 8.6, Magnesium Level 1.7 Laboratory Tests 08/16/22 07:13 08/17/22 04:10 A/P: Assessment: CAD: - Cardiac cath of August 25, 2014 showed 80 to 90% proximal right coronary artery stenosis, to which successful stenting was carried out with Promus Premier 3.5 x 12 mm stent deployed at 20 atmospheres. Patent mid and distal right coronary artery stents (known to be EZEKIEL placed in 2008). The distal right coronary artery stent (known to be a bare metal stent placed [id number]) has approximately 40% in- stent restenosis. The left anterior descending artery has 30 to 40% proximal and approximately 50% mid vessel stenosis. Well preserved global left ventricular systolic function with an ejection fraction of 50 to 55%. Normal left ventricular end diastolic pressure. No significant mitral regurgitation. - Myocardial perfusion imaging from 06-07-2021 showed mod amt of basal inferior ishcmia (SDS 7). LVEF 62% - Echocardiogram of showed LVEF 60-65%. Grade 1 diastolic dysfunction. AoV thickening - Cardiac cath of 06-14-21: Coronary artery disease, mild to moderate. The right c oronary artery is extensively stented and there are moderate in-stent restenosis at a few spots. Normal left ventricular end-diastolic pressure. Well preserved global left ventricular systolic function with ejection fraction of 50% to 55% - Cardiac cath of 08-16-22: CAD. LMCA Ok; LAD occluded mid-vessel to which successful balloon-only angioplasty resulted in improvement of stenosis to less than 10% residual and normal antegrade flow; LCx mild plaques; RCA dominant with mild to mod disease and patent stents present in its prox, mid, and distal portions. LVEDP: 15 mmHg. LV angiography not performed Hypertension, labile: - BP normal on 24 hr amb bp monitoring of 03/02-03/03/16 Hyperlipidemia - being treated with lovastatin, followed by PCP CHAPIN (+) in Mar 2020 Diabetes mellitus - which is followed by Dr. Rai Obesity - Elevated body mass index of approximately 35 Carotid dz - Mild carotid art disease on carotid u/s of 11-25-20 Thyroid nodules - Incidental note of bilat thyroid nodules: 2.4x1.3x1.5 on R and 3.1x2x2 cm on the left - following with Dr. Rai (per carotid u/s of July 2018) Occ postural dizziness - No evidence of orthostasis on the office visit of 10/04/15 - no c/o at this time No evidence of AAA on an abd ao screening scan of 08/08/16 Oncology - Prostatectomy for prostate CA at [facility] in April 2019 - subsequent loss of micturition control treat with AMS 800 Urinary Control System implanted by Dr Gotti at [facility] Plan: * I reviewed and discussed with him and his the cath findings and the intervention undertaken. Questions answered in detail * Risk factor mod advised and discussed * Advised continuation of his cardiac regimen and outpt f/[facility] Aug 17, 2022 09:58
[2022-08-17] MEDS: OMEGA 3 (FISH OIL) 1000 MG CAP PO SCH (11:52)
[2022-08-17] MEDS: ATENOLOL 25 MG (TENORMIN) TAB PO SCH (11:53)
== END 2022-08-17 12:12 | disposition home or self-care (01) ==
LOC: CATH 08:00 → CSD 10:02 → CATH 08-17 12:12
PROVIDERS: ATTEND Internal Medicine Cardiovascular Disease
DX: I25.119 Atherosclerotic heart disease of native coronary artery with unspecified angina pectoris (principal); R94.39 Abnormal result of other cardiovascular function study; E78.2 Mixed hyperlipidemia; E04.1 Nontoxic single thyroid nodule; E11.9 Type 2 diabetes mellitus without complications; I10 Essential (primary) hypertension; I65.23 Occlusion and stenosis of bilateral carotid arteries; E66.9 Obesity, unspecified; Z90.79 Acquired absence of other genital organ(s); Z85.46 Personal history of malignant neoplasm of prostate; Z95.5 Presence of coronary angioplasty implant and graft; Z68.37 Body mass index [BMI] 37.0-37.9, adult; Z87.891 Personal history of nicotine dependence; Z86.16 Personal history of COVID-19; Z79.84 Long term (current) use of oral hypoglycemic drugs
CPT/HCPCS: 80048; 80053; 80061; 82947 ×2; 83735; 85025; 85027; 85610; 85730; 87081; 92920; 93005; 93458; C1725; C1769 ×2; C1887; C1894; 36415

== ENCOUNTER 2022-09-25 16:17 | Observation (INO) | payer MEDICARE ==
[~2022-09-25] VITALS: Ht 170 cm; Wt 105.2 kg
[~2022-09-25 16:17] MED LIST changes: +ASPI-999 PO; +FISH1CAP15 PO; -HEParin (CATH LAB) 2,000 ML IV ONE; -HEParin 1000 UNIT/ML (10ML VIAL) FOR BOLUS ONE; -LIDOCAINE 1% INJ 20 ML VIAL ONE; +LISI20TA26 PO; -MIDAZOLAM 5 MG/5 ML (VERSED) VIAL ONE; +NITR0.4T39 SL; -NITRO DRIP 25000 MCG/D5W 250 ML IV ONE; -NS IV 1000 ML 1,000 ML IV SCH; -NS IV 1000 ML 1,000 ML ONE; -VERAPAMIL 5 MG/2 ML (CALAN) VIAL IV ONE; -fentaNYL INJ 100 MCG/2 ML AMP ONE
--- NOTE | 2022-09-25 16:35 | ED General ---
General Chief Complaint: Dizziness/Syncope Stated Complaint: WEAKNESS Nursing Triage Note: PT ARRIVED PER EMS, PT CO OF SUDDEN ONSET DIZZINESS, NAUSEA, DIAPHORISIS, DENIES C/P OR ABD PAIN. PT HAS SL IN AC. Source of Information: Patient Exam Limitations: No Limitations History of Present Illness Date Seen by Provider: Sep 25, 2022 Time Seen by Provider: 16:32 Initial Comments Patient is a 77-year-old male who was brought to ED by EMS from home for acute onset of dizziness and nausea. Patient states he was sitting at home at the time. This occurred 1 hour ago. [place] dizzy while sitting and stood up and walk and was found to have a unsteady gait according to . Patient did vomit. States he feels weak throughout. Patient was diaphoretic. EMS was contacted. Patient states he had a cardiac catheterization performed by Dr. Arias 1 month ago. Had a balloon angioplasty of his LAD. Patient is on Plavix. He denies of any specific chest pain, shortness of breath, abdominal pain, diarrhea, fever, chills. Denies ofany headache, visual loss. Patient denies of any issues with urination. Patient felt fine this morning. According to patient has had intermittent chest pain over the past week. Takes nitro with improvement Allergies and Home Medications Allergies Coded Allergies: No Known Drug Allergies (Unverified , 02/22/18) Patient Home Medication List Home Medication List Reviewed: Yes Aspirin (Aspirin) 81 Mg Tab.chew, 81 MG PO DAILY, (Reported) Entered as Reported by: RONALD SALOMON on 08/16/22 1637 Atenolol (Atenolol) 50 Mg Tablet, 100 MG PO BID, (Reported) Entered as Reported by: GEORGETTE VILLATORO on 04/16/17 1030 Clopidogrel Bisulfate (Clopidogrel) 75 Mg Tablet, 75 MG PO DAILY, (Reported) Entered as Reported by: GEORGETTE VILLATORO on 04/16/17 1030 Fish Oil/Dha/Epa (Fish Oil 1,200 mg Fish Oil) 1,200 Mg-144 Mg-216 Mg Capsule, 1 EACH PO BID, (Reported) Entered as Reported by: RONALD SALOMON on 08/16/22 1638 Lisinopril (Lisinopril) 20 Mg Tablet, 20 MG PO DAILY, (Reported) Entered as Reported by: RONALD SALOMON on 08/16/22 1637 Lovastatin (Lovastatin) 20 Mg Tablet, 20 MG PO HS, (Reported) Entered as Reported by: GEORGETTE VILLATORO on 04/16/17 1030 Metformin HCl (Metformin HCl) 500 Mg Tablet, 500 MG PO BID, (Reported) Entered as Reported by: KIERAN RAMIREZ on 08/16/22 0729 Multivitamin (Multivitamin) 1 Each Tablet, 1 EACH PO DAILY, (Reported) Entered as Reported by: DIRK RAMIREZ on 06/14/21 1424 Nifedipine (Nifedipine ER) 60 Mg Tab.er.24, 60 MG PO DAILY, (Reported) Entered as Reported by: GEORGETTE VILLATORO on 04/16/17 1030 Nitroglycerin (Nitroglycerin) 0.4 Mg Tab.subl, 0.4 MG SL UD PRN for CHEST PAIN, (Reported) Entered as Reported by: RONALD SALOMON on 08/16/22 1638 Quetiapine Fumarate (Quetiapine Fumarate) 200 Mg Tablet, 200 MG PO HS, ( Reported) Entered as Reported by: GEORGETTE VILLATORO on 04/16/17 1030 Last Action: Continued Review of Systems Review of Systems Constitutional: diaphoresis, dizziness, malaise, weakness EENTM: No ear pain, No blurred vision, No double vision Respiratory: No cough, No dyspnea on exertion Gastrointestinal: No abdominal pain; nausea, vomiting Genitourinary: No decreased output, No discharge Musculoskeletal: No back pain, No joint pain Skin: No change in color, No change in hair/nails All Other Systems Reviewed Negative Unless Noted: Yes Past Mmvhnfn-Oyjpan-Bxmpbo Hx Patient Social History Tobacco Use?: No Substance use?: No Alcohol Use?: No Pt feels they are or have been: No Immunizations Up To Date Tetanus Booster (TDap): More than 5yrs PED Vaccines UTD: Yes First/Initial COVID19 Vaccinat: YES Second COVID19 Vaccination David: YES Seasonal Allergies Seasonal Allergies: No Past Medical History Surgery/Hospitalization HX: RECENT HEART CATH, PENILE IMPLANT. Surgeries: Yes ( tongue surgery;cyst on spine tailbone;SKIN CA;TURP;PROSTATECTOMY 04/17/19 ) Coronary Stent, Prostatectomy Respiratory: No Cardiac: Yes (STENTS X4, LAST ONE 2013, "ABOUT 8" HEART ATTACKS PRIOR TO STENTS ) Coronary Artery Disease, High Cholesterol, Hypertension Neurological: No Sexually Transmitted Disease: No HIV/AIDS: No Genitourinary: Yes (TURP; PROSTATECTOMY 04/17/19 AT ) Prostate Problems Gastrointestinal: No Musculoskeletal: Yes Arthritis Endocrine: Yes Diabetes, Non-Insulin dep HEENT: Yes (GLASSES) Loss of Vision: Bilateral Hearing Impairment: Denies Cancer: Yes (TONGUE, prostectomy) Prostate Did You Recieve Any Treatments: Yes What Type of Treatment Did You: Radiation, Surgical Intervention Psychosocial: Yes Sleep Difficulties Integumentary: No Blood Disorders: No Adverse Reaction/Blood Tranf: No (N/A) Physical Exam Vital Signs Vital Signs - First Documented 09/25/22 09/25/22 16:20 18:44 Pulse 89 Resp 37 B/P (MAP) 156/75 (102) Pulse Ox 94 O2 Delivery Room Air Capillary Refill : Less Than 3 Seconds Height, Weight, BMI Height: 5'8.00" Weight: 220lbs. 0.0oz. 99.106064rk; 34.00 BMI Method:Stated General Appearance: No Apparent Distress, WD/WN Eyes: Bilateral Eye Normal Inspection, Bilateral Eye PERRL, Bilateral Eye EOMI HEENT: PERRL/EOMI, TMs Normal, Normal ENT Inspection, Pharynx Normal Neck: Full Range of Motion, Normal Inspection, Non Tender Respiratory: Chest Non Tender, Lungs Clear, Normal Breath Sounds, No Accessory Muscle Use Cardiovascular: Regular Rate, Rhythm, No Edema, No Gallop, No JVD Gastrointestinal: Normal Bowel Sounds, No Organomegaly, No Pulsatile Mass, Non Tender Back: Normal Inspection, No CVA Tenderness Extremity: Normal Capillary Refill, Normal Inspection, Normal Range of Motion Neurologic/Psychiatric: Alert, Oriented x3, No Motor/Sensory Deficits, Normal Mood/Affect, supervisor in charge II-XII Norm as Tested Skin: Other (Clamy) Progress/Results/Core Measures Suspected Sepsis SIRS Temperature: Pulse: 89 Respiratory Rate: 37 Laboratory Tests 09/25/22 16:22: White Blood Count 11.9H Blood Pressure 156 /75 Mean: 102 Laboratory Tests 09/25/22 16:22: Creatinine 1.05, INR Comment 1.1, Platelet Count 211, Total Bilirubin 0.7 Results/Orders Lab Results Laboratory Tests Test 09/25/22 16:22 09/25/22 16:59 09/25/22 18:08 Range/Units White Blood Count 11.9 H 4.3-11.0 10^3/uL Red Blood Count 4.53 4.30-5.52 10^6/uL Hemoglobin 12.6 L 13.3-17.7 g/dL Hematocrit 39 L 40-54 % Mean Corpuscular Volume 86 80-99 fL Mean Corpuscular Hemoglobin 28 25-34 pg Mean Corpuscular Hemoglobin Concent 32 32-36 g/dL Red Cell Distribution Width 13.8 10.0-14.5 % Platelet Count 211 130-400 10^3/uL Mean Platelet Volume 10.2 9.0-12.2 fL Immature Granulocyte % (Auto) 0 % Neutrophils (%) (Auto) 84 H 42-75 % Lymphocytes (%) (Auto) 8 L 12-44 % Monocytes (%) (Auto) 7 0-12 % Eosinophils (%) (Auto) 1 0-10 % Basophils (%) (Auto) 0 0-10 % Neutrophils # (Auto) 10.0 H 1.8-7.8 10^3/uL Lymphocytes # (Auto) 1.0 1.0-4.0 10^3/uL Monocytes # (Auto) 0.8 0.0-1.0 10^3/uL Eosinophils # (Auto) 0.1 0.0-0.3 10^3/uL Basophils # (Auto) 0.0 0.0-0.1 10^3/uL Immature Granulocyte # (Auto) 0.0 0.0-0.1 10^3/uL Prothrombin Time 13.9 12.2-14.7 SEC INR Comment 1.1 0.8-1.4 Activated Partial Thromboplast Time 27 24-35 SEC Sodium Level 137 135-145 MMOL/L Potassium Level 3.7 3.6-5.0 MMOL/L Chloride Level 103 98-107 MMOL/L Carbon Dioxide Level 21 21-32 MMOL/L Anion Gap 13 5-14 MMOL/L Blood Urea Nitrogen 14 7-18 MG/DL Creatinine 1.05 0.60-1.30 MG/DL Estimat Glomerular Filtration Rate 74 BUN/Creatinine Ratio 13 Glucose Level 150 H 70-105 MG/DL Calcium Level 9.3 8.5-10.1 MG/DL Corrected Calcium 9.0 8.5-10.1 MG/DL Magnesium Level 1.5 L 1.6-2.4 MG/DL Total Bilirubin 0.7 0.1-1.0 MG/DL Aspartate Amino Transf (AST/SGOT) 12 5-34 U/L Alanine Aminotransferase (ALT/SGPT) 15 0-55 U/L Alkaline Phosphatase 68 40-136 U/L Myoglobin 14.9 10.0-92.0 NG/ML Troponin I < 0.028 <0.028 NG/ML Total Protein 7.7 6.4-8.2 GM/DL Albumin 4.4 3.2-4.5 GM/DL Lipase 21 8-78 U/L Influenza Type A (RT-PCR) Not Detected Not Detecte Influenza Type B (RT-PCR) Not Detected Not Detecte SARS-CoV-2 RNA (RT-PCR) Not Detected Not Detecte Urine Color YELLOW Urine Clarity CLEAR Urine pH 5.5 5-9 Urine Specific Warrior 1.020 1.016-1.022 Urine Protein NEGATIVE NEGATIVE Urine Glucose (UA) NEGATIVE NEGATIVE Urine Ketones TRACE H NEGATIVE Urine Nitrite POSITIVE H NEGATIVE Urine Bilirubin NEGATIVE NEGATIVE Urine Urobilinogen 0.2 < = 1.0 MG/DL Urine Leukocyte Esterase NEGATIVE NEGATIVE Urine RBC (Auto) TRACE H NEGATIVE Urine RBC NONE /HPF Urine WBC 2-5 /HPF Urine Squamous Epithelial Cells 0-2 /HPF Urine Crystals NONE /LPF Urine Bacteria LARGE H /HPF Urine Casts NONE /LPF Urine Mucus NEGATIVE /LPF Urine Culture Indicated YES My Orders Orders - RANDOLPH DAI Ct Head Wo-R/O Stroke (09/25/22 16:29) Cbc With Automated Diff (09/25/22 16:29) Magnesium (09/25/22 16:29) Chest 1 View, Ap/Pa Only (09/25/22 16:29) Ekg Tracing (09/25/22 16:29) Comprehensive Metabolic Panel (09/25/22 16:29) Myoglobin Serum (09/25/22 16:29) Protime With Inr (09/25/22 16:29) Partial Thromboplastin Time (09/25/22 16:29) O2 (09/25/22 16:29) Monitor-Rhythm Ecg Trace Only (09/25/22 16:29) Ed Iv/Invasive Line Start (09/25/22 16:29) Lipase (09/25/22 16:29) Troponin I [place] (09/25/22 16:29) Ua Culture If Indicated (09/25/22 16:29) Covid 19 Inhouse Test (09/25/22 16:30) Influenza A And B By Pcr (09/25/22 16:30) Meclizine Tablet (Antivert Tablet) (09/25/22 17:00) Ondansetron Injection (Zofran Injectio (09/25/22 17:00) Ct Angio Head/Neck (09/25/22 17:19) Iohexol Injection (Omnipaque 350 Mg/Ml 1 (09/25/22 17:30) Received Contrast (Hold Metformin- Contr (09/25/22 17:30) Ns (Ivpb) 100 Ml (Sodium Chloride 0.9% 1 (09/25/22 17:30) Ed Admission (Communication) (09/25/22 18:30) Urine Culture (09/25/22 18:08) Medications Given in ED Current Medications Medications Dose Ordered Sig/Michelle Route Start Time Stop Time Status Last Admin Dose Admin Iohexol 100 ml ONCE ONCE IV 09/25/22 17:30 09/25/22 17:31 DC 09/25/22 17:32 75 ML Meclizine HCl 25 mg ONCE ONCE PO 09/25/22 17:00 09/25/22 17:02 DC 09/25/22 17:28 25 MG Ondansetron HCl 4 mg ONCE ONCE IVP 09/25/22 17:00 09/25/22 17:02 DC 09/25/22 17:28 4 MG Sodium Chloride 100 ml ONCE ONCE IV 09/25/22 17:30 09/25/22 17:31 DC 09/25/22 17:32 100 ML Vital Signs/I&O 09/25/22 09/25/22 16:20 18:44 Pulse 89 85 Resp 37 30 B/P (MAP) 156/75 (102) 150/72 Pulse Ox 94 95 O2 Delivery Room Air Capillary Refill : Less Than 3 Seconds Blood Pressure Mean: 102 ECG Comment Sinus rhythm with short UT interval, right bundle branch block, left anterior fascicular block, 88 bpm, QRS duration 150 MS, QTc 423 MS. Departure Communication (PCP) Reviewed previous ER visits, H&P, lab testing. Patient with acute onset of dizziness while at home. Patient stood up and walk and noted to have a unteady gait. Denies the room spinning. Patient on arrival complaining of generalized weakness and nausea. Dizziness has improved. No headache, unilateral weakness. No obvious facial droop but is sluggish to. No history of stroke but with stroke risk factors. Difficulty obtaining a initial NIH. Patient with generalized extremity weakness. Very limited resistance against gravity on all extremities. Not able to assess the ataxia. No dysarthria or aphasia. No appreciation of nystagmus. Patient has had intermittent chest pain last week and been taken nitro with improvement. No chest pain or short of breath today. Follows Dr. Arias mental health nurse. Patient had a cardiac cath performed last month with a balloon placed in the LAD. Currently on Plavix. CT scan of the head, generalized cardiac work-up and lab work was ordered. CT scan of the head was negative for acute abnormality. EKG showed sinus rhythm with short UT interval, right bundle branch block, left anterior fascicular block. No ST elevation. Patient white blood count 11.9. Chemistry grossly unremarkable besides blood sugar 150. Normal troponin. Chest x-ray was negative for pneumonia. COVID and influenza negative. Patient urine did test positive for UTI and was given a dose of Rocephin. Patient was afebrile. Vital signs otherwise stable. CT scan of the head did not note any acute abnormality. Due to his global weakness, nausea and dizziness CT angio of the head and neck was ordered which did not note any large vessel occlusion. Patient was discussed with Dr. Neff neurologist at [facility] regarding patient's results. Due to patient being within timeframe of tPA considered providing this at this time however she recommended reassessing the patient. After reassessment patient's symptoms completely resolved. He had appropriate strength throughout. There was no evidence of limb ataxia. No visual changes. discussed these results with Dr. Neff who recommended no tPA. initially was concern for potential posterior versus brainstem infarct. Recommended admission with MRI to rule out for ischemic stroke. Patient did receive a liter of fluid. Patient did develop chest pain here had a recheck of his EKG which did not note any acute abnormality. Patient is currently chest pain-free. Troponin negative. Further cardiac evaluation. Impression Primary Impression: Dizziness Additional Impressions: UTI (urinary tract infection) Chest pain Nausea Disposition: ADMITTED INPATIENT Condition: Stable Admissions Decision to Admit Reason: Admit from ER (General) Decision to Admit/Date: Sep 25, 2022 Time/Decision to Admit Time: 19:40 Departure-Patient Inst. Referrals: DINO BROWN DO (PCP/Family) Primary Care Physician RANDOLPH DAI Sep 25, 2022 16:35
[2022-09-25 16:36] LABS: BASOPHILS % (AUTO) 0 % (0-10); EOSINOPHILS # (AUTO) 0.1 10^3/uL (0.0-0.3); EOSINOPHILS % (AUTO) 1 % (0-10); HEMATOCRIT 39 % (40-54); HEMOGLOBIN 12.6 g/dL (13.3-17.7); LYMPHOCYTES % (AUTO) 8 % (12-44); MEAN CORPUSCULAR HEMOGLOBIN 28 pg (25-34); MEAN CORPUSCULAR HGB CONC 32 g/dL (32-36); MEAN CORPUSCULAR VOLUME 86 fL (80-99); MEAN PLATELET VOLUME 10.2 fL (9.0-12.2); MONOCYTES # (AUTO) 0.8 10^3/uL (0.0-1.0); MONOCYTES % (AUTO) 7 % (0-12); NEUTROPHILS % (AUTO) 84 % (42-75); PLATELET COUNT 211 10^3/uL (130-400); WHITE BLOOD COUNT 11.9 10^3/uL (4.3-11.0)
[2022-09-25 16:49] LABS: ALBUMIN 4.4 GM/DL (3.2-4.5)
[2022-09-25 16:50] LABS: CHLORIDE 103 MMOL/L (98-107); POTASSIUM 3.7 MMOL/L (3.6-5.0); SODIUM 137 MMOL/L (135-145)
[2022-09-25 16:51] LABS: CALCIUM 9.3 MG/DL (8.5-10.1); INR 1.1 (0.8-1.4); PROTHROMBIN TIME PATIENT 13.9 SEC (12.2-14.7)
[2022-09-25 16:52] LABS: GLUCOSE 150 MG/DL (70-105); TOTAL PROTEIN 7.7 GM/DL (6.4-8.2)
[2022-09-25 16:53] LABS: CARBON DIOXIDE 21 MMOL/L (21-32)
[2022-09-25 16:54] LABS: BILIRUBIN,TOTAL 0.7 MG/DL (0.1-1.0)
[2022-09-25 16:55] LABS: ALKALINE PHOSPHATASE 68 U/L (40-136)
[2022-09-25 16:56] LABS: CREATININE SERUM 1.05 MG/DL (0.60-1.30); GFR ESTIMATED 74
[2022-09-25 16:57] LABS: BUN/CREATININE RATIO 13
[2022-09-25 16:58] LABS: ALANINE AMINOTRANSFERASE 15 U/L (0-55)
[2022-09-25 16:59] LABS: MAGNESIUM 1.5 MG/DL (1.6-2.4)
[2022-09-25 17:00] LABS: LIPASE 21 U/L (8-78)
[2022-09-25] MEDS ORDERED: ONDANSETRON 4 MG/2 ML (SDV) Z0FRAN IVP ONE (17:00)
[2022-09-25] MEDS ORDERED: MECLIZINE 25 MG TABLET PO ONE (17:00)
--- NOTE | 2022-09-25 17:07 | Diagnostic Imaging Report ---
CHEST 1 VIEW, AP/PA ONLY Indication: Chest pain. Comparison: 06/29/2022 Findings: No focal airspace disease in the visualized lungs. No pleural effusion or pneumothorax. Normal cardiomediastinal silhouette. Impression: 1. No acute cardiopulmonary process by portable radiography. Dictated by: Dictated on workstation # [id number]
--- NOTE | 2022-09-25 17:07 | Diagnostic Imaging Report ---
CLINICAL INDICATION: Patient complains of sudden-onset dizziness, nausea, diaphoresis. Patient denies chest pain and abdominal pain. EXAM: Axial CT scan of the brain performed without IV contrast. High-resolution axial CT brain images with sagittal and coronal reformations were also created. Auto Exposure Controls were utilized during the CT exam to meet ALARA standards for radiation dose reduction. COMPARISON: Head CT without contrast dated 02/08/2020. FINDINGS: There is no evidence of acute cerebral infarct, intracranial hemorrhage, or gross mass effect. There is no dense vessel sign. The brain parenchymal volume appears appropriate for patient's age. There are subtle patchy areas of low-attenuation white matter changes involving both cerebral hemispheres, likely representing mild chronic small vessel ischemic disease. There is normal chance-white matter distinction. There is no significant midline shift or herniation. There is no evidence of hydrocephalus. The basal cisterns are unremarkable. The skull, extracranial soft tissue, and orbits are unremarkable. There is large amount of consolidation involving the left sphenoid region which has progressed in the interim. There is sclerosis involving the symphysis pubis region. Temporal bones show no significant abnormality. IMPRESSION: 1: Mild age-related brain parenchymal changes with no CT evidence of acute intracranial process. There is no dense vessel sign. 2: There is interval progression of large amount of consolidation involving the sphenoid sinus. Results of this report were discussed with GRFIFIN Overton, via the telephone on 09/25/2022 at 1701 hours. Dictated by: Dictated on workstation # [id number]
[2022-09-25] MEDS ORDERED: HOLD METFORMIN - RECEIVED CONTRAST 20 ML VIAL IV SCH (17:30)
[2022-09-25] MEDS ORDERED: IOHEXOL 350 MG/ML 100 ML (OMNIPAQUE 350) VIAL IV ONE (17:30)
[2022-09-25] MEDS ORDERED: NS 100 ML (IVPB) BAG IV ONE (17:30)
--- NOTE | 2022-09-25 17:48 | Diagnostic Imaging Report ---
PROCEDURE: CT angiography of the head and CT angiography of the neck with and without contrast. TECHNIQUE: Contiguous noncontrast images were obtained from the skull base through the vertex. After intravenous contrast administration, helical CT angiography of the neck was performed. Source data was reformatted into 3D MIP projections. Delayed post contrast acquisition was also obtained. Auto Exposure Controls were utilized during the CT exam to meet ALARA standards for radiation dose reduction. INDICATION: Dizziness. Nausea. COMPARISON: CT head without contrast from 09/25/2022. FINDINGS: Ferd-kj-upadsqmt generalized parenchymal volume loss. Postcontrast head CT continues to demonstrate no evidence of large territorial infarction or intracranial hemorrhage. No hydrocephalus or extra-axial fluid collections. CTA demonstrates a left common carotid originating from the innominate. Atherosclerotic calcifications result in less than 50% narrowing of the bilateral internal carotid artery origins. The basilar, bilateral vertebral, common carotid, internal carotid, anterior cerebral, middle cerebral and posterior cerebral arteries demonstrate no high-grade narrowing, aneurysm or dissection. The dural venous sinuses are normally opacified. Jgkxgyxs-bt-gcbiyhpm spondylotic changes in the cervical spine. No acute osseous findings. Mucosal thickening in the left sphenoid sinus. The mastoids are clear. Multinodular thyroid with the largest nodule measuring at least 1.6 cm on the left. No acute findings in the visualized paravertebral soft tissues. The lung apices are clear. IMPRESSION: 1. No large vessel occlusion. No high-grade narrowing, aneurysm or dissection involving the major arteries in the head and neck. 2. Indeterminate thyroid nodules. Recommend nonemergent follow-up with dedicated ultrasound for further evaluation. Dictated by: Dictated on workstation # [id number]
[2022-09-25 18:30] LABS: CLARITY,URINE CLEAR; COLOR,URINE YELLOW; GLUCOSE, URINE (UA) NEGATIVE (NEGATIVE); PH,URINE 5.5 (5-9); PROTEIN,URINE NEGATIVE (NEGATIVE)
[2022-09-25 18:31] LABS: BACTERIA,URINE LARGE /HPF; BILIRUBIN,URINE NEGATIVE (NEGATIVE); KETONES,URINE TRACE (NEGATIVE); LEUKOCYTE ESTERASE ,URINE NEGATIVE (NEGATIVE); NITRITE,URINE POSITIVE (NEGATIVE); SQUAMOUS EPITHELIAL CELL,UR 0-2 /HPF
[2022-09-25 19:51] VITALS: BP 147/78
[2022-09-25] MEDS ORDERED: MELATONIN 3 MG TABLET PO PRN (20:00)
[2022-09-25] MEDS ORDERED: MILK OF MAGNESIA 400 MG/5 ML 30 ML UDC PO PRN (20:00)
[2022-09-25] MEDS ORDERED: LACTULOSE SYRUP 10GM/15ML 30ML UDC PO PRN (20:00)
[2022-09-25] MEDS ORDERED: ANTACID SUSPENSION 30 ML UDC PO PRN (20:00)
[2022-09-25] MEDS ORDERED: ENOXAPARIN 40 MG/0.4 ML SYRINGE SC SCH (20:00)
[2022-09-25] MEDS ORDERED: ONDANSETRON 4 MG (ZOFRAN) ORAL DISSOLVE TAB PO PRN (20:00)
[2022-09-25] MEDS ORDERED: BISACODYL 10 MG SUPPOSITORY PR PRN (20:00)
[2022-09-25] MEDS ORDERED: CALCIUM CARBONATE 500 MG CHEW TABLET PO PRN (20:00)
[2022-09-25] MEDS ORDERED: polyethylene glycoL POWDER 17 GM (MIRALAX) PACK PO PRN (20:00)
[2022-09-25] MEDS ORDERED: ONDANSETRON 4 MG/2 ML (SDV) Z0FRAN IV PRN (20:00)
[2022-09-25] MEDS ORDERED: ACETAMINOPHEN 325 MG TABLET PO PRN (20:00)
[2022-09-25] MEDS ORDERED: QUEtiapine 200 MG (SEROquel) TAB IMMEDIATE RELEASE PO SCH (21:00)
[2022-09-25] MEDS ORDERED: cefTRIAXone IV/IM 1,000 MG in NS (IVPB) 50 ML 50 ML IV STA (21:01)
[2022-09-25] MEDS ORDERED: QUEtiapine 200 MG (SEROquel) TAB IMMEDIATE RELEASE ONE (21:30)
[2022-09-25] MEDS ORDERED: NS (IVPB) 50 ML 50 ML ONE (21:31)
[2022-09-25] MEDS ORDERED: cefTRIAXone 1,000 MG VIAL IV/IM ONE (21:31)
[2022-09-25 22:00] VITALS: BP 177/84
[2022-09-25] MEDS ORDERED: NITROGLYCERIN 0.4 MG SL TABLETS BTL 25'S SL PRN (22:15)
[2022-09-25] MEDS: DOCUSATE SODIUM 100 MG CAPSULE PO SCH (22:16)
[2022-09-25] MEDS: SENNOSIDES 8.6 MG (SENOKOT) TAB PO SCH (22:16)
[2022-09-25 23:10] VITALS: BP 132/60
[2022-09-26 04:00] VITALS: BP 123/59
[2022-09-26 05:50] LABS: BASOPHILS % (AUTO) 0 % (0-10); EOSINOPHILS % (AUTO) 1 % (0-10); HEMATOCRIT 33 % (40-54); HEMOGLOBIN 10.6 g/dL (13.3-17.7); LYMPHOCYTES # (AUTO) 0.7 10^3/uL (1.0-4.0); LYMPHOCYTES % (AUTO) 10 % (12-44); MEAN CORPUSCULAR HEMOGLOBIN 28 pg (25-34); MEAN CORPUSCULAR HGB CONC 32 g/dL (32-36); MEAN CORPUSCULAR VOLUME 86 fL (80-99); MEAN PLATELET VOLUME 10.8 fL (9.0-12.2); MONOCYTES # (AUTO) 0.5 10^3/uL (0.0-1.0); MONOCYTES % (AUTO) 7 % (0-12); NEUTROPHILS # (AUTO) 5.6 10^3/uL (1.8-7.8); NEUTROPHILS % (AUTO) 82 % (42-75); PLATELET COUNT 195 10^3/uL (130-400); WHITE BLOOD COUNT 6.9 10^3/uL (4.3-11.0)
[2022-09-26 06:08] LABS: POTASSIUM 3.5 MMOL/L (3.6-5.0)
[2022-09-26 06:09] LABS: CALCIUM 8.7 MG/DL (8.5-10.1)
[2022-09-26 06:13] LABS: CREATININE SERUM 1.03 MG/DL (0.60-1.30)
[2022-09-26 07:11] VITALS: BP 127/60
[2022-09-26 08:40] VITALS: BP 127/60
[2022-09-26] MEDS ORDERED: CLOPIDOGREL 75 MG TABLET PO SCH (09:00)
[2022-09-26] MEDS ORDERED: ASPIRIN 81 MG CHEWABLE TABLET PO SCH (09:00)
[2022-09-26] MEDS ORDERED: GADOTERATE 0.5 MMOL/ML (CLARISCAN) 20 ML VIAL IV ONE (10:30)
[2022-09-26] MEDS: SENNOSIDES 8.6 MG (SENOKOT) TAB PO SCH (11:26)
[2022-09-26] MEDS: DOCUSATE SODIUM 100 MG CAPSULE PO SCH (11:26)
[2022-09-26 11:53] VITALS: BP 172/77
--- NOTE | 2022-09-26 11:53 | Occupational Therapy Eval ---
OT Evaluation-General/PLF Medical Diagnosis Admission Date Sep 25, 2022 at 19:42 Medical Diagnosis: STROKE-LIKE SYMPTOMS Onset Date: Sep 25, 2022 Therapy Diagnosis Therapy Diagnosis: weakness, decreased activty tolerance Height/Weight Height (Feet): 5 Height (Inches): 8.00 Weight (Pounds): 220 Weight (Ounces): 0.0 Precautions Precautions/Isolations: Fall Prevention, Standard Precautions Weight Bear Status Weight Bearing Restriction: Full Weight Bearing Referral Referral Reason: Activity Tolerance, Self Care, Evaluation/Treatment Medical History Reviewed History: Yes Social History Home: Single Level Current Living Status: Spouse Entry Into Home: Stairs Without Railing Steps Into Home: 2 ADL-Prior Level of Function SCALE: Activities may be completed with or without assistive devices. 5-Kzcswvwcrz-yfymhpb completes the activity by him/herself with no assistance from a helper. 5-Set-up or Clean-up Assistance-helper sets up or cleans up; patient completes activity. [place] assists only prior to or following the activity. 4-Supervision or Touching Assistance-helper provides verbal cues and/or touching/steadying and/or contact guard assistance as patient completes activity. Assistance may be provided throughout the activity or intermittently. 3-Partial/Moderate Assistance-helper does LESS THAN HALF the effort. [place] lifts, holds or supports trunk or limbs, but provides less than half the effort. 2-Substantial/Maximal Assistance-helper does MORE THAN HALF the effort. [place] lifts or holds trunk or limbs and provides more than half the effort. 8-Nkemeubxc-pfwimr does ALL the effort. Patient does none of the effort to complete the activity. Or, the assistance of 2 or more helpers is required for the patient to complete the activity. If activity was not attempted, code reason: 7-Patient Refused. 9-Not Applicable-not attempted and the patient did not perform the activity before the current illness, exacerbation or injury. 10-Not Attempted due to Environmental Limitations-(lack of equipment, weather restraints, etc.). 88-Not Attempted due to Medical Conditions or Safety Concerns. ADL PLOF Comments Independent w/ ALL ADLS Self Care: Independent Functional Cognition: Independent Drive Self: Yes OT Current Status Subjective Agreeable to OT, spouse present Pain Numeric Pain Scale: 0-No Pain Mental Status/Objective Patient Orientation: Person, Place, Time, Situation Current Glasses/Contacts: Yes Hand Dominance: Right Upper Extremity ROM BUE ROM WFL Upper Extremity Coordination INTACT Upper Extremity Sensation INTACT Upper Extremity Strength +4/5 grossly BUE ADL-Treatment ADL-Current no AD w/ ADLS Eating (QC): 88 (NPO for MRI) Oral Hygiene (QC): 5 Shower/Bathe Self (QC): 88 Upper Body Dressing (QC): 5 Lower Body Dressing (QC): 5 On/Off Footwear (QC): 5 Toileting Hygiene (QC): 5 Personal items of necklace medical tags. watch, wedding band and glasses given to Education OT Patient Education: Correct positioning, Exercise program, Modified ADL techniques, Progress toward Goal/Update tx plan, Purpose of tx/functional activities, Reviewed precautions, Rehab process, Safety issues, Transfer techniques Teaching Recipient: Patient, Family Teaching Methods: Demonstration, Discussion Response to Teaching: Return Demonstration OT Assisted Goals Assisted Goals 1=Demonstrate adherence to instructed precautions during ADL tasks. 2=Patient will verbalize/demonstrate understanding of assistive de vices/modifications for ADL. 3=Patient will improve strength/tolerance for activity to enable patient to perform ADL's. OT Education/Plan Problem List/Assessment Assessment: No Skilled OT Needs ID'd Discharge Recommendations Plan/Recommendations: Discontinue OT Therapy Discharge Recommendati: Home & Family Treatment Plan/Plan of Care Patient would benefit from OT for education, treatment and training to promote independence in ADL's, mobility, safety and/or upper extremity function for ADL's. Plan of Care: OTHER (EVAL ONLY) Treatment Duration: Sep 26, 2022 Frequency: 1 time per week Estimated Hrs Per Day: .25 hour per day Agreement: Yes Rehab Potential: Good Time Start Time: 10:36 Stop Time: 10:48 DATE: Sep 26, 2022 Total Time Billed (hr/min): 12 Billed Treatment Time EVM 12 min ISABELLE GAUTHIER OT Sep 26, 2022 11:53
--- NOTE | 2022-09-26 12:00 | Physical Therapy Evaluation ---
PT Evaluation-General Medical Diagnosis Admission Date Sep 25, 2022 at 19:42 Medical Diagnosis: STROKE-LIKE SYMPTOMS Onset Date: Sep 25, 2022 Therapy Diagnosis Therapy Diagnosis: debility Height/Weight Height (Feet): 5 Height (Inches): 8.00 Weight (Pounds): 220 Weight (Ounces): 0.0 Precautions Precautions/Isolations: Fall Prevention, Standard Precautions Referral Physician: Michael Reason for Referral: Evaluation/Treatment Medical History Pertinent Medical History: CAD, DM, HTN, Prostate CA Current History EMS secondary to sudden onset dizziness, nausea and diaphoresis Reviewed History: Yes Social History Home: Single Level Current Living Status: Spouse Entry Into Home: Stairs Without Railing PT Steps Into Home: 4 Prior Prior Level of Function SCALE: Activities may be completed with or without assistive devices. 9-Cvnezgbwbi-xtsqrvf completes the activity by him/herself with no assistance from a helper. 5-Set-up or Clean-up Assistance-helper sets up or cleans up; patient completes activity. [place] assists only prior to or following the activity. 4-Supervision or Touching Assistance-helper provides verbal cues and/or touching/steadying and/or contact guard assistance as patient completes activity. Assistance may be provided throughout the activity or intermittently. 3-Partial/Moderate Assistance-helper does LESS THAN HALF the effort. [place] lifts, holds or supports trunk or limbs, but provides less than half the effort. 2-Substantial/Maximal Assistance-helper does MORE THAN HALF the effort. [place] lifts or holds trunk or limbs and provides more than half the effort. 6-Jhhlxtsmt-borxjm does ALL the effort. Patient does none of the effort to complete the activity. Or, the assistance of 2 or more helpers is required for the patient to complete the activity. If activity was not attempted, code reason: 7-Patient Refused. 9-Not Applicable-not attempted and the patient did not perform the activity before the current illness, exacerbation or injury. 10-Not Attempted due to Environmental Limitations-(lack of equipment, weather restraints, etc.). 88-Not Attempted due to Medical Conditions or Safety Concerns. Bed Mobility: 6 Transfers (B,C,W/C): 6 Gait: 6 Stairs: 6 Indoor Mobility (Ambulation): Independent Stairs: Independent Prior Devices Use: None PT Evaluation-Current Subjective Patient agrees to PT. Objective Patient Orientation: Normal For Age ROM/Strength ROM Lower Extremities bilateral LE WFL Strength Lower Extremities 5/5 grossly bilateral LE all planes Integumentary/Posture Bowel Incontinence: No Bladder Incontinence: No Posture WFL Neuromuscular (Tone, Coordination, Reflexes) grossly intact Sensory Vision: Functional Hearing: Functional Transfers Lying to Sitting/Side of Bed(Q: 6 Sit to Stand (QC): 6 Chair/Sjk-lf-Rgpta Xfer(QC): 6 Gait Mode of Locomotion: Walk Anticipated Mode of Locomotion: Walk Walk 10 feet (QC): 6 Walk 50 ft with 2 Turns(QC): 6 Walk 150 ft (QC): 6 Distance: 300' Gait Assistive Device: None Comments/Gait Description safe and functional with no deviation Stairs #of Steps: 12 1 Step (curb) (QC): 6 4 Steps (QC): 6 12 Steps (QC): 6 Balance Sitting Static: Normal Sitting Dynamic: Normal Standing Static: Normal Standing Dynamic: Normal Assessment/Needs Patient is currently at independent [facility] with all gross motor skills safely and does not require skilled PT intervention at this time. Rehab Potential: Fair PT Plan Treatment/Plan Treatment Plan: Discontinue PT, goals met Treatment Duration: Sep 26, 2022 Frequency: 1 time per week Estimated Hrs Per Day: .25 hour per day Patient and/or Family Agrees t: Yes Time Time In: 1038 Time Out: 1046 DATE: Sep 26, 2022 Total Billed Treatment Time: 8 Total Billed Treatment 1 visit EVLowC 8 min TARYN SUÁREZ PT Sep 26, 2022 12:00
--- NOTE | 2022-09-26 14:13 | Diagnostic Imaging Report ---
PROCEDURE: MR imaging of the brain with and without contrast. TECHNIQUE: Multiplanar, multisequence MR imaging of the brain was performed with and without contrast. INDICATION: Dizziness. COMPARISON: CT of the head on 09/25/2022. FINDINGS: No acute infarct. No acute or chronic hemorrhage. The ventricles and cortical sulci are normal. The expected flow voids are maintained. Scattered T2/flair hyperintense signal within the periventricular and subcortical white matter. Mild prominence of the ventricles and cortical sulci. Mild mucosal thickening within the sphenoid sinus. The globes and orbits are normal. The mastoids demonstrate minimal right mastoid effusions. The skull is normal. The sella and pituitary gland are normal. No mass or abnormal enhancement. No midline shift. IMPRESSION: No acute infarct, hemorrhage, or hydrocephalus. No mass or abnormal enhancement. Mucosal thickening within the sphenoid sinus may be seen with sinusitis. Dictated by: Dictated on workstation # [id number]
[2022-09-26 15:54] VITALS: BP 151/80
== END 2022-09-26 16:05 | disposition home or self-care (01) ==
LOC: EDUNIT# 16:17 → ER 16:18 → UNDOADMOB 19:42 → 4TH 19:42 → UNDODISOB 09-26 16:05
PROVIDERS: ADMIT Internal Medicine; ATTEND Internal Medicine
DX: R42 Dizziness and giddiness (principal); R55 Syncope and collapse; N39.0 Urinary tract infection, site not specified; R07.9 Chest pain, unspecified; R11.0 Nausea; Z79.01 Long term (current) use of anticoagulants
CPT/HCPCS: 70450; 70496; 70498; 70553; 71045; 80048; 80053; 81000; 83690; 83735; 83874; 84484; 85025 ×2; 85610; 85730; 87077; 87088; 87636; 93005; 93041; 96366; 96372; 97161; 97166; 99284; G0378; 36415; 87186

== ENCOUNTER 2022-09-28 14:26 | Day surgery (SDC) | payer MEDICARE ==
[~2022-09-28] VITALS: Ht 172 cm; Wt 103.2 kg
[2022-09-28] VITALS (8 sets, daily range): BP systolic 119–145; BP diastolic 50–70
[2022-09-28] MEDS ORDERED: HEParin (CATH LAB) 2,000 ML IV ONE (14:36)
[2022-09-28] MEDS ORDERED: NS IV 1000 ML 1,000 ML ONE (14:36)
[2022-09-28] MEDS ORDERED: LIDOCAINE 1% INJ 20 ML VIAL ONE (14:36)
[2022-09-28] MEDS ORDERED: NS IV 1000 ML 1,000 ML IV ONE (14:45)
[2022-09-28 15:00] LABS: HEMATOCRIT 35 % (40-54); HEMOGLOBIN 11.4 g/dL (13.3-17.7); MEAN CORPUSCULAR HEMOGLOBIN 28 pg (25-34); MEAN CORPUSCULAR HGB CONC 32 g/dL (32-36); MEAN CORPUSCULAR VOLUME 85 fL (80-99); MEAN PLATELET VOLUME 10.1 fL (9.0-12.2); PLATELET COUNT 236 10^3/uL (130-400); WHITE BLOOD COUNT 6.5 10^3/uL (4.3-11.0)
[2022-09-28] MEDS ORDERED: DOXA2TAB2 PO (15:04)
[2022-09-28 15:09] LABS: INR 1.1 (0.8-1.4); PROTHROMBIN TIME PATIENT 13.9 SEC (12.2-14.7)
[2022-09-28 15:20] LABS: ALBUMIN 4.2 GM/DL (3.2-4.5); BILIRUBIN,TOTAL 0.5 MG/DL (0.1-1.0); CALCIUM 8.7 MG/DL (8.5-10.1); CREATININE SERUM 0.99 MG/DL (0.60-1.30); POTASSIUM 3.9 MMOL/L (3.6-5.0); TOTAL PROTEIN 6.7 GM/DL (6.4-8.2)
[2022-09-28] MEDS ORDERED: VERAPAMIL 5 MG/2 ML (CALAN) VIAL IV ONE (17:11)
[2022-09-28] MEDS ORDERED: fentaNYL INJECTION 100 MCG/2 ML VIAL ONE (17:11)
[2022-09-28] MEDS ORDERED: NITRO DRIP 25000 MCG/D5W 250 ML IV ONE (17:11)
[2022-09-28] MEDS ORDERED: MIDAZOLAM INJ 5 MG/5 ML VIAL ONE (17:11)
[2022-09-28] MEDS ORDERED: HEParin 1000 UNIT/ML (10ML VIAL) FOR BOLUS ONE (17:11)
[2022-09-28] MEDS ORDERED: EPTIFIBATIDE BOLUS 20 ML IV ONE (17:41)
[2022-09-28] MEDS ORDERED: CLOPIDOGREL 75 MG TABLET ONE (18:32)
[2022-09-28] MEDS ORDERED: ASPIRIN 81 MG CHEWABLE TABLET ONE (18:32)
--- NOTE | 2022-09-28 18:33 | Cardiac Procedure Note-CS/ASA ---
Pre-Procedure Note Pre-Op Procedure Note Date of Available H&P: Sep 27, 2022 Date H&P Reviewed: Sep 28, 2022 Time H&P Reviewed: 17:15 History & Physical: H&P Reviewed, No changes noted Moderate Sedation PreProcedure ASA Score 3 Airway Lungs Heart ASA score ASA 1: a normal healthy patient ASA 2: a patient with a mild systemic disease (mid diabetes, controlled hypertension, obesity ASA 3: a patient with a severe systemic disease that limits activity (angina, COPD, prior Myocardial infarction) ASA 4: a patient with an incapacitating disease that is a constant threat to life (CHF, renal failure) ASA 5: a moribund patient not expected to survive 24 hrs. (ruptured aneurysm) ASA 6: a declared brain- patient whose organs are being harvested. For emergent operations, add the letter E after the classification Mallampati Classification Grade 2 Sedation Plan Analgesia, Amnesia, Plan communicated to team members The patient is an appropriate candidate to undergo the planned procedure, sedation, and anesthesia. The patient immediately re-assessed prior to indication. DUSTY GARCIA MD FACP FAC CCDS Sep 28, 2022 18:33
--- NOTE | 2022-09-28 18:55 | Cardiac Cath Report ---
CARDIAC CATHETERIZATION DATE OF PROCEDURE: 09/28/22 INDICATION: Recurrent angina HISTORY: The patient is a 77 year old male with known CAD, most recently with balloon-only angioplasty to LAD, now with recurrent angina despite anti-anginal therapy PROCEDURES PERFORMED: 1. Cor angio 2. LHC 3. PCI to mid LAD PROCEDURE DESCRIPTION: After informed consent and in the fasting state, left heart catheterization was performed through the R radial artery utilizing a 6 Polish system by percutaneous approach. 6F EBU 3.5 for LCA, 6F JR4 for LHC and RCA. All catheters were exchanged over a guidewire. HEMODYNAMICS: LVEDP 13 mmHg; no significant pressure gradient across the aortic valve CORONARY ANGIOGRAPHY: Left main coronary artery: Ok Left anterior descending coronary artery: 95% mid LAD -> 0% post Xience Skypoint 2.5 x 28 stent Left circumflex coronary artery: Mild plaques Right coronary artery: Dominant. Patent stents in prox, mid, and distal vessel. 60-70% distal RCA stenosis PERCUTANEOUS CORONARY INTERVENTION: Guide: 6F Q 3.5 Wire: Omni iFR/FFR wire iFR prior to intervention: 0.22 Balloon: Mini Trek 2x30 Stent: Xience Skypoint 2.5x28 deployed at 10 mandi Pre-intervention stenosis: 95% Pre-intervention flow: CAROL 1 Post-intervention stenosis: 0% Post-intervention flow: CAROL 3 Dominance: R coronary IMPRESSION: 1. No significant LMCA stenosis; severe LAD disease in the mid vessel treated with successful stenting of mid-LAD with Xience Skypoint 2.5x28, no residual st enosis; patent stents in the prox and mid and distal RCA with 60-70% distal stenosis; mild plaques in LCx 2. LVEDP 13 mmHg PLAN Continue DAPT May need stress test at a later date to evaluate the functional significance of distal RCA stenosis. DUSTY GARCIA MD FACP [facility] CCDS Sep 28, 2022 18:55
[2022-09-28] MEDS ORDERED: PATIENT MAY USE OWN MEDS, ALL PO SCH (19:00)
[2022-09-28] MEDS ORDERED: NITROGLYCERIN 0.4 MG SL TABLETS BTL 25'S SL PRN (19:00)
[2022-09-28] MEDS: inSUlin ASPART 1 UNIT/0.01 ML (PER UNIT) SC SCH (20:12)
[2022-09-28] MEDS: NS IV 1000 ML 1,000 ML IV SCH (20:37)
[2022-09-28] MEDS ORDERED: QUEtiapine 200 MG (SEROquel) TAB IMMEDIATE RELEASE PO SCH (21:00)
[2022-09-28] MEDS ORDERED: NON-FORMULARY MEDICATION 1 EA EA (Fish Oil/Dha/Epa (Fish Oil 1,200 mg Fish Oil) 1 EACH) PO SCH (21:00)
[2022-09-28] MEDS ORDERED: NON-FORMULARY MEDICATION 1 EA EA (Atenolol 100 MG) PO SCH (21:00)
[2022-09-28] MEDS ORDERED: ATENOLOL 25 MG TABLET PO SCH (21:00)
[2022-09-28] MEDS ORDERED: NON-FORMULARY MEDICATION 1 EA EA (Lovastatin 20 MG) PO SCH (21:00)
[2022-09-28] MEDS: OMEGA 3 (FISH OIL) 1000 MG CAP PO SCH (21:08)
[2022-09-29] VITALS: BP 110/55
[2022-09-29 04:00] VITALS: BP 125/44
[2022-09-29] MEDS ORDERED: THERAPEUTIC MULTIVITAMIN W/MINERALS TABLET PO SCH (07:00)
[2022-09-29] MEDS: NS IV 1000 ML 1,000 ML IV SCH (07:33)
[2022-09-29] MEDS: inSUlin ASPART 1 UNIT/0.01 ML (PER UNIT) SC SCH ×2 (07:34→10:22)
--- NOTE | 2022-09-29 07:49 | Progress Note - Cardiology ---
Cardiology SOAP Progress Note Subjective: Sitting up in bed Denies any c/o CP, SOB or palpitations Wants to go home No c/o discomfort at radial cath site Objective: I&O/Vital Signs 09/28/22 09/28/22 09/28/22 09/29/22 20:45 21:57 23:40 00:00 Temp 36.3 Pulse 64 63 Resp 18 17 B/P (MAP) 125/50 (75) 110/55 (73) Pulse Ox 96 94 O2 Delivery Room Air Room Air Room Air 09/29/22 09/29/22 09/29/22 09/29/22 01:00 04:00 04:01 07:00 Temp 36.8 Pulse 60 56 57 Resp 21 B/P (MAP) 125/44 (71) Pulse Ox 95 O2 Delivery Room Air 09/29/22 09/29/22 08:00 08:00 Temp 36.0 Pulse 67 74 Resp 18 B/P (MAP) 133/60 (84) 145/60 (87) Pulse Ox 96 95 O2 Delivery Room Air Room Air 09/29/22 00:00 Intake Total 480 ml Output Total 375 ml Balance 105 ml Weight (Pounds): 220 Weight (Ounces): 0.0 Weight (Calculated Kilograms): 99.448829 Side: right Condition: extremity w/d/p, other (radial pulse palpable; no bruising noted; occlusive dressing D&I) Constitutional: AAO x 3, well-developed Respiratory: No accessory muscle use, No respiratory distress; chest expansion is symmetric, chest is bilaterally symmetric, lungs clear to auscultation Cardiovascular: regular rate-rhythm; No JVD; S1 and S2 Gastrointestional: No tender; soft, round; No guarding; audible bowel sounds Extremities: no lower extremity edema bilateral Neurologic/Psychiatric: other (moves all extremities) Skin: No rash on exposed areas, No ulcerations on exposed areas Results/Procedures: Labs Laboratory Tests 09/28/22 14:53: White Blood Count 6.5, Red Blood Count 4.14L, Hemoglobin 11.4L, Hematocrit 35L, Mean Corpuscular Volume 85, Mean Corpuscular Hemoglobin 28, Mean Corpuscular Hemoglobin Concent 32, Red Cell Distribution Width 14.0, Platelet Count 236, Mean Platelet Volume 10.1, Prothrombin Time 13.9, INR Comment 1.1, Activated Partial Thromboplast Time 27, Sodium Level 140, Potassium Level 3.9, Chloride Level 109H, Carbon Dioxide Level 22, Anion Gap 9, Blood Urea Nitrogen 16, Creatinine 0.99, Estimat Glomerular Filtration Rate 79, BUN/Creatinine Ratio 16, Glucose Level 121H, Calcium Level 8.7, Corrected Calcium 8.5, Total Bilirubin 0.5, Aspartate Amino Transf (AST/SGOT) 14, Alanine Aminotransferase (ALT/SGPT) 18, Alkaline Phosphatase 62, Total Protein 6.7, Albumin 4.2, Triglycerides Level 161H, Cholesterol Level 101, LDL Cholesterol Direct 46, VLDL Cholesterol 32, HDL Cholesterol 28L 09/28/22 20:01: Glucometer 166H 09/29/22 07:57: White Blood Count 6.0, Red Blood Count 3.68L, Hemoglobin 10.4L, Hematocrit 31L, Mean Corpuscular Volume 85, Mean Corpuscular Hemoglobin 28, Mean Corpuscular Hemoglobin Concent 33, Red Cell Distribution Width 13.9, Platelet Count 208, Mean Platelet Volume 10.4 Laboratory Tests 09/28/22 14:53 09/29/22 07:57 A/P: Assessment: CAD: - Cardiac cath of August 25, 2014 showed 80 to 90% proximal right coronary artery stenosis, to which successful stenting was carried out with Promus Premier 3.5 x 12 mm stent deployed at 20 atmospheres. Patent mid and distal right coronary artery stents (known to be EZEKIEL placed in 2008). The distal right coronary artery stent (known to be a bare metal stent placed [id number]) has approximately 40% in- stent restenosis. The left anterior descending artery has 30 to 40% proximal and approximately 50% mid vessel stenosis. Well preserved global left ventricular systolic function with an ejection fraction of 50 to 55%. Normal left ventricular end diastolic pressure. No significant mitral regurgitation. - Myocardial perfusion imaging from 06-07-2021 showed mod amt of basal inferior ischemia (SDS 7). LVEF 62% - Echocardiogram of showed LVEF 60-65%. Grade 1 diastolic dysfunction. AoV thickening - Cardiac cath of 06-14-21: Coronary artery disease, mild to moderate. The right coronary artery is extensively stented and there are moderate in-stent restenosis at a few spots. Normal left ventricular end-diastolic pressure. Well preserved global left ventricular systolic function with ejection fraction of 50% to 55% - Cardiac cath of 08-16-22: CAD. LMCA Ok; LAD occluded mid-vessel to which successful balloon-only angioplasty resulted in improvement of stenosis to less than 10% residual and normal antegrade flow; LCx mild plaques; RCA dominant with mild to mod disease and patent stents present in its prox, mid, and distal portions. LVEDP: 15 mmHg. LV angiography not performed - Cardiac cath of 09-29-22: No significant LMCA stenosis; severe LAD disease in the mid vessel treated with successful stenting of mid-LAD with Xience Skypoint 2.5x28, no residual stenosis; patent stents in the prox and mid and distal RCA with 60-70% distal stenosis; mild plaques in LCx. LVEDP 13 mmHg Hypertension, labile: - BP normal on 24 hr amb bp monitoring of 03/02-03/03/16 Hyperlipidemia - being treated with lovastatin, followed by PCP CHAPIN (+) in Mar 2020 Diabetes mellitus - which is followed by Dr. Rai Obesity - Elevated body mass index of approximately 35 Carotid dz - Mild carotid art disease on carotid u/s of 11-25-20 Thyroid nodules - Incidental note of bilat thyroid nodules: 2.4x1.3x1.5 on R and 3.1x2x2 cm on the left - following with Dr. Rai (per carotid u/s of July 2018) Occ postural dizziness - No evidence of orthostasis on the office visit of 10/04/15 - no c/o at this time No evidence of AAA on an abd ao screening scan of 08/08/16 Oncology - Prostatectomy for prostate CA at [facility] in April 2019 - subsequent loss of micturition control treat with AMS 800 Urinary Control System implanted by Dr Gotti at [facility] Plan: S/P cardiac cath with successful intervention OK to discharge home today Keep out pt f/u as already scheduled Continue current cardiac regimen including DAPT, BB and statin YAS PAYTON Sep 29, 2022 07:49
--- NOTE | 2022-09-29 07:52 | Discharge Inst-Cardiology ---
Discharge Inst-Cardiac Discharge Medications Continued Medications: Aspirin (Aspirin) 81 Mg Tab.chew 81 MG PO DAILY, TAB Atenolol (Atenolol) 50 Mg Tablet 100 MG PO BID, TAB TAKE 2 (50MG) TABS Clopidogrel Bisulfate (Clopidogrel) 75 Mg Tablet 75 MG PO DAILY, TAB Doxazosin Mesylate (Doxazosin Mesylate) 2 Mg Tablet 2 MG PO HS, TAB Fish Oil/Dha/Epa (Fish Oil 1,200 mg Fish Oil) 1,200 Mg-144 Mg-216 Mg Capsule 1 EACH PO BID, CAP Lisinopril (Lisinopril) 20 Mg Tablet 20 MG PO DAILY, TAB Lovastatin (Lovastatin) 20 Mg Tablet 20 MG PO HS, TAB LAST FILL DATE 06-02-2022 #90/90 DAY SUPPLY Metformin HCl (Metformin HCl) 500 Mg Tablet 500 MG PO BID, TAB Multivitamin (Multivitamin) 1 Each Tablet 1 EACH PO DAILY, TAB Nifedipine (Nifedipine ER) 60 Mg Tab.er.24 60 MG PO DAILY, TAB LAST FILL DATE 06-02-2022 #90/90 DAY SUPPLY Nitroglycerin (Nitroglycerin) 0.4 Mg Tab.subl 0.4 MG SL UD PRN for CHEST PAIN, TAB Quetiapine Fumarate (Quetiapine Fumarate) 200 Mg Tablet 200 MG PO HS, TAB Patient Instructions Patient Instructions: DO NOT RESTART METFORMIN UNTIL 10-01-22 PLEASE KEEP FOLLOW UP APPOINTMENT TO SEE DR. GARCIA ON 11-02-22 AT 2:00 P.M. YAS PAYTON Sep 29, 2022 07:52
[2022-09-29 08:00] VITALS: BP_SYST 133; BP_SYST 145; BP_DIAS 60
[2022-09-29 08:06] LABS: HEMATOCRIT 31 % (40-54); HEMOGLOBIN 10.4 g/dL (13.3-17.7); MEAN CORPUSCULAR HEMOGLOBIN 28 pg (25-34); MEAN CORPUSCULAR HGB CONC 33 g/dL (32-36); MEAN CORPUSCULAR VOLUME 85 fL (80-99); MEAN PLATELET VOLUME 10.4 fL (9.0-12.2); PLATELET COUNT 208 10^3/uL (130-400)
[2022-09-29 08:29] LABS: CALCIUM 8.4 MG/DL (8.5-10.1); CREATININE SERUM 0.85 MG/DL (0.60-1.30); POTASSIUM 3.9 MMOL/L (3.6-5.0)
[2022-09-29] MEDS: OMEGA 3 (FISH OIL) 1000 MG CAP PO SCH (08:31)
[2022-09-29] MEDS ORDERED: ATEN50TA PO (08:52)
[2022-09-29] MEDS ORDERED: LISI20TA26 PO (08:52)
[2022-09-29] MEDS ORDERED: CLOPIDOGREL 75 MG TABLET PO SCH (09:00)
[2022-09-29] MEDS ORDERED: ASPIRIN 81 MG CHEWABLE TABLET PO SCH (09:00)
[2022-09-29] MEDS ORDERED: NIFEdipine Extended Release 30 MG TABLET PO SCH (09:00)
[2022-09-29] MEDS ORDERED: NON-FORMULARY MEDICATION 1 EA EA (Multivitamin 1 EACH) PO SCH (09:00)
[2022-09-29] MEDS ORDERED: ATENOLOL 25 MG TABLET PO SCH (09:00)
--- NOTE | 2022-09-29 12:04 | Progress Note - Cardiology ---
Cardiology SOAP Progress Note Subjective: No cp or palp or syncope or shortness of breath or hand or wrist discomfort/discoloration No focal weakness No n/v/d Objective: I&O/Vital Signs 09/29/22 09/29/22 09/29/22 09/29/22 01:00 04:00 04:01 07:00 Temp 36.8 Pulse 60 56 57 Resp 21 B/P (MAP) 125/44 (71) Pulse Ox 95 O2 Delivery Room Air 09/29/22 09/29/22 09/29/22 08:00 08:00 08:00 Temp 36.0 Pulse 67 74 Resp 18 B/P (MAP) 133/60 (84) 145/60 (87) Pulse Ox 98 96 95 O2 Delivery Room Air Room Air Room Air 09/29/22 00:00 Intake Total 480 ml Output Total 375 ml Balance 105 ml Weight (Pounds): 220 Weight (Ounces): 0.0 Weight (Calculated Kilograms): 99.242574 Side: right Condition: extremity w/d/p, other (radial pulse palpable; no bruising noted; occlusive dressing D&I) Constitutional: AAO x 3, well-developed Respiratory: No accessory muscle use, No respiratory distress; chest expansion is symmetric, chest is bilaterally symmetric, lungs clear to auscultation Cardiovascular: regular rate-rhythm; No JVD; S1 and S2 Gastrointestional: No tender; soft, round; No guarding; audible bowel sounds Extremities: no lower extremity edema bilateral Neurologic/Psychiatric: other (moves all extremities) Skin: No rash on exposed areas, No ulcerations on exposed areas Results/Procedures: Labs Laboratory Tests 09/28/22 14:53: White Blood Count 6.5, Red Blood Count 4.14L, Hemoglobin 11.4L, Hematocrit 35L, Mean Corpuscular Volume 85, Mean Corpuscular Hemoglobin 28, Mean Corpuscular Hemoglobin Concent 32, Red Cell Distribution Width 14.0, Platelet Count 236, Mean Platelet Volume 10.1, Prothrombin Time 13.9, INR Comment 1.1, Activated Partial Thromboplast Time 27, Sodium Level 140, Potassium Level 3.9, Chloride Level 109H, Carbon Dioxide Level 22, Anion Gap 9, Blood Urea Nitrogen 16, Creatinine 0.99, Estimat Glomerular Filtration Rate 79, BUN/Creatinine Ratio 16, Glucose Level 121H, Calcium Level 8.7, Corrected Calcium 8.5, Total Bilirubin 0.5, Aspartate Amino Transf (AST/SGOT) 14, Alanine Aminotransferase (ALT/SGPT) 18, Alkaline Phosphatase 62, Total Protein 6.7, Albumin 4.2, Triglycerides Level 161H, Cholesterol Level 101, LDL Cholesterol Direct 46, VLDL Cholesterol 32, HDL Cholesterol 28L 09/28/22 20:01: Glucometer 166H 09/29/22 07:57: White Blood Count 6.0, Red Blood Count 3.68L, Hemoglobin 10.4L, Hematocrit 31L, Mean Corpuscular Volume 85, Mean Corpuscular Hemoglobin 28, Mean Corpuscular Hemoglobin Concent 33, Red Cell Distribution Width 13.9, Platelet Count 208, Mean Platelet Volume 10.4, Sodium Level 141, Potassium Level 3.9, Chloride Level 109H, Carbon Dioxide Level 25, Anion Gap 7, Blood Urea Nitrogen 12, Creatinine 0.85, Estimat Glomerular Filtration Rate 90, BUN/Creatinine Ratio 14, Glucose Level 133H, Calcium Level 8.4L 09/29/22 10:22: Glucometer 209H Microbiology 09/28/22 MRSA Screen - Final, Complete MRSA not isolated Laboratory Tests 09/28/22 14:53 09/29/22 07:57 A/P: Assessment: CAD: - Cardiac cath of August 25, 2014 showed 80 to 90% proximal right coronary artery stenosis, to which successful stenting was carried out with Promus Premier 3.5 x 12 mm stent deployed at 20 atmospheres. Patent mid and distal right coronary artery stents (known to be EZEKIEL placed in 2008). The distal right coronary artery stent (known to be a bare metal stent placed [id number]) has approximately 40% in- stent restenosis. The left anterior descending artery has 30 to 40% proximal and approximately 50% mid vessel stenosis. Well preserved global left ventricular systolic function with an ejection fraction of 50 to 55%. Normal left ventricular end diastolic pressure. No significant mitral regurgitation. - Myocardial perfusion imaging from 06-07-2021 showed mod amt of basal inferior ischemia (SDS 7). LVEF 62% - Echocardiogram of showed LVEF 60-65%. Grade 1 diastolic dysfunction. AoV thickening - Cardiac cath of 06-14-21: Coronary artery disease, mild to moderate. The right coronary artery is extensively stented and there are moderate in-stent restenosis at a few spots. Normal left ventricular end-diastolic pressure. Well preserved global left ventricular systolic function with ejection fraction of 50% to 55% - Cardiac cath of 08-16-22: CAD. LMCA Ok; LAD occluded mid-vessel to which successful balloon-only angioplasty resulted in improvement of stenosis to less than 10% residual and normal antegrade flow; LCx mild plaques; RCA dominant with mild to mod disease and patent stents present in its prox, mid, and distal portions. LVEDP: 15 mmHg. LV angiography not performed - Cardiac cath of 09-29-22: No significant LMCA stenosis; severe LAD disease in the mid vessel treated with successful stenting of mid-LAD with Xience Skypoint 2.5x28, no residual stenosis; patent stents in the prox and mid and distal RCA with 60-70% distal stenosis; mild plaques in LCx. LVEDP 13 mmHg Hypertension, labile: - BP normal on 24 hr amb bp monitoring of 03/02-03/03/16 Hyperlipidemia - being treated with lovastatin, followed by PCP CHAPIN (+) in Mar 2020 Diabetes mellitus - which is followed by Dr. Rai Obesity - Elevated body mass index of approximately 35 Carotid dz - Mild carotid art disease on carotid u/s of 11-25-20 Thyroid nodules - Incidental note of bilat thyroid nodules: 2.4x1.3x1.5 on R and 3.1x2x2 cm on the left - following with Dr. Rai (per carotid u/s of July 2018) Occ postural dizziness - No evidence of orthostasis on the office visit of 10/04/15 - no c/o at this time No evidence of AAA on an abd ao screening scan of 08/08/16 Oncology - Prostatectomy for prostate CA at [facility] in April 2019 - subsequent loss of micturition control treat with AMS 800 Urinary Control System implanted by Dr Gotti at [facility] Plan: S/P cardiac cath with successful intervention. I discussed findings and procedures with him in detail OK to discharge home today Keep out pt f/u as already scheduled Continue current cardiac regimen including DAPT, BB and statin DUSTY GARCIA MD FACP [facility] Sep 29, 2022 12:04
== END 2022-09-29 11:30 | disposition home or self-care (01) ==
LOC: CATH 14:26 → ICU 19:36 → CATH 09-29 11:30
PROVIDERS: ATTEND Internal Medicine Cardiovascular Disease
DX: I25.119 Atherosclerotic heart disease of native coronary artery with unspecified angina pectoris (principal); I10 Essential (primary) hypertension; E78.2 Mixed hyperlipidemia; E11.9 Type 2 diabetes mellitus without complications; E66.9 Obesity, unspecified; I65.23 Occlusion and stenosis of bilateral carotid arteries; R94.39 Abnormal result of other cardiovascular function study; E04.1 Nontoxic single thyroid nodule; R42 Dizziness and giddiness; Z79.899 Other long term (current) drug therapy; Z86.16 Personal history of COVID-19; Z79.84 Long term (current) use of oral hypoglycemic drugs; Z68.35 Body mass index [BMI] 35.0-35.9, adult; Z79.82 Long term (current) use of aspirin; Z87.891 Personal history of nicotine dependence; Z79.890 Hormone replacement therapy
CPT/HCPCS: 80048; 80053; 80061; 82947 ×2; 85027 ×2; 85610; 85730; 87081; 93005; 93458; 93571; C1725; C1769 ×2; C1874; C1887; C1894; C9600; 36415

== ENCOUNTER → 2022-12-19 | Outpatient (CLI) | payer MEDICARE ==
[~2022-12-19] VITALS: Ht 172 cm; Wt 101.0 kg
[~2022-12-19] MED LIST changes: +CATHETER FLUSH 10 ML SYR IVP PRN; +REGADENOSON 0.4 MG/5 ML SYR IV ONE
[2022-12-19 09:22] VITALS: BP 180/76
[2022-12-19 09:25] VITALS: BP 184/87
--- NOTE | 2022-12-20 13:15 | STRESS TEST ---
DATE OF SERVICE: 12/19/2022 RESTING AND POST REGADENOSON TECHNETIUM-99M TETROFOSMIN SPECT CT IMAGING ORDERING PHYSICIAN: DUSTY GARCIA MD; DARY; MARCELLO; JUSTO; PRIMARY PHYSICIAN: Ross Rai DO CLINICAL DIAGNOSIS: Coronary artery disease. Baseline images were carried out after injection of 10.37 mCi of technetium-99m tetrofosmin. This was followed by 0.4 mg of regadenoson and 31.4 mCi of technetium-99m tetrofosmin for stress imaging. The electrocardiogram showed sinus rhythm with right bundle branch block and left anterior fascicular block at baseline, which did not change significantly with regadenoson infusion. The patient tolerated the procedure well. Review of images at rest and following stress indicates somewhat diminished count uptake in the diaphragmatic wall of the left ventricle, both at rest and following regadenoson infusion. This is likely due to diaphragmatic attenuation. Gated images show normal global left ventricular systolic function with normal regional wall motion, including the diaphragmatic wall of the left ventricle. Left ventricular ejection fraction is calculated to be 64%. CONCLUSIONS: 1. No evidence of any significant myocardial ischemia or infarction on this study. 2. Normal regional wall motion. 3. Normal global left ventricular systolic function with a calculated ejection fraction of 64%. Job ID: [id number] DocumentID: [id number] Dictated Date: 12/20/2022 09:51:22 [place] [employer] Date: 12/20/2022 13:13:00 Dictated By: DUSTY GARCIA MD; DARY; MARCELLO; JUSTO;
== END ==
LOC: CARD 07:13
PROVIDERS: ATTEND Internal Medicine Cardiovascular Disease
DX: I25.10 Atherosclerotic heart disease of native coronary artery without angina pectoris (principal)
CPT/HCPCS: 78452; 93017; A9502